=== PATIENT | male | born 1945 | race African-American/Black ===

== ENCOUNTER 2019-09-12 14:24 | Outpatient (CLI) | payer MEDICARE, SELFPAY ==
--- NOTE | ~2019-09-12 | XR_ITS ---
EXAMINATION: XR lumbar spine 2-3V EXAM DATE: 09/12/2019 14:56 INDICATION: Low back pain. TECHNIQUE: Lumber spine frontal, lateral, lateral L5-S1 projections for interpretation. Comparison is made to prior examination from 06/17/2017. FINDINGS: Mild to moderate disc disease L-1-2, L3-4, L4-5 and L5-S1, mild at L2-3. Some large bridgi ng lower thoracic endplate osteophytes. Mild upper lumbar, moderate lower lumbar facet arthropathy. T here is 3 mm retrolisthesis L3 on L4. Sacrum, sacroiliac joints, sacral arcuate lines are intact. Mil d aortic arterial sclerosis. IMPRESSION: Mild to moderate lumbar spondylosis. Reviewed, dictated and finalized at location A.
== END 2019-09-12 14:25 | disposition home or self-care (01) ==
LOC: ANHIMG 14:32
PROVIDERS: PCP Family Medicine; Visit Provider Physician Assistant Medical
DX: G89.29 Other chronic pain (principal); M54.5 Low back pain; M47.816 Spondylosis without myelopathy or radiculopathy, lumbar region
CPT/HCPCS: 72100

== ENCOUNTER 2019-09-13 06:58 | Outpatient (CLI) | payer MEDICARE, SELFPAY ==
[2019-09-13 07:55] LABS: Hematocrit 43.3 % (42.0-52.0); Hemoglobin 14.6 g/dL (14.0-18.0); Mean Corpuscular HGB Conc 33.7 g/dl (32-36); Mean Corpuscular Hemoglobin 30.2 pg (26-34); Mean Corpuscular Volume 89.6 fl (80-100); Mean Platelet Volume 9.6 fl (7.4-10.4); Platelet Count Result 222 k/mm3 (150-375); Red Blood Count 4.83 M/mm3 (4.6-6.20); Red Cell Distribution Width 13.2 % (11.5-14.5); White Blood Count 7.1 K/mm3 (4.5-10.0)
[2019-09-13 08:19] LABS: Alanine Aminotransferase 22 U/L (4-50); Albumin Level 4.2 g/dL (3.5-5.1); Alkaline Phosphatase 106 U/L (38-126); Aspartate Amino Transferase 21 U/L (17-59); Bilirubin,Total 0.5 mg/dL (0.2-1.3); Blood Urea Nitrogen 19 mg/dL (9-20); Calcium 9.5 mg/dL (8.4-10.2); Carbon Dioxide 29 mmol/L (22-30); Chloride 105 mmol/L (98-107); Cholesterol 119 mg/dL (0-200); Estimated Glomerular Filt Rate > 60; Glucose 101 mg/dL (75-110); HDL Direct 48 mg/dL; Potassium 3.8 mmol/L (3.4-5.0); Sodium 141 mmol/L (137-145); Triglycerides 132 mg/dL (<150)
[2019-09-13 08:30] LABS: LDL Cholesterol Direct 43 mg/dL
[2019-09-13 08:42] LABS: Vitamin D 25 Hydroxy 25.6 ng/mL
[2019-09-13 08:50] LABS: Prostate Specific Antigen 1.7 ng/mL (< OR = 4.0)
== END 2019-09-13 06:59 | disposition home or self-care (01) ==
PROVIDERS: PCP Family Medicine; Visit Provider Physician Assistant Medical
DX: R53.82 Chronic fatigue, unspecified (principal); E78.5 Hyperlipidemia, unspecified; Z12.5 Encounter for screening for malignant neoplasm of prostate; E55.9 Vitamin D deficiency, unspecified
CPT/HCPCS: 36415; 80053; 80061; 82306; 82607; 84153; 84443; 85027; G0103

== ENCOUNTER 2020-01-11 15:51 | Outpatient (CLI) | payer MEDICARE, SELFPAY ==
[2020-01-11 17:54] LABS: Vitamin D 25 Hydroxy 29.4 ng/mL
== END 2020-01-11 15:52 | disposition home or self-care (01) ==
LOC: ANHLAB 15:52
PROVIDERS: PCP Family Medicine; Visit Provider Nurse Practitioner Family
DX: E55.9 Vitamin D deficiency, unspecified (principal)
CPT/HCPCS: 36415; 82306

== ENCOUNTER 2020-09-05 14:12 | Outpatient (CLI) | payer MEDICARE, SELFPAY ==
--- NOTE | ~2020-09-05 | XR_ITS ---
XR lumbar spine 6V w bending DATE: 09/05/2020 15:13 INDICATION: Low back pain TECHNIQUE: AP, lateral, bilateral oblique views. Flexion and extension lateral views COMPARISON: 09/12/2019 lumbar spine FINDINGS: Diffuse idiopathic skeletal hyperostosis of the thoracolumbar spine. There is moderate multilevel degenerative disc disease of the lumbar spine. No spondylolysis or spondylolisthesis. No fracture or bone destruction. The pedicles are intact. The sacroiliac joints are normal. IMPRESSION: Diffuse idiopathic skeletal hyperostosis of the thoracic spine Multilevel degenerative disc disease of the lumbar spine Reviewed, dictated and finalized at location A.
[2020-09-05 15:02] LABS: Basophils Percent Auto 0.3 % (0.2-1.2); Eosinophils Absolute Auto 0.1 K/mm3 (0-0.3); Eosinophils Percent Auto 0.8 % (0-4.4); Hematocrit 44.4 % (42.0-52.0); Hemoglobin 14.4 g/dL (14.0-18.0); Immature Granulocyte Absolute 0.02 K/mm3 (0.00-0.031); Immature Granulocyte Percent A 0.3 % (0-0.5); Lymphocytes Absolute Auto 2.34 K/mm3 (0.9-3.2); Lymphocytes Percent Auto 29.7 % (18.3-44.2); Mean Corpuscular HGB Conc 32.4 g/dl (32-36); Mean Corpuscular Hemoglobin 29.5 pg (26-34); Mean Platelet Volume 9.8 fl (7.4-10.4); Monocytes Absolute Auto 0.4 K/mm3 (0.1-0.6); Monocytes Percent Auto 4.9 % (2.6-8.5); Neutrophils Absolute Auto 5.1 K/mm3 (1.3-6.7); Platelet Count Result 187 k/mm3 (150-375); Red Blood Count 4.88 M/mm3 (4.6-6.20); Red Cell Distribution Width 13.2 % (11.5-14.5); White Blood Count 7.9 K/mm3 (4.5-10.0)
[2020-09-05 16:51] LABS: Vitamin D 25 Hydroxy 64.4 ng/mL
[2020-09-05 17:37] LABS: Alanine Aminotransferase 6 U/L (4-50); Albumin Level 4.5 g/dL (3.5-5.1); Alkaline Phosphatase 103 U/L (38-126); Aspartate Amino Transferase 20 U/L (17-59); Cholesterol 136 mg/dL (0-200); HDL Direct 65 mg/dL; Triglycerides 82 mg/dL (<150)
[2020-09-05 17:48] LABS: LDL Cholesterol Direct 40 mg/dL
[2020-09-05 18:08] LABS: Prostate Specific Antigen 2.1 ng/mL (< OR = 4.0); Thyroid Stimulating Hormone 0.676 uIU/mL (0.465-4.680)
== END 2020-09-05 14:13 | disposition home or self-care (01) ==
LOC: ANHLAB 14:16
PROVIDERS: PCP Family Medicine; Visit Provider Family Medicine
DX: E55.9 Vitamin D deficiency, unspecified (principal); M54.5 Low back pain; G89.29 Other chronic pain; E78.5 Hyperlipidemia, unspecified; Z12.5 Encounter for screening for malignant neoplasm of prostate; Z13.220 Encounter for screening for lipoid disorders; R53.82 Chronic fatigue, unspecified; M48.14 Ankylosing hyperostosis [Forestier], thoracic region; M51.36 Other intervertebral disc degeneration, lumbar region
CPT/HCPCS: 36415; 72114; 80061; 80076; 82306; 84153; 84443; 85025; G0103

== ENCOUNTER → 2020-09-24 16:22 | Outpatient (CLI) | payer MEDICARE, SELFPAY ==
--- NOTE | ~2020-09-24 | MR_ITS ---
EXAMINATION: MR brain/brain stem wo con DATE: 09/24/2020 18:49 INDICATION: Dizziness and giddiness. TECHNIQUE: Magnetic resonance imaging (MRI) of the brain and brainstem was performed without intraven ous contrast. Sequences included sagittal and axial T1-weighted FSE, axial diffusion-weighted FS EPI, axial T2*-weighted GRE, axial T2-weighted FLAIR Propeller, and axial T2-weighted Propeller. Apparent diffusion coefficient (ADC) maps were created. COMPARISON: Brain MRI 05/09/2012 FINDINGS: There are scattered areas of nonspecific increased T2-weighted signal intensity in the cere bral white matter and helen. There is no intracranial hemorrhage, acute infarction, or abnormal intrac ranial mass lesion. The ventricles are normal in size. There is mild mucosal thickening in the ethmoi d sinuses. There are likely changes of left ocular lens replacement surgery. The mastoid air cells ar e normal. IMPRESSION: 1. Moderate nonspecific cerebral white matter disease and pontine disease, which likely represents ch ronic small vessel ischemic disease, worsened from 05/09/2012. Reviewed, dictated and finalized at location A. IMPRESSION: 1. Moderate nonspecific cerebral white matter disease and pontine disease, whic h likely represents chronic small vessel ischemic disease, worsened from 05/09/19 13.
--- NOTE | ~2020-09-24 | MR_ITS ---
EXAMINATION: MR lumbar spine wo con DATE: 09/24/2020 18:49 INDICATION: Low back pain. TECHNIQUE: Magnetic resonance imaging (MRI) of the lumbar spine was performed without intravenous con trast. Sequences included sagittal T2-weighted FSE, sagittal T2-weighted FS FSE, sagittal T1-weighted FSE, and axial T2-weighted FSE. COMPARISON: Lumbar spine radiograph 09/05/2020 FINDINGS: There is 6 degrees levocurvature of lumbar spine. There is 3 mm retrolisthesis of L5 on S1. There is mild chronic height loss of L5 vertebral body. There is mildly decreased disc height from L 1-L2 through L4-L5 and moderately decreased disc height at L5-S1. The distal spinal cord signal inten sity is normal. The conus medullaris is at L1. The following disc levels are specifically discussed: L1-L2: The disc is bulging and has an annular fissure. There is mild bilateral facet joint osteoarthr itis. There is mild bilateral neural foraminal stenosis. There is mild central canal stenosis. L2-L3: The disc is bulging and has an annular fissure. There is mild bilateral facet joint osteoarthr itis. There is mild right and moderate left neural foraminal stenosis. There is mild central canal st enosis. L3-L4: The disc is bulging and has an annular fissure. There is mild bilateral facet joint osteoarthr itis. There is moderate bilateral neural foraminal stenosis. There is mild central canal stenosis. L4-L5: The disc is bulging and has an annular fissure. There is severe bilateral facet joint osteoart hritis. There is moderate bilateral neural foraminal stenosis. There is mild central canal stenosis. L5-S1: The disc is bulging and has an annular fissure. There is mild bilateral facet joint osteoarthr itis. There is moderate bilateral neural foraminal stenosis. There is mild central canal stenosis. IMPRESSION: 1. Moderate lumbar spondylosis. Reviewed, dictated and finalized at location A.
== END ==
PROVIDERS: PCP Family Medicine; Visit Provider Family Medicine
DX: R42 Dizziness and giddiness (principal); R51.9 Headache, unspecified; M47.817 Spondylosis without myelopathy or radiculopathy, lumbosacral region; R90.82 White matter disease, unspecified
CPT/HCPCS: 70551; 72148

== ENCOUNTER 2021-07-15 11:44 | Outpatient (CLI) | payer MEDICARE, SELFPAY ==
[2021-07-15 12:22] LABS: Basophils Absolute Auto 0.1 K/mm3 (0.0-0.1); Basophils Percent Auto 0.7 % (0.2-1.2); Eosinophils Absolute Auto 0.1 K/mm3 (0-0.3); Eosinophils Percent Auto 1.9 % (0-4.4); Hematocrit 42.2 % (42.0-52.0); Immature Granulocyte Absolute 0.02 K/mm3 (0.00-0.031); Immature Granulocyte Percent A 0.3 % (0-0.5); Lymphocytes Absolute Auto 2.43 K/mm3 (0.9-3.2); Mean Corpuscular HGB Conc 33.2 g/dl (32-36); Mean Corpuscular Hemoglobin 29.9 pg (26-34); Mean Platelet Volume 9.2 fl (7.4-10.4); Monocytes Absolute Auto 0.3 K/mm3 (0.1-0.6); Monocytes Percent Auto 4.3 % (2.6-8.5); Neutrophils Absolute Auto 4.4 K/mm3 (1.3-6.7); Neutrophils Percent Auto 59.8 % (45.5-73.1); Platelet Count Result 184 k/mm3 (150-375); Red Blood Count 4.69 M/mm3 (4.6-6.20); Red Cell Distribution Width 13.7 % (11.5-14.5); White Blood Count 7.4 K/mm3 (4.5-10.0)
[2021-07-15 12:34] LABS: Alanine Aminotransferase 6 U/L (4-50); Albumin Level 4.4 g/dL (3.5-5.1); Alkaline Phosphatase 121 U/L (38-126); Anion Gap 8 mmol/L (8-16); Aspartate Amino Transferase 20 U/L (17-59); Bilirubin,Total 0.8 mg/dL (0.2-1.3); Blood Urea Nitrogen 27 mg/dL (9-20); Calcium 8.7 mg/dL (8.4-10.2); Carbon Dioxide 27 mmol/L (22-30); Chloride 105 mmol/L (98-107); Cholesterol 123 mg/dL (0-200); Estimated Glomerular Filt Rate > 60; Glucose 94 mg/dL (65-110); HDL Direct 56 mg/dL; Potassium 3.8 mmol/L (3.4-5.0); Sodium 140 mmol/L (137-145); Triglycerides 66 mg/dL (<150)
[2021-07-15 12:45] LABS: LDL Cholesterol Direct 38 mg/dL
[2021-07-15 13:04] LABS: Prostate Specific Antigen 2.4 ng/mL (< OR = 4.0)
[2021-07-15 13:38] LABS: Vitamin D 25 Hydroxy 39.6 ng/mL
== END 2021-07-15 11:45 | disposition home or self-care (01) ==
PROVIDERS: PCP Family Medicine; Visit Provider Family Medicine
DX: E55.9 Vitamin D deficiency, unspecified (principal); E78.5 Hyperlipidemia, unspecified; Z12.5 Encounter for screening for malignant neoplasm of prostate; K57.90 Diverticulosis of intestine, part unspecified, without perforation or abscess without bleeding; Z13.220 Encounter for screening for lipoid disorders
CPT/HCPCS: 36415; 80048; 80061; 80076; 82306; 84153; 85025; G0103

== ENCOUNTER 2022-07-13 15:32 | Outpatient (CLI) | payer MEDICARE, SELFPAY ==
[2022-07-13 16:21] LABS: Hemoglobin 14.5 g/dL (14.0-18.0); Mean Corpuscular HGB Conc 32.2 g/dl (32-36); Mean Corpuscular Hemoglobin 29.6 pg (26-34); Mean Corpuscular Volume 91.8 fl (80-100); Mean Platelet Volume 9.5 fl (7.4-10.4); Platelet Count Result 178 k/mm3 (150-375); Red Cell Distribution Width 14.1 % (11.5-14.5)
[2022-07-13 16:47] LABS: Alanine Aminotransferase 10 U/L (6-50); Albumin Level 4.7 g/dL (3.5-5.1); Alkaline Phosphatase 113 U/L (38-126); Anion Gap 9 mmol/L (8-16); Aspartate Amino Transferase 16 U/L (17-59); Bilirubin,Total 1.4 mg/dL (0.2-1.3); Blood Urea Nitrogen 27 mg/dL (9-20); Calcium 9.3 mg/dL (8.4-10.2); Carbon Dioxide 28 mmol/L (22-30); Chloride 103 mmol/L (98-107); Cholesterol 119 mg/dL (0-200); Estimated Glomerular Filt Rate > 60; Glucose 91 mg/dL (65-110); HDL Direct 57 mg/dL; Sodium 140 mmol/L (137-145); Triglycerides 69 mg/dL (<150)
[2022-07-13 16:58] LABS: LDL Cholesterol Direct 37 mg/dL
[2022-07-13 17:14] LABS: Prostate Specific Antigen 2.1 ng/mL (< OR = 4.0); Thyroid Stimulating Hormone 0.482 uIU/mL (0.465-4.680)
[2022-07-13 17:46] LABS: Vitamin D 25 Hydroxy 36.3 ng/mL
== END 2022-07-13 15:33 | disposition home or self-care (01) ==
PROVIDERS: PCP Family Medicine; Visit Provider Nurse Practitioner Family
DX: E78.5 Hyperlipidemia, unspecified (principal); Z12.5 Encounter for screening for malignant neoplasm of prostate; Z13.29 Encounter for screening for other suspected endocrine disorder; E55.9 Vitamin D deficiency, unspecified
CPT/HCPCS: 36415; 80053; 80061; 82306; 84153; 84443; 85027; G0103

== ENCOUNTER 2022-08-27 15:55 | Outpatient (CLI) | payer MEDICARE, SELFPAY ==
[2022-08-27 16:25] LABS: Alanine Aminotransferase 11 U/L (6-50); Albumin Level 4.3 g/dL (3.5-5.1); Alkaline Phosphatase 94 U/L (38-126); Anion Gap 7 mmol/L (8-16); Aspartate Amino Transferase 19 U/L (17-59); Blood Urea Nitrogen 26 mg/dL (9-20); Calcium 9.2 mg/dL (8.4-10.2); Carbon Dioxide 31 mmol/L (22-30); Chloride 102 mmol/L (98-107); Estimated Glomerular Filt Rate > 60; Glucose 116 mg/dL (65-110); Potassium 3.7 mmol/L (3.4-5.0); Sodium 140 mmol/L (137-145)
== END 2022-08-27 15:56 | disposition home or self-care (01) ==
LOC: ANHLAB 15:57
PROVIDERS: PCP Family Medicine; Visit Provider Nurse Practitioner Family
DX: R17 Unspecified jaundice (principal)
CPT/HCPCS: 36415; 80053

== ENCOUNTER 2022-09-03 16:51 | Outpatient (CLI) | payer MEDICARE, SELFPAY ==
[2022-09-03 19:50] LABS: Hemoglobin A1C 5.7 % (<5.7)
== END 2022-09-03 16:52 | disposition home or self-care (01) ==
PROVIDERS: PCP Family Medicine; Visit Provider Physician Assistant Medical
DX: R73.09 Other abnormal glucose (principal)
CPT/HCPCS: 36415; 83036

== ENCOUNTER 2022-10-05 16:26 | Observation (INO) | payer MEDICARE, SELFPAY ==
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
--- NOTE | ~2022-10-05 | CT_ITS ---
EXAMINATION: CT brain wo con DATE: 10/05/2022 21:17 INDICATION: Altered mental state TECHNIQUE: Computed tomography (CT) of the head was performed without intravenous contrast. The mA wa s adjusted according to patient size. Iterative reconstruction technique was employed. Exam dose: 60 5.33 mGy-cm total exam DLP. COMPARISON: 09/24/2020 MRI brain/brainstem FINDINGS: There is central and cortical cerebral and cerebellar atrophy. Prominent bilateral carotid siphon internal carotid artery calcifications. There is nonspecific dimin ished attenuation of the cerebral white matter, likely due to chronic small vessel ischemic changes. No intracranial mass lesion or hemorrhage, midline shift or mass effect is detected. No subdural or e pidural hematoma. No fracture or bone destruction of the cranial vault the mastoid air cells and included paranasal sin uses are normally developed and aerated. IMPRESSION: Cerebral and cerebellar atrophy Cerebral atherosclerosis and chronic small vessel ischemic changes of the cerebral white matter No acute intracranial finding Reviewed, dictated and finalized at Location A. Reviewed, dictated and finalized at location A. IMPRESSION: Cerebral and cerebellar atrophy Cerebral atherosclerosis and chronic small vessel ischemic changes of the cereb ral white matter No acute intracranial finding
--- NOTE | ~2022-10-05 | CT_ITS ---
EXAMINATION: CT abdomen pelvis w con DATE: 10/05/2022 21:19 INDICATION: Left lower quadrant abdominal pain TECHNIQUE: Computed tomography (CT) of the abdomen and pelvis was performed with 100 CC Omnipaque 350 intravenous contrast. Automated exposure control and iterative reconstruction technique were employe d. Exam dose: 1014.45 mGy-cm total exam DLP. COMPARISON: 09/18/2014 CT abdomen pelvis FINDINGS: There is minimal discoid atelectasis or scarring at the lung bases. Normal heart size. No pericardial or pleural effusion. No gallbladder wall thickening or pericholecystic fluid or fat stranding. No bile duct or pancreatic duct dilatation. Hepatic cysts, measuring up to 1.3 cm maximal dimension. Normal splenic size. No pancreatic mass lesi on or calcification. Normal morphology of the adrenal glands. Occasional renal cysts, the largest on the right, measuring up to 2.1 cm. No urinary tract calculus or hydroureteronephrosis is detected. There is atherosclerotic calcification of the abdominal aorta, without aneurysm. Prostate enlargement and calcifications. The urinary bladder appears unremarkable. Diverticulosis of the colon; no CT evidence of diverticulitis. Normal appendix. No bowel obstruction or intraperitoneal free air is detected. Small fat-containing umbilical hernia. Diffuse idiopathic skeletal hyperostosis of the thoracolumbar spine. Prominent multilevel degenerativ e disc disease of the lumbar spine. IMPRESSION: Prostate enlargement and calcifications Diverticulosis of the colon; no CT evidence of diverticulitis Normal appendix Hepatic and bilateral renal cysts Diffuse idiopathic skeletal hyperostosis of the thoracolumbar spine, prominent multilevel degenerativ e disc disease of the lumbar spine Reviewed, dictated and finalized at Location A. Reviewed, dictated and finalized at location A. IMPRESSION: Prostate enlargement and calcifications Diverticulosis of the colon; no CT evidence of diverticulitis Normal appendix Hepatic and bilateral renal cysts Diffuse idiopathic skeletal hyperostosis of the thoracolumbar spine, prominent multilevel degenerative disc disease of the lumbar spine
--- NOTE | ~2022-10-05 | MR_ITS ---
EXAMINATION: MR brain/brain stem wo/w con DATE: 10/07/2022 10:02 INDICATION: Altered mental status. TECHNIQUE: Magnetic resonance imaging (MRI) of the brain and brainstem was performed without and with 17 mL MultiHance intravenous contrast. COMPARISON: Head CT 10/05/2022, brain MRI 09/24/2020 FINDINGS: There is no intracranial hemorrhage, acute infarction, or abnormal intracranial mass lesion . There are scattered areas of nonspecific increased T2-weighted signal intensity in the cerebral whi te matter and helen. The ventricles are normal in size. The paranasal sinuses are clear. The mastoid a ir cells are normal. IMPRESSION: 1. Moderate nonspecific cerebral white matter disease and pontine disease, which likely represents ch ronic small vessel ischemic disease, mildly worsened from 09/24/2020. Reviewed, dictated and finalized at location A. IMPRESSION: 1. Moderate nonspecific cerebral white matter disease and pontine disease, whic h likely represents chronic small vessel ischemic disease, mildly worsened from 09/24/2020.
[2022-10-05 16:28] VITALS: BP 125/60; PULSE 106; RESP 18; TEMP 37.2; O2SAT 96
--- NOTE | 2022-10-05 18:44 | ECG_ITS ---
Measurements Intervals [place] Rate: 89 P: 41 VA: 112 QRS: 43 QRSD: 104 T: 50 QT: 362 QTc: 441 Interpretive Statements SINUS RHYTHM WITH SHORT VA INTERVAL POSSIBLE LEFT ATRIAL ENLARGEMENT BASELINE WANDER- V4 BORDERLINE ECG NO PREVIOUS ECG AVAILABLE FOR COMPARISON Electronically Signed On 10-05-2022 19:58:09 CDT by Shahriar Esparza D.O.
--- NOTE | 2022-10-05 19:36 | ED.NEUROSD ---
HPI - Neuro Symptoms/Deficit General Chief Complaint: Neuro Symptoms/Deficit Stated Complaint: slurred speech/last normal wednesday Time Seen by Provider: 10/05/22 18:35 History of Present Illness HPI Narrative: Patient is a 77-year-old male with a history of hyperlipidemia, Parkinson's disease presenting with altered mental status. Patient's daughter is at bedside and provides the history. States that for the last several days he has been slurring his speech and has seemed weaker and weaker. States that his legs have been more swollen than normal and he was supposed to go see the doctor but he never got around to making an appointment. Today she went to check on him and she was having trouble understanding him and he was too weak to walk so she brought him in for evaluation. Patient complains of lower abdominal pain. No vomiting or diarrhea. No cough or shortness of breath. No headaches, chest pain. Denies focal weakness or numbness. Related Data Home Medications Medication Instructions Recorded Confirmed aspirin 81 mg tablet,delayed 81 mg PO Q48H 11/22/20 10/06/22 release (Adult Aspirin Regimen) Linzess 145 mg PO DAILY 10/06/22 10/06/22 amitriptyline 25 mg tablet 50 mg PO HS 10/06/22 10/06/22 docusate sodium 50 mg capsule 50 mg PO Q48H 10/06/22 10/06/22 meloxicam 7.5 mg tablet 7.5 mg PO DAILY 10/06/22 10/06/22 omeprazole 40 mg capsule,delayed 40 mg PO DAILY 10/06/22 10/06/22 release tamsulosin 0.4 mg capsule 0.4 mg PO DAILY 10/06/22 10/06/22 timolol maleate 0.5 % eye drops 1 drp LEFT EYE DAILY 10/06/22 10/06/22 tizanidine 2 mg tablet 2 mg PO QHS muscle spasticity 10/06/22 10/06/22 Allergies Allergy/AdvReac Type Severity Reaction Status Date / Time Sulfa (Sulfonamide Allergy Unknown HIVES Verified 07/13/22 10:44 Antibiotics) Review of Systems Review of Systems: All systems reviewed & are unremarkable except as noted in HPI and below PMFSH Past Medical History Medical History Abdominal pain Abnormal MRI, lumbar spine Adenomatous polyp Ataxia BMI 27.0-27.9,adult BMI 28.0-28.9,adult BMI 29.0-29.9,adult Constipation Lumbar spondylosis Parkinsons disease Tinea unguium Family History Family History Sibling Cancer Hypertension Mother Family history of diabetes mellitus in first degree relative Cancer Father Cancer Unknown Family history of arthritis Family history of malignant neoplasm Social History Social History Smoking status: Former smoker Second hand tobacco smoke exposure: Yes Alcohol intake: never Substance use: never Substance use type: does not use Lack of Transportation: No Lack of Food: Never True Current Housing: I Have Housing Concerned About Future Housing: No Difficulty Paying Gas/Electric Bills: No Difficulty Paying for Meds: No Currently Unemployed: No Education: High School Diploma/GED Difficulty w/ Childcare or Family Care: No Living arrangements: with family 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 EYES: PERRLA and EOMI. ENT: Nares clear, no rhinorrhea or epistaxis. Mucous membranes dry NECK: Supple. CHEST: Clear to auscultation. No respiratory distress. HEART: Regular rate and rhythm. No murmur heard. Normal peripheral pulses. ABDOMEN: Soft, left lower quadrant tenderness, no guarding or rebound EXTREMITIES: Normal range of motion. + Bilateral pitting edema to mid calves SKIN: Warm, dry, no rash. NEURO: Patient is rather lethargic, he does open his eyes and respond appropriately but he is u
[2022-10-05 20:20] LABS: Basophils Percent Auto 0.5 % (0.2-1.2); Eosinophils Percent Auto 0.2 % (0-4.4); Hematocrit 46.6 % (42.0-52.0); Hemoglobin 15.4 g/dL (14.0-18.0); Immature Granulocyte Absolute 0.01 K/mm3 (0.00-0.031); Immature Granulocyte Percent A 0.1 % (0-0.5); Lymphocytes Absolute Auto 2.47 K/mm3 (0.9-3.2); Lymphocytes Percent Auto 30.2 % (18.3-44.2); Mean Corpuscular Hemoglobin 29.7 pg (26-34); Mean Platelet Volume 9.4 fl (7.4-10.4); Monocytes Absolute Auto 0.5 K/mm3 (0.1-0.6); Neutrophils Absolute Auto 5.2 K/mm3 (1.3-6.7); Platelet Count Result 165 k/mm3 (150-375); Red Blood Count 5.18 M/mm3 (4.6-6.20); Red Cell Distribution Width 13.3 % (11.5-14.5); White Blood Count 8.2 K/mm3 (4.5-10.0)
[2022-10-05 20:30] LABS: INR 1.1; Prothrombin Time 14.4 Seconds (11.1-14.7)
[2022-10-05 20:32] LABS: Partial Thromboplastin Time 32.5 SECONDS (22.3-36.8)
[2022-10-05 20:33] LABS: Alanine Aminotransferase 33 U/L (6-50); Albumin Level 4.8 g/dL (3.5-5.1); Alkaline Phosphatase 128 U/L (38-126); Anion Gap 6 mmol/L (8-16); Aspartate Amino Transferase 26 U/L (17-59); Bilirubin,Total 1.3 mg/dL (0.2-1.3); Blood Urea Nitrogen 33 mg/dL (9-20); Calcium 9.5 mg/dL (8.4-10.2); Carbon Dioxide 31 mmol/L (22-30); Chloride 103 mmol/L (98-107); Estimated Glomerular Filt Rate > 60; Glucose 92 mg/dL (65-110); Lipase 32 U/L (23-300); Magnesium 2.5 mg/dL (1.6-2.3); Potassium 3.5 mmol/L (3.4-5.0); Sodium 140 mmol/L (137-145)
[2022-10-05 20:36] LABS: Lactic Acid Reflex 1.5 mmol/L (0.7-2.0)
[2022-10-05] MEDS: SODIUM CHLORIDE 0.9% IV 1,000 ML 999 ML IV CONT ×2 (20:42→22:29)
[2022-10-05 20:45] LABS: NT Pro B Type Natriuretic Pept 60 pg/mL (19.9-100); Troponin I < 0.012 ng/mL (0.000-0.034)
[2022-10-05 20:56] LABS: Influenza A QL RT-PCR Negative (Negative); Influenza B QL RT-PCR Negative (Negative); SARS-CoV-2 RNA PCR Negative (Negative)
[2022-10-05 22:15] LABS: Appearance Urine Clear (Clear); Bacteria Urine None Seen /hpf; Bilirubin Urine Negative (Negative); Blood Urine Negative (Negative); Color Urine Yellow (Yellow); Glucose Urine UA Negative (Negative); Hyaline Casts Urine Present /lpf; Ketones Urine 1+ mg/dL (Negative); Leukocyte Esterase Ur Negative LEU/UL (Negative); Nitrate Urine Negative (Negative); Non Pathogenic Casts 0-2; Protein Urine 1+ mg/dL (Negative); Squamous Epithelial Cell Urine None seen /hpf (Few); WBC Urine 0-5 /hpf
[2022-10-05 22:17] LABS: Add Urine Microscopic? YES
--- NOTE | 2022-10-05 22:32 | PM.IMHP ---
H&P: HPI History of Present Illness Date/Time: 10/05/22 22:32 Chief Complaint: Slurred speech. Narrative: Patient is a 77-year-old male with a history of hyperlipidemia, Parkinson's disease presenting with altered mental status.? Patient's history is obtained from ED charts; his daughter was at bedside and provided the history.? States that for the last several days he has been slurring his speech and has seemed weaker and weaker.? States that his legs have been more swollen than normal and he was supposed to go see the doctor but he never got around to making an appointment.? Today she went to check on him and she was having trouble understanding him and he was too weak to walk so she brought him in for evaluation.? Patient complains of lower abdominal pain.? No vomiting or diarrhea.? No cough or shortness of breath.? No headaches, chest pain.? Denies focal weakness or numbness. Review of Systems Review of Systems: CONSTITUTIONAL: Negative for any fevers, chills, night sweats, tiredness, fatigue, malaise, anorexia or weight loss. CARDIOVASCULAR: Negative for chest pain, palpitations, dizziness, orthopnea or lower extremity edema. RESPIRATORY: Negative for shortness of breath, cough, wheezing, sputum. GASTROINTESTINAL: Negative for nausea vomiting diarrhea or abdominal pain. GENITOURINARY: Negative for frequency, nocturia, dysuria, hematuria. GYNECOLOGIC: Negative for abnormal bleeding. HEMATOLOGIC: Negative for any abnormal bleeding or bruising. MUSCULOSKELETAL: Negative for joint swelling, stiffness or pain. SKIN: Negative for rashes, eruptions, lesions or dryness. NEUROLOGIC: Positive for altered mental status, slurring of the speech; there is no headache, focal numbness or weakness. PSYCHIATRIC: Negative for anxiety, panic, depression. [facility] Past Medical History Medical History Abdominal pain Abnormal MRI, lumbar spine Adenomatous polyp Ataxia BMI 27.0-27.9,adult BMI 28.0-28.9,adult BMI 29.0-29.9,adult Constipation Lumbar spondylosis Parkinsons disease Tinea unguium Family History Family History Sibling Cancer Hypertension Mother Family history of diabetes mellitus in first degree relative Cancer Father Cancer Unknown Family history of arthritis Family history of malignant neoplasm Social History Social History Smoking status: Former smoker Second hand tobacco smoke exposure: Yes Alcohol intake: never Substance use: never Substance use type: does not use Lack of Transportation: No Lack of Food: Never True Current Housing: I Have Housing Concerned About Future Housing: No Difficulty Paying Gas/Electric Bills: No Difficulty Paying for Meds: No Currently Unemployed: No Education: High School Diploma/GED Difficulty w/ Childcare or Family Care: No Living arrangements: with family 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 Gender identity (if verbalized by the patient): Male Spiritual care concerns: No Agree to blood products: Yes Meds Home Medications and Allergies Home Medications Medication Instructions Recorded Confirmed Type amitriptyline 25 mg tablet See Rx Instructions .Route 10/24/20 10/06/22 Rx .COMPLEX #180 tabs aspirin 81 mg tablet,delayed 81 mg PO DAILY 11/22/20 10/06/22 History release (Adult Aspirin Regimen) carbidopa 10 mg-levodopa 100 mg 1 tablet PO TID #540 tabs 04/16/21 10/06/22 Rx tablet ropinirole 1 mg tablet 1 mg PO BID #180 tabs 01/08/22 10/06/22 Rx atorvastatin 40 mg tablet 40 mg PO DAILY #90 tabs 06/10/22 10/06/22 Rx meloxicam 7.5 mg tablet See Rx Instructions .Route 07/27/22 10/06/22 Rx .COMPLEX #90 tabs carbidopa 25 mg-levodopa 250 mg 1 tablet PO BID #180 tabs 09/02/22 10/06/22 Rx disintegrati
[2022-10-05 23:25] VITALS: BP 147/61; PULSE 93; RESP 16; TEMP 36.8; O2SAT 97; BMI 30.5
--- NOTE | 2022-10-05 23:26 | ADMGEN ---
This patient, Marline Burleson, was admitted to 3 Med Surg Room 316-02. Patient/family oriented to hospital policies and general routines including ID bracelet, bed and alarms, visiting hours, pain management, procedures, bathroom and other care routines, personal items, smoking policy, room service/diet, and visiting hours. Information on how to activate the Rapid Response Team has been discussed. Patient/Family are encouraged to report perceived risks to care and to ask questions if they do not understand what they are told or what they should do.
[2022-10-05 23:27] VITALS: BMI 26.9
[2022-10-06 00:15] LABS: Troponin I < 0.012 ng/mL (0.000-0.034)
[2022-10-06 03:07] LABS: Troponin I < 0.012 ng/mL (0.000-0.034)
[2022-10-06] MEDS: LINACLOTIDE 145 MCG CAPSULE PO (05:42)
[2022-10-06 05:51] VITALS: BP 124/60; PULSE 71; RESP 14; TEMP 36.3; O2SAT 99
[2022-10-06 06:20] LABS: Anion Gap 6 mmol/L (8-16); Blood Urea Nitrogen 31 mg/dL (9-20); Calcium 8.4 mg/dL (8.4-10.2); Carbon Dioxide 25 mmol/L (22-30); Chloride 108 mmol/L (98-107); Estimated CRCL calculation 62 ml/min; Estimated Glomerular Filt Rate > 60; Glucose 111 mg/dL (65-110); Potassium 3.3 mmol/L (3.4-5.0); Sodium 139 mmol/L (137-145)
--- NOTE | 2022-10-06 06:43 | PC.NURSE ---
med list completed with written med list carried by pt's daughter. pt's daughter stated to this RN that her father takes 2 types of carbidopa-levodopa at 2 different strengths, one of which is dissolvable and he takes TID, the other is not dissolvable and he takes that one BID
[2022-10-06] MEDS: ATORVASTATIN 40 MG TABLET PO (09:05)
[2022-10-06] MEDS: rOPINIRole HCL 1 MG TABLET PO ×2 (09:05→20:57)
[2022-10-06] MEDS: PANTOPRAZOLE 40 MG TABLET PO (09:05)
[2022-10-06] MEDS: ASPIRIN 81 MG ENTERIC TABLET PO (09:06)
[2022-10-06] MEDS: TIMOLOL MALEATE 0.5% OP SOLN 5 ML BOTTLE 1 DROP EACH EYE (09:06)
[2022-10-06] MEDS: ENOXAPARIN 40 MG/0.4 ML SYRINGE SUB-Q (09:10)
[2022-10-06] MEDS: DOCUSATE SODIUM LIQ 100 MG/10 ML UDC 50 MG PO (09:10)
--- NOTE | 2022-10-06 09:20 | PCOTNOTE ---
Attempted occupational therapy evaluation, patient refused due to eating breakfast and RN assisting with eye drops. Following.
[2022-10-06] MEDS: POTASSIUM CHLORIDE 20 MEQ ER TABLET 40 MEQ PO (10:43)
[2022-10-06] MEDS: CARBIDOPA/LEVODOPA 25/250 MG TABLET 1 TABLET PO ×2 (10:44→20:57)
--- NOTE | 2022-10-06 11:42 | WPDNEURCNPN ---
Assessment and Plan Assessment and plan (1) Parkinsons disease: Code(s): G20 - Parkinson's disease Status: Acute (2) Altered mental status: Code(s): R41.82 - Altered mental status, unspecified Status: Acute (3) Gait difficulty: Code(s): R26.9 - Unspecified abnormalities of gait and mobility Status: Acute Plan Marline Burleson is a 77 year old male with a history of Parkinson's disease resenting due to altered mental status and difficulty walking. Seems to be related to medication non-compliance as patient had recently stopped taking his Sinemet. - Resume home dose of Sinemet 10-100mg TID, and 25-250mg BID - MRI brain has been ordered and pending - He does not have a Neurologist -- will need outpatient follow-up Consult date: 10/06/22 Reason for consult: Altered mental status HPI: Marline Burleson is a 77 year old male with a history of Parkinson's disease resenting due to altered mental status. Patient was brought in by his daughter after she noted that for the past few days his speech has been more slurred and he overall has become weaker. She noted that his legs have become more swollen as well. On day of presentation she went to check on him and was having trouble understanding him and he was too weak to ambulate which is why she brought him in. In the ED he was in sinus rhythm. CT head showed chronic microvascular disease but no acute changes. UA was negative for UTI and rest of lab work was unrevealing. He currently takes Sinemet 10-100mg 1 tablet TID, 25-250mg tablet BID, and Ropinirole 1mg BID. MRI brain has been ordered and is pending. Per daughter, patient stopped taking his Sinemet a few days ago before his gait started worsening due to his concerns that it was causing burning back pain. He discontinued it completely. He continued to take the Ropinirole. Patient reports that the burning pain is better today. Family feels that he is at his baseline today. Review of Systems Constitutional: Constitutional: Denies chills, Reports fatigue, Denies fever(s), Reports lethargy and Denies weight loss Eyes: Eyes: Denies diplopia and Denies loss of vision ENT: Denies dizziness, Denies hearing loss and Denies tinnitus Cardiovascular: Cardiovascular: Denies chest pain, Denies syncope and Denies dyspnea Respiratory: Respiratory: Denies cough, Denies dyspnea and Denies wheezing Gastrointestinal: Gastrointestinal: Denies abdominal pain, Denies change in bowel habits and Denies vomiting Genitourinary: Genitourinary: Denies urinary incontinence Musculoskeletal: Musculoskeletal: Reports back pain, Denies arthralgias and Denies joint swelling Integumentary/Breasts: Skin/Breast: Reports pruritus, Denies new lesions and Denies rash Neurologic: Reports as per HPI, Reports confusion, Denies dizziness, Denies syncope and Denies loss of vision Psychiatric: Psychiatric: Denies anxiety, Reports confusion and Denies depression Endocrine: Endocrine: Denies cold intolerance and Denies heat intolerance Hematologic/Lymphatic: Hematologic/Lymphatic: Denies easy bleeding and Denies easy bruising Allergic/Immunologic: Allergic/Immunologic: Denies no additional allergic/immunologic complaints and Denies wheezing PMFSH Past Medical History Medical History Abdominal pain Abnormal MRI, lumbar spine Adenomatous polyp Ataxia BMI 27.0-27.9,adult BMI 28.0-28.9,adult BMI 29.0-29.9,adult Constipation Lumbar spondylosis Parkinsons disease Tinea unguium Family History Family History Sibling Cancer Hypertension Mother Family history of diabetes mellitus in first degree relative Cancer Father Cancer Unknown Family history of arthritis Family history of malignant neoplasm Social History Social History Smoking status: Former smoker
--- NOTE | 2022-10-06 12:54 | WPDURCON ---
Assessment and Plan Assessment and plan (1) BPH (benign prostatic hyperplasia): Code(s): N40.0 - Benign prostatic hyperplasia without lower urinary tract symptoms Status: Acute (2) Frequency of urination: Code(s): R35.0 - Frequency of micturition Status: Acute Assessment and Plan: bph and Parkinsonism can certainly result in irritable voiding. Need to eval voiding efficiency. Plan cont flomax check PVR if greater than 200cc then consider straight cath Amitriptyline is good for over active bladder if emptying well need f/u in 1-2 weeks as outpatient with Drs. Chauhan or [facility] Consult Note HPI Date Seen: 10/06/22 Requesting Physician: Eleonora Perez MD Primary Care Provider: Bubba Mari MD Consult Narrative Narrative: Marline Burleson is a 77 year old male with a history of Parkinson's disease admitted due to altered mental status. Patient was brought in by his daughter after she noted that for the past few days his speech has been more slurred and he overall has become weaker. She noted that his legs have become more swollen as well. On day of presentation she went to check on him and was having trouble understanding him and he was too weak to ambulate which is why she brought him in. In the ED he was in sinus rhythm. CT head showed chronic microvascular disease but no acute changes. UA was negative for UTI and rest of lab work was unrevealing. He currently takes Sinemet 10-100mg 1 tablet TID, 25-250mg tablet BID, and Ropinirole 1mg BID. MRI brain has been ordered and is pending. Pt also has history of bph on Tamsulosin with chronic complaints of urinary frequency and urgency. Review of Systems Constitutional: Constitutional: Reports no additional constitutional complaints Cardiovascular: Cardiovascular: Reports no additional cardiovascular complaints Respiratory: Respiratory: Reports no additional respiratory complaints Gastrointestinal: Gastrointestinal: Reports no additional gastrointestinal complaints Genitourinary: Genitourinary: Reports urinary frequency, Reports urinary incontinence and Reports urinary urgency [facility] Past Medical History Medical History Abdominal pain Abnormal MRI, lumbar spine Adenomatous polyp Ataxia BMI 27.0-27.9,adult BMI 28.0-28.9,adult BMI 29.0-29.9,adult Constipation Lumbar spondylosis Parkinsons disease Tinea unguium Family History Family History Sibling Cancer Hypertension Mother Family history of diabetes mellitus in first degree relative Cancer Father Cancer Unknown Family history of arthritis Family history of malignant neoplasm Social History Social History Smoking status: Former smoker Second hand tobacco smoke exposure: Yes Alcohol intake: never Substance use: never Substance use type: does not use Lack of Transportation: No Lack of Food: Never True Current Housing: I Have Housing Concerned About Future Housing: No Difficulty Paying Gas/Electric Bills: No Difficulty Paying for Meds: No Currently Unemployed: No Education: High School Diploma/GED Difficulty w/ Childcare or Family Care: No Living arrangements: with family 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 Gender identity (if verbalized by the patient): Male Spiritual care concerns: No Agree to blood products: Yes Meds Home Medications and Allergies Home Medications Medication Instructions Recorded Confirmed Type aspirin 81 mg tablet,delayed 81 mg PO Q48H 11/22/20 10/06/22 History release (Adult Aspirin Regimen) carbidopa 10 mg-levodopa 100 mg 1 tablet PO TID #540 tabs 04/16/21 10/06/22 Rx tablet ropinirole 1 mg tablet 1 mg PO BID #180 tabs 01/08/22 10/06/22 Rx atorvastatin 40 mg ta
[2022-10-06 13:02] LABS: Ammonia 21 umol/L (9-30)
[2022-10-06 13:18] VITALS: BMI 26.9
--- NOTE | 2022-10-06 13:18 | WPDPN ---
Progress Note: A&P Assessment and Plan (1) TIA (transient ischemic attack): Code(s): G45.9 - Transient cerebral ischemic attack, unspecified Status: Acute Assessment and Plan: Patient reported to have SIRS speech. He is currently nonfocal. We will admit the patient overnight for observation, serial neuro check. Initial head CT imaging did not reveal any acute changes. Patient was started on aspirin for prophylaxis, Lipitor. Neurology evaluation. 10/06/2022 interval history: patient is 77 y/o male with history of Parkinson disease presented with c/o difficulty with ambulation, speech and weakness apparently had not been taking his Parkinson medications for sometime, seen by neurologist and resumed his home medication, patient CT of head is negative for any acute injury, MRI is pending and he is currently working with PT/OT and patient will benefit going to rehab, (2) Chronic fatigue: Code(s): R53.82 - Chronic fatigue, unspecified Status: Acute Assessment and Plan: Patient has a history of chronic fatigue, currently is exhibiting evidence of generalized weakness and deconditioning. He has not been feeling well at home. There is an element of failure to thrive. PT and OT evaluation. (3) Chronic low back pain: Qualifiers: Back pain laterality: bilateral Sciatica presence: without sciatica Qualified Code(s): M54.5 - Low back pain; G89.29 - Other chronic pain Code(s): M54.5 - Low back pain; G89.29 - Other chronic pain Status: Acute Assessment and Plan: Pain management as needed. (4) BMI 27.0-27.9,adult: Code(s): Z68.27 - Body mass index [BMI] 27.0-27.9, adult Status: Acute Assessment and Plan: Encourage physical activity. (5) Parkinsons disease: Code(s): G20 - Parkinson's disease Status: Acute Assessment and Plan: Continue carbidopa levodopa. Plan DVT prophylaxis with Lovenox and deandre hoses. Subjective Date/time seen: 10/06/22 13:18 Interval history: Slurred speech. HPI-Narrative: Patient is a 77-year-old male with a history of hyperlipidemia, Parkinson's disease presenting with altered mental status.? Patient's history is obtained from ED charts; his daughter was at bedside and provided the history.? States that for the last several days he has been slurring his speech and has seemed weaker and weaker.? States that his legs have been more swollen than normal and he was supposed to go see the doctor but he never got around to making an appointment.? Today she went to check on him and she was having trouble understanding him and he was too weak to walk so she brought him in for evaluation.? Patient complains of lower abdominal pain.? No vomiting or diarrhea.? No cough or shortness of breath.? No headaches, chest pain.? Denies focal weakness or numbness. 10/06/2022 interval history: patient is 77 y/o male with history of Parkinson disease presented with c/o difficulty with ambulation, speech and weakness apparently had not been taking his Parkinson medications for sometime, seen by neurologist and resumed his home medication, patient CT of head is negative for any acute injury, MRI is pending and he is currently working with PT/OT and patient will benefit going to rehab, Review of Systems Constitutional: Constitutional: Reports no additional constitutional complaints Exam Narrative: Patient is comfortable, NAD HEENT: eyes are clear and none icteric LUNGS: Normal respiratory effort ABD: Not distended Lower extremities: no edema SKIN: nonjaundiced Neuro: grossly intact. Objective Data Vital Signs Vital Signs: Vital Signs - 24 hr 10/05/22 16:28 10/05/22 23:25 10/06/22 05:51 Temperature 98.9 F 98.2 F 97.4 F L Pulse Rate 106 H 93 71 Respiratory Rate 18 16 14 Blood Pressure 125/60 147/61 H 124/60 Pulse Oximetry 96 97 99 Oxygen Delivery Room Air Intake/Output Intake/Output: Intake & Output
[2022-10-06 14:00] VITALS: BP 97/53; PULSE 74; RESP 22; TEMP 36.2; O2SAT 97
[2022-10-06 14:00] LABS: Folic Acid 4.2 ng/mL (2.76->20)
[2022-10-06] MEDS: CARBIDOPA/LEVODOPA 10/100 MG TABLET 1 TABLET PO ×2 (15:00→19:30)
[2022-10-06] MEDS: TIZANIDINE HCL 2 MG TABLET PO (20:57)
[2022-10-06 21:41] VITALS: O2SAT 99
--- NOTE | 2022-10-06 21:48 | PC.NURSE ---
pt c/o frequency of urine. pt bladder scanned after voiding. post-void residual is 269mL
[2022-10-06 21:56] VITALS: BP 132/66; PULSE 72; RESP 14; TEMP 36.1; O2SAT 100
[2022-10-06] MEDS: CYCLOBENZAPRINE HCL 5 MG TABLET PO (23:56)
--- NOTE | 2022-10-07 00:14 | PC.NURSE ---
pt states he thought he voided, but is unable to void. Pt bladder scanned, and is retaining 357mL of urine at this time. Call placed to [facility], and one time order for straight catheterization has been received
[2022-10-07 06:00] VITALS: BP 134/62; PULSE 61; RESP 14; TEMP 36.9; O2SAT 100
[2022-10-07 06:08] LABS: Hematocrit 41.5 % (42.0-52.0); Hemoglobin 13.2 g/dL (14.0-18.0); Immature Platelet Fraction Pct 3.2 % (0.9-11.2); Mean Corpuscular HGB Conc 31.8 g/dl (32-36); Mean Corpuscular Hemoglobin 29.2 pg (26-34); Mean Corpuscular Volume 91.8 fl (80-100); Mean Platelet Volume 10.2 fl (7.4-10.4); Platelet Count Result 101 k/mm3 (150-375); Red Blood Count 4.52 M/mm3 (4.6-6.20); Red Cell Distribution Width 13.2 % (11.5-14.5); White Blood Count 7.6 K/mm3 (4.5-10.0)
[2022-10-07 06:16] LABS: Anion Gap 2 mmol/L (8-16); Blood Urea Nitrogen 26 mg/dL (9-20); Calcium 8.7 mg/dL (8.4-10.2); Carbon Dioxide 30 mmol/L (22-30); Chloride 108 mmol/L (98-107); Estimated CRCL calculation 69 ml/min; Estimated Glomerular Filt Rate > 60; Glucose 93 mg/dL (65-110); Potassium 3.7 mmol/L (3.4-5.0); Sodium 140 mmol/L (137-145)
[2022-10-07] MEDS: TIMOLOL MALEATE 0.5% OP SOLN 5 ML BOTTLE 1 DROP LEFT EYE (08:16)
[2022-10-07] MEDS: CARBIDOPA/LEVODOPA 10/100 MG TABLET 1 TABLET PO ×3 (08:16→17:01)
[2022-10-07] MEDS: rOPINIRole HCL 1 MG TABLET PO ×2 (08:16→20:26)
[2022-10-07] MEDS: ATORVASTATIN 40 MG TABLET PO (08:17)
[2022-10-07] MEDS: ASPIRIN 81 MG ENTERIC TABLET PO (08:17)
[2022-10-07] MEDS: PANTOPRAZOLE 40 MG TABLET PO (08:17)
[2022-10-07] MEDS: CARBIDOPA/LEVODOPA 25/250 MG TABLET 1 TABLET PO ×2 (08:17→20:26)
--- NOTE | 2022-10-07 12:21 | WPDPN ---
Progress Note: A&P Assessment and Plan (1) TIA (transient ischemic attack): Code(s): G45.9 - Transient cerebral ischemic attack, unspecified Status: Acute Assessment and Plan: Patient reported to have SIRS speech. He is currently nonfocal. We will admit the patient overnight for observation, serial neuro check. Initial head CT imaging did not reveal any acute changes. Patient was started on aspirin for prophylaxis, Lipitor. Neurology evaluation. 10/07/2022 interval history: patient is 77 y/o male with history of Parkinson disease presented with c/o difficulty with ambulation, speech and weakness apparently had not been taking his Parkinson medications for sometime, seen by neurologist and resumed his home medication, patient CT of head is negative for any acute injury, MRI of the terrence showed Moderate nonspecific cerebral white matter disease and pontine disease, which likely represents chronic small vessel ischemic disease, mildly worsened from 09/24/2020. patient also has urgency of urination but urine volume is small patient is unable to control, was seen by an urologist, patient had Ct scan of abdomen and pelvic and showed enlarged prostate will continue flomax and monitor and he is working with PT/OT and patient will benefit going to rehab. (2) Chronic fatigue: Code(s): R53.82 - Chronic fatigue, unspecified Status: Acute Assessment and Plan: Patient has a history of chronic fatigue, currently is exhibiting evidence of generalized weakness and deconditioning. He has not been feeling well at home. There is an element of failure to thrive. PT and OT evaluation. (3) Chronic low back pain: Qualifiers: Back pain laterality: bilateral Sciatica presence: without sciatica Qualified Code(s): M54.5 - Low back pain; G89.29 - Other chronic pain Code(s): M54.5 - Low back pain; G89.29 - Other chronic pain Status: Acute Assessment and Plan: Pain management as needed. (4) BMI 27.0-27.9,adult: Code(s): Z68.27 - Body mass index [BMI] 27.0-27.9, adult Status: Acute Assessment and Plan: Encourage physical activity. (5) Parkinsons disease: Code(s): G20 - Parkinson's disease Status: Acute Assessment and Plan: Continue carbidopa levodopa. Plan DVT prophylaxis with Lovenox and deandre hoses. Subjective Date/time seen: 10/07/22 12:21 Interval history: Slurred speech. HPI-Narrative: Patient is a 77-year-old male with a history of hyperlipidemia, Parkinson's disease presenting with altered mental status.? Patient's history is obtained from ED charts; his daughter was at bedside and provided the history.? States that for the last several days he has been slurring his speech and has seemed weaker and weaker.? States that his legs have been more swollen than normal and he was supposed to go see the doctor but he never got around to making an appointment.? Today she went to check on him and she was having trouble understanding him and he was too weak to walk so she brought him in for evaluation.? Patient complains of lower abdominal pain.? No vomiting or diarrhea.? No cough or shortness of breath.? No headaches, chest pain.? Denies focal weakness or numbness. 10/07/2022 interval history: patient is 77 y/o male with history of Parkinson disease presented with c/o difficulty with ambulation, speech and weakness apparently had not been taking his Parkinson medications for sometime, seen by neurologist and resumed his home medication, patient CT of head is negative for any acute injury, MRI of the terrence showed Moderate nonspecific cerebral white matter disease and pontine disease, which likely represents chronic small vessel ischemic disease, mildly worsened from 09/24/2020. patient also has urgency of urination but urine volume is small patient is unable to control, was seen by an urologist, patient had Ct scan of abdomen and pelvic and showed enlarged prostate w
[2022-10-07 14:00] VITALS: BP 105/57; PULSE 72; RESP 22; TEMP 36.1; O2SAT 100
[2022-10-07 20:00] VITALS: PULSE 76; RESP 16; O2SAT 96
[2022-10-07] MEDS: TIZANIDINE HCL 2 MG TABLET PO (20:26)
[2022-10-07 22:36] VITALS: BP 148/67; PULSE 76; RESP 16; TEMP 36.7; O2SAT 96
[2022-10-08] MEDS: CYCLOBENZAPRINE HCL 5 MG TABLET PO ×2 (01:14→09:30)
[2022-10-08 05:39] VITALS: BP 184/97; PULSE 69; RESP 18; TEMP 36.4; O2SAT 100
[2022-10-08 06:14] LABS: Hematocrit 42.3 % (42.0-52.0); Hemoglobin 14.1 g/dL (14.0-18.0); Immature Platelet Fraction Pct 4.1 % (0.9-11.2); Mean Corpuscular HGB Conc 33.3 g/dl (32-36); Mean Corpuscular Hemoglobin 30.3 pg (26-34); Mean Corpuscular Volume 90.8 fl (80-100); Mean Platelet Volume 10.3 fl (7.4-10.4); Platelet Count Result 107 k/mm3 (150-375); Red Blood Count 4.66 M/mm3 (4.6-6.20); White Blood Count 6.3 K/mm3 (4.5-10.0)
[2022-10-08] MEDS: LINACLOTIDE 145 MCG CAPSULE PO (06:21)
[2022-10-08 06:28] LABS: Anion Gap 7 mmol/L (8-16); Blood Urea Nitrogen 18 mg/dL (9-20); Carbon Dioxide 27 mmol/L (22-30); Chloride 105 mmol/L (98-107); Estimated CRCL calculation 69 ml/min; Estimated Glomerular Filt Rate > 60; Glucose 103 mg/dL (65-110); Magnesium 1.9 mg/dL (1.6-2.3); Potassium 3.6 mmol/L (3.4-5.0); Sodium 139 mmol/L (137-145)
[2022-10-08 08:00] VITALS: PULSE 69; RESP 18; O2SAT 100
[2022-10-08] MEDS: ENOXAPARIN 40 MG/0.4 ML SYRINGE SUB-Q (09:29)
[2022-10-08] MEDS: ATORVASTATIN 40 MG TABLET PO (09:30)
[2022-10-08] MEDS: PANTOPRAZOLE 40 MG TABLET PO (09:30)
[2022-10-08] MEDS: TIMOLOL MALEATE 0.5% OP SOLN 5 ML BOTTLE 1 DROP LEFT EYE (09:30)
[2022-10-08] MEDS: CARBIDOPA/LEVODOPA 10/100 MG TABLET 1 TABLET PO ×2 (09:30→12:30)
[2022-10-08] MEDS: CARBIDOPA/LEVODOPA 25/250 MG TABLET 1 TABLET PO (09:31)
[2022-10-08] MEDS: rOPINIRole HCL 1 MG TABLET PO (09:31)
[2022-10-08] MEDS: ASPIRIN 81 MG ENTERIC TABLET PO (09:31)
--- NOTE | 2022-10-08 12:12 | PM.DS ---
DS: Admitting Diagnosis Discharge Date 10/08/2022 Admitting Diagnosis Slurred speech DS: Discharge Diagnosis Discharge Diagnosis (1) TIA (transient ischemic attack): Code(s): G45.9 - Transient cerebral ischemic attack, unspecified Status: Acute Assessment and Plan: Patient reported to have SIRS speech. He is currently nonfocal. We will admit the patient overnight for observation, serial neuro check. Initial head CT imaging did not reveal any acute changes. Patient was started on aspirin for prophylaxis, Lipitor. Neurology evaluation. 10/07/2022 interval history: patient is 77 y/o male with history of Parkinson disease presented with c/o difficulty with ambulation, speech and weakness apparently had not been taking his Parkinson medications for sometime, seen by neurologist and resumed his home medication, patient CT of head is negative for any acute injury, MRI of the terrence showed Moderate nonspecific cerebral white matter disease and pontine disease, which likely represents chronic small vessel ischemic disease, mildly worsened from 09/24/2020. patient also has urgency of urination but urine volume is small patient is unable to control, was seen by an urologist, patient had Ct scan of abdomen and pelvic and showed enlarged prostate will continue flomax and monitor and he is working with PT/OT and patient will benefit going to rehab. (2) Chronic fatigue: Code(s): R53.82 - Chronic fatigue, unspecified Status: Acute Assessment and Plan: Patient has a history of chronic fatigue, currently is exhibiting evidence of generalized weakness and deconditioning. He has not been feeling well at home. There is an element of failure to thrive. PT and OT evaluation. (3) Chronic low back pain: Qualifiers: Back pain laterality: bilateral Sciatica presence: without sciatica Qualified Code(s): M54.5 - Low back pain; G89.29 - Other chronic pain Code(s): M54.5 - Low back pain; G89.29 - Other chronic pain Status: Acute Assessment and Plan: Pain management as needed. (4) BMI 27.0-27.9,adult: Code(s): Z68.27 - Body mass index [BMI] 27.0-27.9, adult Status: Acute Assessment and Plan: Encourage physical activity. (5) Parkinsons disease: Code(s): G20 - Parkinson's disease Status: Acute Assessment and Plan: Continue carbidopa levodopa. Plan DVT prophylaxis with Lovenox and denadre hoses. DS: Summary Hospital Course Reason for hospitalization: Slurred speech. Narrative: Patient is a 77-year-old male with a history of hyperlipidemia, Parkinson's disease presenting with altered mental status.? Patient's history is obtained from ED charts; his daughter was at bedside and provided the history.? States that for the last several days he has been slurring his speech and has seemed weaker and weaker.? States that his legs have been more swollen than normal and he was supposed to go see the doctor but he never got around to making an appointment.? Today she went to check on him and she was having trouble understanding him and he was too weak to walk so she brought him in for evaluation.? Patient complains of lower abdominal pain.? No vomiting or diarrhea.? No cough or shortness of breath.? No headaches, chest pain.? Denies focal weakness or numbness. Hospital Course: ?patient is 77 y/o male with history of Parkinson disease presented with c/o difficulty with ambulation, speech and weakness apparently had not been taking his Parkinson medications for sometime, seen by neurologist and resumed his home medication, patient CT of head is negative for any acute injury, MRI of the terrence showed?Moderate nonspecific cerebral white matter disease and pontine disease, which likely represents chronic small vessel ischemic disease, mildly worsened from 09/24/2020. patient also has urgency of urination but urine volume is small patient is unable to control, was seen by an urologi
[2022-10-08 14:00] VITALS: BP 128/51; PULSE 80; RESP 18; TEMP 36.1; O2SAT 100
== END 2022-10-08 15:44 ==
LOC: ANHED 18:56 → ANH3MEDSUR 10-08 09:12
PROVIDERS: Student in an Organized Health Care Education/Training Program; Admitting Provider Internal Medicine; Emergency Provider Emergency Medicine; PCP Family Medicine; Visit Provider Family Medicine
DX: G45.9 Transient cerebral ischemic attack, unspecified (principal); G20 Parkinson's disease; R26.9 Unspecified abnormalities of gait and mobility; Z20.822 Contact with and (suspected) exposure to COVID-19; E78.5 Hyperlipidemia, unspecified; R60.0 Localized edema; R10.30 Lower abdominal pain, unspecified; I67.2 Cerebral atherosclerosis; R90.82 White matter disease, unspecified; R53.82 Chronic fatigue, unspecified; N40.0 Benign prostatic hyperplasia without lower urinary tract symptoms; R35.0 Frequency of micturition; N28.1 Cyst of kidney, acquired; M85.88 Other specified disorders of bone density and structure, other site; K57.90 Diverticulosis of intestine, part unspecified, without perforation or abscess without bleeding; K76.89 Other specified diseases of liver; G89.29 Other chronic pain; M54.59 Other low back pain; Z79.891 Long term (current) use of opiate analgesic; Z79.82 Long term (current) use of aspirin; Z79.899 Other long term (current) drug therapy
CPT/HCPCS: 36415; 70450; 70553; 71045; 74177; 80048; 80053; 81001; 82140; 82607; 82746; 83605; 83690; 83735; 83880; 84484; 85025; 85027; 85055; 85610; 85730; 87040; 87636; 93005; 96360; 96372; 97110; 97116; 97161; 97165; 97530; 97535; 99285; A9270; A9577; G0378; J1650; J7030; Q9967

== ENCOUNTER 2023-10-02 13:39 | Outpatient (CLI) | payer MEDICARE, SELFPAY ==
[2023-10-02 14:04] LABS: Hematocrit 40.8 % (42.0-52.0); Hemoglobin 13.5 g/dL (14.0-18.0); Immature Platelet Fraction Pct 2.3 % (0.9-11.2); Mean Corpuscular HGB Conc 33.1 g/dl (32-36); Mean Corpuscular Hemoglobin 29.9 pg (26-34); Mean Corpuscular Volume 90.5 fl (80-100); Mean Platelet Volume 9.1 fl (7.4-10.4); Platelet Count Result 127 k/mm3 (150-375); Red Blood Count 4.51 M/mm3 (4.6-6.20); Red Cell Distribution Width 13.5 % (11.5-14.5); White Blood Count 8.5 K/mm3 (4.5-10.0)
[2023-10-02 14:13] LABS: Albumin Level 4.4 g/dL (3.5-5.1); Alkaline Phosphatase 118 U/L (38-126); Anion Gap 5 mmol/L (4-12); Aspartate Amino Transferase 15 U/L (17-59); Blood Urea Nitrogen 27 mg/dL (9-20); Calcium 9.1 mg/dL (8.4-10.2); Carbon Dioxide 29 mmol/L (22-30); Chloride 107 mmol/L (98-107); Cholesterol 103 mg/dL (0-200); Estimated Glomerular Filt Rate > 60; Glucose 91 mg/dL (65-110); HDL Direct 55 mg/dL; Potassium 3.8 mmol/L (3.4-5.0); Sodium 141 mmol/L (137-145); Triglycerides 85 mg/dL (<150)
[2023-10-02 14:15] LABS: Alanine Aminotransferase < 6 U/L (6-50)
[2023-10-02 14:24] LABS: LDL Cholesterol Direct 39 mg/dL
[2023-10-02 14:44] LABS: Prostate Specific Antigen 3.9 ng/mL (< OR = 4.0); Thyroid Stimulating Hormone 0.664 uIU/mL (0.465-4.680)
== END 2023-10-02 13:40 | disposition home or self-care (01) ==
LOC: ANHLAB 13:43
PROVIDERS: PCP Family Medicine; Visit Provider Family Medicine
DX: E78.5 Hyperlipidemia, unspecified (principal); G45.9 Transient cerebral ischemic attack, unspecified; G20.B1 Parkinson's disease with dyskinesia, without mention of fluctuations; K59.04 Chronic idiopathic constipation; E55.9 Vitamin D deficiency, unspecified; K59.00 Constipation, unspecified; N40.0 Benign prostatic hyperplasia without lower urinary tract symptoms; R73.09 Other abnormal glucose; Z13.220 Encounter for screening for lipoid disorders; Z12.5 Encounter for screening for malignant neoplasm of prostate
CPT/HCPCS: 36415; 80053; 80061; 82248; 82306; 84153; 84443; 85027; 85055

== ENCOUNTER 2024-01-06 13:36 | Emergency (ER) | payer MEDICARE, SELFPAY ==
--- NOTE | ~2024-01-06 | CT_ITS ---
Non-contrast CT scan of the Abdomen and Pelvis Clinical indication: Abdominal pain, dysuria Technique: 2.5 mm axial scans were obtained through the abdomen and pelvis without intravenous or or al contrast. Dose reduction technique was used on this scan by utilizing automated exposure control a nd iterative reconstruction technique. The dose-length product (DLP) was 672.38 mGy-cm. COMPARISON: 10/05/2022 Findings: Images through the lung bases reveal no abnormalities. 2 mm nonobstructing left renal stone present. No right renal stone. No ureteral stone or hydronephros is on either side. Right renal cyst noted. The liver, spleen, pancreas, and adrenals appear normal. Small layering gallstones are present. There are atherosclerotic calcifications of the aorta. . There is no evidence of bowel obstruction. Images through the pelvis were performed. There is no evidence of ascites or lymphadenopathy. Urinary bladder unremarkable. Prostate gland enlarged. No pelvic mass evident. 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 Impression: 2 mm nonobstructing left renal stone. Enlarged prostate gland. Reviewed, dictated and finalized at location . Impression: 2 mm nonobstructing left renal stone. Enlarged prostate gland.
--- NOTE | 2024-01-06 14:00 | ED.MALEGU ---
HPI - Male Genitourinary General Chief complaint: Urogenital-Male <NEEMA Bowens Last Filed: 01/06/24 14:08> Stated complaint: trouble urinating <NEEMA Bowens Last Filed: 01/06/24 14:08> Time Seen by Provider: 01/06/24 14:01 <NEEMA Bowens Last Filed: 01/06/24 14:08> Focused HPI: Patient is an 78 y/o male who presents to the ED with c/o difficulty urinating. Patient reports he is able to urinate a small amount this morning, but still feels as though his bladder is full. He was having some pain throughout his left-sided abdomen prior to arrival which he states has slightly improved since then. States he has previously seen Dr Chauhan with Urology, who recommended catheter, though patient did not want this. Denies hx of stones. Denies N/V, fevers. GENERAL: Well-appearing, well-nourished, and in no acute distress. HEAD: Normocephalic, atraumatic. CHEST: Clear to auscultation. ?No respiratory distress. HEART: Regular rate and rhythm.? ABD: Mild TTP throughout lower abdomen, no rebound. Mild fullness of bladder. NEURO: ?Alert and oriented x3. Patient screened in triage and initial orders placed.? ?Additional care and disposition to be based upon?diagnostic testing and treatment. <Eleanor Cervantes PA-C - Last Filed: 01/06/24 14:08> Source: patient <NEEMA Bowens Last Filed: 01/06/24 14:08> Mode of arrival: ambulatory <NEEMA Bowens Last Filed: 01/06/24 14:08> Limitations: no limitations <NEEMA Bowens Last Filed: 01/06/24 14:08> History of Present Illness HPI Narrative: Patient 78-year-old gentleman who presents emergency department with chief complaint of difficulty urinating. The patient reports he has been urinating small amounts reports that he feels as though his bladder is full patient started taking azo reports he has seen Urology who recommended a catheterization. The patient states that he has had no fever reports that symptoms are not improved by anything <Calos Mars MD - Last Filed: 01/06/24 23:45> Related Data Home medications: Home Medications Medication Instructions Recorded Confirmed aspirin 81 mg tablet,delayed 81 mg PO Q48H 11/22/20 12/15/23 release (Adult Aspirin Regimen) docusate sodium 50 mg capsule 50 mg PO Q48H 10/06/22 12/15/23 timolol maleate 0.5 % eye drops 1 drp LEFT EYE DAILY 10/06/22 12/15/23 meloxicam 7.5 mg tablet See Rx Instructions .Route .COMPLEX 09/13/23 12/15/23 <Eleanor Cervantes PA-C - Last Filed: 01/06/24 14:08> Allergies/Adverse reactions: Allergies Allergy/AdvReac Type Severity Reaction Status Date / Time Sulfa (Sulfonamide Allergy Unknown HIVES Verified 12/15/23 13:24 Antibiotics) <Eleanor Cervantes PA-C - Last Filed: 01/06/24 14:08> Review of Systems Review of Systems: A 10 system review of systems was completed on the patient and is negative except for what is stated in the HPI. Nursing and ancillary documentation was reviewed. <Calos Mars MD - Last Filed: 01/06/24 23:45> PMFSH Past Medical History Medical History: Medical History Abdominal pain Abnormal MRI, lumbar spine Adenomatous polyp Ataxia BMI 28.0-28.9,adult Constipation Depressed Dizziness Elevated bilirubin Elevated glucose Falls frequently Leg pain Lumbar spondylosis Parkinsons disease Screening for prostate cancer Screening for thyroid disorder Shoulder pain Tinea unguium <Eleanor Cervantes PA-C - Last Filed: 01/06/24 14:08> Surgical History Surgical History: Surgical History H/O knee surgery History of knee replacement procedure of left knee <Eleanor Cervantes PA-C - Last Filed: 10/03/24 14:08> Family History Family History: Family History (Re
[2024-01-06 14:02] VITALS: BP 122/60; PULSE 77; RESP 16; TEMP 36.1; O2SAT 100
[2024-01-06 20:00] VITALS: BP 151/71; PULSE 77; RESP 16; O2SAT 100
[2024-01-06 20:11] LABS: Add Urine Microscopic? YES; Appearance Urine Cloudy (Clear); Bacteria Urine 4+ /hpf; Bilirubin Urine Negative (Negative); Blood Urine Negative (Negative); Color Urine Yellow (Yellow); Glucose Urine UA Negative (Negative); Ketones Urine Trace mg/dL (Negative); Leukocyte Esterase Ur 2+ LEU/UL (Negative); Nitrate Urine Negative (Negative); Non Pathogenic Casts 0-2; Protein Urine Negative (Negative); RBC Urine 0-2 /hpf (0-2); Squamous Epithelial Cell Urine None Seen /hpf (Few); WBC Urine 21-50 /hpf (0-3)
[2024-01-06 22:00] VITALS: BP 163/97; PULSE 71; RESP 17; TEMP 37.1; O2SAT 100
[2024-01-06 23:12] LABS: Basophils Percent Auto 0.4 % (0.2-1.2); Eosinophils Absolute Auto 0.2 K/mm3 (0-0.3); Eosinophils Percent Auto 2.4 % (0-4.4); Hematocrit 40.8 % (42.0-52.0); Hemoglobin 13.5 g/dL (14.0-18.0); Immature Granulocyte Absolute 0.02 K/mm3 (0.00-0.031); Immature Granulocyte Percent A 0.3 % (0-0.5); Lymphocytes Absolute Auto 2.44 K/mm3 (0.9-3.2); Lymphocytes Percent Auto 33.2 % (18.3-44.2); Mean Corpuscular HGB Conc 33.1 g/dl (32-36); Mean Corpuscular Hemoglobin 30.5 pg (26-34); Mean Corpuscular Volume 92.3 fl (80-100); Mean Platelet Volume 9.1 fl (7.4-10.4); Monocytes Absolute Auto 0.4 K/mm3 (0.1-0.6); Monocytes Percent Auto 5.4 % (2.6-8.5); Neutrophils Absolute Auto 4.3 K/mm3 (1.3-6.7); Neutrophils Percent Auto 58.3 % (45.5-73.1); Platelet Count Result 159 k/mm3 (150-375); Red Blood Count 4.42 M/mm3 (4.6-6.20); White Blood Count 7.4 K/mm3 (4.5-10.0)
[2024-01-06 23:22] LABS: Alanine Aminotransferase 7 U/L (6-50); Albumin Level 4.5 g/dL (3.5-5.1); Alkaline Phosphatase 129 U/L (38-126); Anion Gap 6 mmol/L (4-12); Aspartate Amino Transferase 17 U/L (17-59); Bilirubin,Total 1.4 mg/dL (0.2-1.3); Blood Urea Nitrogen 22 mg/dL (9-20); Calcium 9.4 mg/dL (8.4-10.2); Carbon Dioxide 27 mmol/L (22-30); Chloride 105 mmol/L (98-107); Estimated Glomerular Filt Rate > 60; Glucose 87 mg/dL (65-110); Potassium 3.9 mmol/L (3.4-5.0); Sodium 138 mmol/L (137-145)
[2024-01-07 00:03] VITALS: BP 166/76; PULSE 80; RESP 19; O2SAT 100
== END 2024-01-07 00:20 | disposition home or self-care (01) ==
PROVIDERS: Physician Assistant; Emergency Provider Emergency Medicine; PCP Family Medicine
DX: N39.0 Urinary tract infection, site not specified (principal); G20.A1 Parkinson's disease without dyskinesia, without mention of fluctuations; Z96.652 Presence of left artificial knee joint; Z87.891 Personal history of nicotine dependence; Z86.0101 Personal history of adenomatous and serrated colon polyps; Z79.82 Long term (current) use of aspirin; Z79.899 Other long term (current) drug therapy
CPT/HCPCS: 36415; 74176; 80053; 81001; 85025; 87086; 96365; 99284; J0696

== ENCOUNTER 2024-07-21 20:24 | Emergency (ER) | payer MEDICARE, SELFPAY ==
[2024-07-21] VITALS (8 sets, daily range): BP systolic 143–156; BP diastolic 77–86; PULSE 94–101; RESP 14–29; TEMP 36.2–36.7; O2SAT 95–100
--- NOTE | ~2024-07-21 | CT_ITS ---
Procedure: CT hip RT wo con Ordering provider: Mayito Beck MD History: . injury/pain . Comparison: January 05 05/25/2023 Technique: Thin slice axial CT of the No IV contrast was given. Sagittal and coronal reformatted imag es were also obtained and reviewed. Radiation reduction technique utilized.The dose-length product wa s 327.04 mGy-cm. Findings: BONES: No fracture or dislocation. JOINT SPACES: Normal . Right sacroiliitis. SOFT TISSUES: Normal. IMPRESSION: No acute fracture or dislocation. Reviewed, dictated and finalized at location A.
--- NOTE | ~2024-07-21 | XR_ITS ---
XR hip RT 2V w AP pelvis Ordering provider: Mayito Beck History: . injury, GLF 4 DAYS AGO . Comparison: None. FINDINGS: BONES: No acute fracture or dislocation. HIP JOINT SPACES: Normal. SACROILIAC JOINT SPACES/LUMBAR SPINE: The sacroiliac joint spaces are normal. Mild degenerative garcia es of the visualized lower lumbar spine. PUBIC SYMPHYSIS: Normal. SOFT TISSUES: Normal. IMPRESSION: No acute osseous abnormality pelvis and right hip. Reviewed, dictated and finalized at location A.
--- OUTSIDE RECORDS SUMMARY | 2024-07-21 20:27 | XMS_ITS ---
Author Organization [facility] Care Team Providers Care Rail Setter Name Role Phone Bubba Mari Unavailable Unavailable Papo Eisenberg Unavailable Unavai lable Allergies and adverse reactions Code CodeSystem Substance Reaction Severity StartDate Concern Status 676320692 SNOMED CT Sulfa Antibiotics Skin react ion - finding (code- 788897119, SNOMED CT) Severe 10/08/2022 active Care Team Name Role Address Phone Organization Dates Bubba Mari PCP [address] [place], [address], [place] (Office): : [facility] 10/08/2022 - 10/23/2022 Papo Eisenberg Attending Physician [address], [place], [address], [place] (Office): [facility] 10/08/2022 - 10/23/2022 Mental Status Section Date Assessment Total Score Description 10/23/2022 BIMS 13 cognitively int act CAM 0 No delirium ind icated PHQ-9 15 moderately zeneat re depression 10/14/2022 BIMS 13 cognitively int act CAM 0 No delirium ind icated PHQ-9 15 moderately zeenat re depression Problems Problem # Description Date of onset Resolved Date Code CodeSystem Concern Status 1 ALTERED MENTAL STATUS, UNSPECIFIED [address] active 2 ATAXIA, UNSPECIFIED [address] active 3 BALANITIS 3 10/09/[address] completed 4 BENIGN PROSTATIC HYPERPLASIA WITH LOWER URINARY TRACT SYMPTOMS [address] active 5 CEREBRAL ATHEROSCLEROSIS [address] active 6 CONSTIPATION, UNSPECIFIED [address] active 7 CYST OF KIDNEY, ACQUIRED [address] active 8 DIVERTICULOSIS OF INTESTINE, PART UNSPECIFIED, WITHOUT PERFORATION OR ABSCESS WITHOUT BLEEDING [address] active 9 HYPERLIPIDEMIA, UNSPECIFIED [address] active 10 MUSCLE WEAKNESS (GENERALIZED) [address] active 11 OTHER ABNORMALITIES OF GAIT AND MOBILITY [address] active 12 OTHER FATIGUE [address] active 13 PARKINSON'S DISEASE [address] active 14 PERSONAL HISTORY OF OTHER (HEALED) PHYSICAL INJURY AND TRAUMA [address] active 15 POLYP OF COLON [address] active 16 SPONDYLOSIS WITHOUT MYELOPATHY OR RADICULOPATHY, LUMBAR REGION [address] active 17 TRANSIENT CEREBRAL ISCHEMIC ATTACK, UNSPECIFIED [address] active 18 UNSPECIFIED PROTEIN-CALORIE MALNUTRITION [address] active 19 VERTEBROGENIC LOW BACK PAIN [address] active Reason for Referral No Reasons for Referral Entered Social History Social History Observation Description Start Date End Date Code Code System Current Smoking Status Tobacco smoking consumption unknown 558360726 SNOMED CT Sex Assigned At Male 1945 81849-7 [facility] Vital Signs Code Code System Vitals Name Values and Units Timing Information 31923-2 [facility] Pain Level Value=0.0 10/23/2022 9279-1 [facility] Respiratory Rate Value=20.0 Units=/m in 10/21/2022 8462-4 [facility] Blood Pressure-Diastolic Value=78 Un its=mmHg 10/21/2022 8480-6 [facility] Blood Pressure-Systolic Wuezm=714 Un its=mmHg 10/21/2022 8310-5 [facility] Body Temperature Value=97.8 Units= F 10/21/2022 8867-4 [facility] Heart rate Value=86.0 Units=/min 31536-8 [facility] O2 % BldC Oximetry Value=99.0 Units= % 10/21/2022 99325-6 [facility] Weight Gnqst=372.0 Units=Lbs 8302-2 [facility] Height Value=68.0 Units=Inches 10/08/2022
--- OUTSIDE RECORDS SUMMARY | 2024-07-21 20:28 | XMS_ITS ---
Author Organization [facility] Address [address] [facility] [address] [place], [place] [id number] Care Team Providers Care Tool Shaper Set Up Operator Name Role Phone ADAM CUMMINGS Unavailable [phone] Bubba Mari Unavailable Unavailable REASON FOR VISIT *General care Medications Medication SIG (Take, Route, Frequency, Duration) Notes Start Date End Date Status Linzess 72 MCG 1 capsule at least 3 0 minutes before the first meal of the day on an empty stomach Orally Once a day Active Carbidopa 25 MG 1 tablet Orally Thre e times a day Active Meloxicam 7.5 MG 1 tablet Orally Once a day Active tiZANidine HCl 2 MG 1 capsule at bedtime as needed Orally Once a day Active rOPINIRole HCl 5 MG 1 tablet Orally Thre e times a day Active Atorvastatin Calcium 40 MG 1 tablet Oral ly Once a day Active Timolol Maleate 0.5 % 1 drop into affect ed eye Ophthalmic Once a day Active Tamsulosin HCl 0.4 MG 1 capsule Orally O nce a day Active Cyclobenzaprine Comfort Pac Active Encounters Encounter Location Date Provider Diagnosis [facility] [address] [place], [place] [id number] 03/16/2024 ADAM CUMMINGS 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 ; Pain in right toe(s) M79.674 ; Pain in left toe(s) M79.675 and Unspecified atherosclerosis of [place] arteries of extremities, bilateral legs I70.203 Assessments Encounter Date Diagnosis (ICD Code) Assessment Notes Treatment Notes Treatment Clinical Notes Section Notes 03/16/2024 Fungal infection of nail (ICD-10 - B35.1) Nails 1-5 Bilateral were debrided extensively with nail nippers and emery board, reducing length and girth to pink healthy tissue with any subungual debris and necrotic tissue removed 03/16/2024 Pain in right toe(s) (ICD-10 - M79.674) 03/16/2024 Pain in left toe(s) (ICD-10 - M79.675) 03/16/2024 Unspecified atherosclerosis of [place] arteries of extremities, bilateral legs (ICD-10 - I70.203) Plan Of Treatment Treatment Notes Assessment Notes Fungal infection of nail Nails 1-5 Bilat eral were debrided extensively with nail nippers and emery board, reducing length and girth to pink healthy tissue with any subungual debris and necrotic tissue removed Next Appt Details Follow Up: 9 weeks, Reason: Provider Name:ADAM MATHUR, 08/24/2024 01:20:00 PM, [address], [address], [phone], Progress Notes * LOIS FAUSTOB:1945 ([age] yo M)Acc No.[id number]:03/16/2024 Patient: CATHERINE ARROYO Provider: Kanika Cummings DPM :1945 A ge:78 Y S ex:Male Date:03/16/2024 Address:[address] [place], [place] [address] Subjective: * Chief Complaints: * * General care * HPI: H PI: General care P atient presents to the office for at risk foot care. Patient states that their nails are thickened, elongated and painful. Patient states that it is aggravated by shoe gear. Onset is gradual. Patient denies being diabetic. Patient is taking prescription blood thinners. Date last seen by Dr. Mari was 12/2023. Initials sea. * ROS: G eneral / Constitutional: Patient denies c hange in appetite, fatigue, chills, fever.? C ardiovascular: Chest pain d enies. N eurologic: Loss of use of extremity d enies. * Medical History: * Surgical History: * Hospitalization/Major Diagno stic Procedure: * Social History: M igrated Social History: M igrated Social History: History of tobacco use : , Smoking Status : Never used tobacco. * Medications: T akingAtorvastatin Calcium 40 MG Tablet 1 tablet Orally Once a day Tamsulosin HCl 0.4 MG Capsule 1 capsule Orally Once a day Cyclobenzaprine Comfort Pac Timolol Maleate 0.5 % Solution 1 drop into affected eye Ophthalmic Once a day Carbidopa 25 MG Tablet 1 tablet Orally Three times a day Meloxicam 7.5 MG Tablet 1 tablet Orally Once a day tiZANidine HCl 2 MG Capsule 1 capsule at bedtime as needed Orally Once a day rOPINIRole HCl 5 MG Tablet 1 tablet Orally Three times a day Linzess 72 MCG Capsule 1 capsule at least 30 minutes before the first meal of the day on an empty stomach Orally Once a day Medication List reviewed and reconciled with the patientTaking Atorvastatin Calcium 40 MG Tablet 1 tablet Orally Once a day Taking Tamsulosin HCl 0.4 MG Capsule 1 capsule Orally Once a day Taking Cyclobenzaprine Comfort Pac Taking Timolol Maleate 0.5 % Solution 1 drop into affected eye Ophthalmic Once a day Taking Carbidopa 25 MG Tablet 1 tablet Orally Three times a day Taking Meloxicam 7.5 MG Tablet 1 tablet Orally Once a day Taking tiZANidine HCl 2 MG Capsule 1 capsule at bedtime as needed Orally Once a day Taking rOPINIRole HCl 5 MG Tablet 1 tablet Orally Three times a day Taking Linzess 72 MCG Capsule 1 capsule at least 30 minutes before the first meal of the day on an empty stomach Orally Once a day Medication List reviewed and reconciled with the patient Objective: * Vitals: * Examination: P hysical Examination: Gen: T he patient is awake, alert, well developed, well groomed and well nourished. They are in no apparent distress. . Musc: F oot structure is normal bilateral. Muscle strength is 5/5 to all joints bilaterally. There is no pain on palpation. . Derm: T here is absent hair growth on bilateral feet. There are pigmentary changes of bilateral foot. The skin color is red. The skin texture is thin and shiny. Distal cooling noted in bilateral feet. Nails are thick, discolored, and dystrophic with subungual debris. They are painful to palpation. . Neuro: G rossly intact to light touch bilateral . Vasc: P osterior tibialis pulse 0/4 bilaterally. Dorsalis pedis pulse 0/4 bilaterally. No edema noted. Capillary fill time > 3 seconds to all digits. . Assessment: * Assessment: 1. F ungal infection of nail - B35.1 (Primary) 2 . P ain in right toe(s) - M79.674 3 . P ain in left toe(s) - M79.675 4 . U nspecified atherosclerosis of [place] arteries of extremities, bilateral legs - I70.203 Plan: * Treatment: * Procedure Codes: * Follow Up: 9 weeks * Billing Information: * Visit Code: 29180 Office Visit, Est Pt., Level 3. * Procedure Codes: * Sign off status: Completed true * Provider: Kanika Cummings DPM Date: 05/17/2023 Generated for Tree acevedo/Norah/Jenna on: 0 07/21/2024 08:27 PM CDT History and Physical Notes * HPI (History of Present Illness) Category Sub-Category Detail Notes Category Not es HPI General care Patient presents to the office for at risk foot care. Patient states that their nails are thickened, elongated and painful. Patient states that it is aggravated by shoe gear. Onset is gradual. Patient denies being diabetic. Patient is taking prescription blood thinners. Date last seen by Dr. Mari was 12/2023. Initials sea Examination Category Sub-Category Detail Notes Category Not es Physical Examination Gen: The patient is awake, alert, well developed, well groomed and well nourished. They are in no apparent distress. Vasc: Posterior tibialis p ulse 0/4 bilaterally. Dorsalis pedis pulse 0/4 bilaterally. No edema noted. Capillary fill time > 3 seconds to all digits. Neuro: Grossly intact to li ght touch bilateral Musc: Foot structure is no rmal bilateral. Muscle strength is 5/5 to all joints bilaterally. There is no pain on palpation. Derm: There is absent hair growth on bilateral feet. There are pigmentary changes of bilateral foot. The skin color is red. The skin texture is thin and shiny. Distal cooling noted in bilateral feet. Nails are thick, discolored, and dystrophic with subungual debris. They are painful to palpation.
--- OUTSIDE RECORDS SUMMARY | 2024-07-21 20:28 | XMS_ITS ---
Author Organization [facility] Address [address] [facility] [address] [place], [place] [id number] Care Team Providers Care Director Of Market Intelligence Name Role Phone ADAM CUMMINGS Unavailable [phone] Bubba Mari Unavailable Unavailable REASON FOR VISIT *General care Medications Medication SIG (Take, Route, Frequency, Duration) Notes Start Date End Date Status rOPINIRole HCl 5 MG 1 tablet Orally Thre e times a day Unknown Linzess 72 MCG 1 capsule at least 3 0 minutes before the first meal of the day on an empty stomach Orally Once a day Unknown Carbidopa 25 MG 1 tablet Orally Thre e times a day Unknown Meloxicam 7.5 MG 1 tablet Orally Once a day Unknown tiZANidine HCl 2 MG 1 capsule at bedtime as needed Orally Once a day Unknown Timolol Maleate 0.5 % 1 drop into affect ed eye Ophthalmic Once a day Unknown Atorvastatin Calcium 40 MG 1 tablet Oral ly Once a day Unknown Tamsulosin HCl 0.4 MG 1 capsule Orally O nce a day Unknown Cyclobenzaprine Comfort Pac Unknown Encounters Encounter Location Date Provider Diagnosis [facility] [place] [address] [place], [place] [id number] 01/13/2024 ADAM CUMMINGS 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 ; Pain in right toe(s) M79.674 ; Pain in left toe(s) M79.675 and Unspecified atherosclerosis of [place] arteries of extremities, bilateral legs I70.203 Assessments Encounter Date Diagnosis (ICD Code) Assessment Notes Treatment Notes Treatment Clinical Notes Section Notes 01/13/2024 Fungal infection of nail (ICD-10 - B35.1) Nails 1-5 Bilateral were debrided extensively with nail nippers and emery board, reducing length and girth to pink healthy tissue with any subungual debris and necrotic tissue removed 01/13/2024 Pain in right toe(s) (ICD-10 - M79.674) 01/13/2024 Pain in left toe(s) (ICD-10 - M79.675) 01/13/2024 Unspecified atherosclerosis of [place] arteries of extremities, bilateral legs (ICD-10 - [...] MATHUR, 08/24/2024 01:20:00 PM, [address], [address], [id number], Progress Notes * LOIS FAUSTOB:1945 ([age] yo M)Acc No.[id number]:01/13/2024 Patient: CATHERINE ARROYO Provider: Kanika Cummings DPM :1945 A ge:78 Y S ex:Male Date:01/13/2024 Address:[address] [place], [place] [id number] Subjective: * Chief Complaints: * * General care * HPI: H PI: General care P atient presents to the office for at risk foot care. Patient states that their nails are thickened, elongated and painful. Patient states that it is aggravated by shoe gear. Onset is gradual. Patient denies being diabetic. Patient denies taking prescription blood thinners but does take a daily aspirin. Date last seen by Dr. Mari was 01/2024. Initials sea. * ROS: G eneral / [...] Status : Never used tobacco. * Medications: U nknownAtorvastatin Calcium 40 MG Tablet 1 tablet Orally [...] Medication List reviewed and reconciled with the patientUnknown Atorvastatin Calcium 40 MG Tablet 1 tablet Orally Once a day Unknown Tamsulosin HCl 0.4 MG Capsule 1 capsule Orally Once a day Unknown Cyclobenzaprine Comfort Pac Unknown Timolol Maleate 0.5 % Solution 1 drop into affected eye Ophthalmic Once a day Unknown Carbidopa 25 MG Tablet 1 tablet Orally Three times a day Unknown Meloxicam 7.5 MG Tablet 1 tablet Orally Once a day Unknown tiZANidine HCl 2 MG Capsule 1 capsule at bedtime as needed Orally Once a day Unknown rOPINIRole HCl 5 MG Tablet 1 tablet Orally Three times a day Unknown Linzess 72 MCG Capsule 1 capsule at [...] M79.675 4 . U nspecified atherosclerosis of [place] arteries of extremities, bilateral legs - I70.203 Plan: * Treatment: * Procedure Codes: * Follow Up: 9 weeks * Billing Information: * Visit Code: 59069 Office Visit, Est Pt., Level 3. * Procedure Codes: * Sign off status: Completed true * Provider: Kanika Cummings DPM Date: Generated for Tree acevedo/Norah/Bereitting on: 0 07/21/2024 08:28 PM CDT History and Physical Notes * HPI (History of Present Illness) Category Sub-Category Detail Notes Category Not es HPI General care Patient presents to the office for at risk foot care. Patient states that their nails are thickened, elongated and painful. Patient states that it is aggravated by shoe gear. Onset is gradual. Patient denies being diabetic. Patient denies taking prescription blood thinners but does take a daily aspirin. Date last seen by Dr. Mari was 01/2024. Initials sea Examination Category Sub-Category Detail Notes [...]
--- OUTSIDE RECORDS SUMMARY | 2024-07-21 20:28 | XMS_ITS ---
Author Organization [facility] Address [address] [facility] [address] [place], [place] [id number] Care Team Providers Care Operating Systems Specialist Name Role Phone ADAM CUMMINGS Unavailable [phone] Bubba Mari Unavailable Unavailable Allergies No Known Allergies REASON FOR VISIT *General care Medications Medication SIG (Take, Route, Frequency, Duration) Notes Start Date End Date Status Meloxicam 7.5 MG 1 tablet Orally Once a day Active tiZANidine HCl 2 MG 1 capsule at bedtime as needed Orally Once a day Active rOPINIRole HCl 5 MG 1 tablet Orally Thre e times a day Active Timolol Maleate 0.5 % 1 drop into affect ed eye Ophthalmic Once a day Active Carbidopa 25 MG 1 tablet Orally Thre e times a day Active Atorvastatin Calcium 40 MG 1 tablet Oral ly Once a day Active Linzess 72 MCG 1 capsule at least 3 0 minutes before the first meal of the day on an empty stomach Orally Once a day Active Tamsulosin HCl 0.4 MG 1 capsule Orally O nce a day Active Cyclobenzaprine Comfort Pac Active Vital Signs Height 68.00 in 06/22/2024 Weight 200 lbs 06/22/2024 BMI 30.41 kg/m2 06/22/2024 Height-cm 172.72 cm 06/22/2024 Weight-kg 90.72 kg 06/22/2024 Encounters Encounter Location Date Provider Diagnosis [facility] [address] [place], [place] [id number] 06/22/2024 ADAM CUMMINGS 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 ; Pain in right toe(s) M79.674 ; Pain in left toe(s) M79.675 and Unspecified atherosclerosis of [place] arteries of extremities, bilateral legs I70.203 Assessments Encounter Date Diagnosis (ICD Code) Assessment Notes Treatment Notes Treatment Clinical Notes Section Notes 06/22/2024 Fungal infection of nail (ICD-10 - B35.1) Nails 1-5 Bilateral were debrided extensively with nail nippers and emery board, reducing length and girth to pink healthy tissue with any subungual debris and necrotic tissue removed 06/22/2024 Pain in right toe(s) (ICD-10 - M79.674) 06/22/2024 Pain in left toe(s) (ICD-10 - M79.675) 06/22/2024 Unspecified atherosclerosis of [place] arteries of extremities, bilateral legs (ICD-10 - [...] MATHUR, 08/24/2024 01:20:00 PM, [address], [address], [id number], Progress Notes * LOIS FAUSTOB:1945 ([age] yo M)Acc No.[id number]:06/22/2024 Patient: CATHERINE ARROYO Provider: Kanika Cummings DPM :1945 A ge:78 Y S ex:Male Date:06/22/2024 Address:[address] [place], [place] [id number] Subjective: * Chief Complaints: * 1 . *General care. * HPI: H PI: General care P atient presents to the office for at risk foot care. Patient states that their nails are thickened, elongated and painful. Patient states that it is aggravated by shoe gear. Onset is gradual. Patient denies being diabetic. Patient denies taking prescription blood thinners but does take a daily aspirin. Date last seen by Dr. Mari was 03/2024. Initials sea. * ROS: G eneral / Constitutional: Patient denies c hange in appetite, fatigue, chills, fever.? C ardiovascular: Chest pain d enies. N eurologic: Loss of use of extremity d enies. * Medical History: * Social History: M igrated Social History: M igrated Social History: History of tobacco use : , Smoking Status : Never used tobacco. * Medications: T aking Atorvastatin Calcium 40 MG Tablet 1 tablet Orally Once a day , Taking Tamsulosin HCl 0.4 MG Capsule 1 capsule Orally Once a day , Taking Cyclobenzaprine Comfort Pac , Taking Timolol Maleate 0.5 % Solution 1 drop into affected eye Ophthalmic Once a day , Taking Carbidopa 25 MG Tablet 1 tablet Orally Three times a day , Taking Meloxicam 7.5 MG Tablet 1 tablet Orally Once a day , Taking tiZANidine HCl 2 MG Capsule 1 capsule at bedtime as needed Orally Once a day , Taking rOPINIRole HCl 5 MG Tablet 1 tablet Orally Three times a day , Taking Linzess 72 MCG Capsule 1 capsule at least 30 minutes before the first meal of the day on an empty stomach Orally Once a day * Allergies: N .K.D.A. Objective: * Vitals: W t: 200 lbs, Wt-k.72 kg, Ht: 68.00 in, Ht-cm: 172.72 cm, BMI: 30.41 Index, Body Surface Area: 2.08. * Examination: P hysical Examination: Gen: T [...] M79.675 4 . U nspecified atherosclerosis of [place] arteries of extremities, bilateral legs - I70.203 Plan: * Treatment: * Immunizations: Immunization record has been reviewed and updated. * Follow Up: 9 weeks * Billing Information: * Visit Code: 60874 Office Visit, Est Pt., Level 3. * Procedure Codes: * Electronic signature of ADAM CUMMINGS DPM on 07/21/2024 at 08:27 PM CDT Sign off status: Pending * Provider: Kanika Cummings DPM Date: 0 06/22/2024 Generated for Tree Lowery/Jenna on: 0 07/21/2024 08:27 PM CDT History [...] Date last seen by Dr. Mari was 03/2024. Initials sea Examination Category Sub-Category Detail Notes [...]
--- OUTSIDE RECORDS SUMMARY | 2024-07-21 20:28 | XMS_ITS ---
Author Name [facility] Organization [facility] Address [address] [place] [address] Care Team Providers Care Vaccine Manager Name Role Phone MANOLO STOLL Primary Care Provider Unavailab le Insurance Providers: All historical and current Section Date Range: From patient's date of to the date document was created. This section includes the names of all active insurance providers for the patient. Insurance Provider Type of Coverage Plan Name Start of Policy Coverage End of Policy Coverage Group Number Member ID Insurance Provider's Telephone Number Policy Stover's Name Patient's Relationship to Policy Stover [employer] [facility] (WNR) MEDICARE ADVANTAGE [facility] (WNR) Apr 05, 2018 [id number] JIA FAUST PATIENT Selected Encounter This section includes the information on record at [place] for the Encounter. Date/Time Encounter Type Encounter Description Reason Provider Source May 08, 2024 11:40 AM OFFICE O/P EST LOW 20 MIN UROLOGY CLINIC ICD-10-CM G20.C Parkinsonism, unspecified ALEX KEARNS Encounter Template Text not used by [facility] Assessments - Encounter Diagnoses This section includes the primary and secondary diagnoses documented for the Encounter. Date/Time Primary/Secondary Diagnosis Diagnosis Name Provider Source May 08, 2024 12:32 PM PRIMARY Parkinsonism, unspecified POLLO BOLAÑOS [facility] May 08, 2024 12:32 PM SECONDARY Urgency of urination POLLO BOLAÑOS [facility] Plan of Treatment: Future Appointments (+ 6 months) and Future Tests (+/- 45 days) The Plan of Treatment section includes future care activities for the patient [facility] [place] [facility] This section includes future appointments and future orders which are active, pending or scheduled. Future Appointments This section includes appointments that were scheduled to occur 6 months from the date of the Encounter, up to a maximum of 20 appointments. The data comes from all [facility]. Appointment Date/Time Appointment Type Appointme nt Facility Name May 15, 2024 12:30 PM AMBULATORY - MEDICINE [facility] Jun 12, 2024 01:00 PM AMBULATORY - SURGERY [facility] Active, Pending, and Scheduled Orders This section includes a listing of several types of active, pending, and scheduled orders, including clinic medications orders, diagnostic test orders, procedure orders and consult orders; where the start date of the order is 45 days before the date of the Encounter or 45 days after the date of the Encounter. The data comes from all [facility]. Test Date/Time Test Type Test Details Facility Name Apr 09, 2024 12:00 AM Laboratory - Chemi stry Order BASIC METABOLIC PANEL GREEN LI/HEP BLD/PLAS PLASMA SP [facility] Vital Signs: All taken on the encounter date This section contains inpatient and outpatient Vital Signs collected on the date of the Encounter. Date/Time Temperature Pulse Blood Pressure Respiratory Rate SP02 Pain Height Weight Body Mass Index Source May 08, 2024 11:44 AM 98.4 89 139/74 18 93 [facility] Advance Directives: All historical and current Section Date Range: From patient's date of to the date document was created. This section includes ALL of a patient's completed or amended [place] Advance and Rescinded Directives. The entries below indicate that a directive exists for the patient, but an actual copy is not included with this document. The data comes from all [facility]. Date Advance Directives Provider Source Feb 08, 2023 ADVANCE DIRECTIVE WEBBDMITRIY SHIN [facility] Jun 30, 2007 ADVANCE DIRECTIVE SANTIAGO WALLER Tamar [facility] Radiology Reports: +/- 30 days of the encounter Radiology Reports For cases when an order for radiology services may have been completed prior to the date of the Encounter, the report list includes the Radiology Reports that were completed up to 30 days before dateof the Encounter. For cases when an order for radiology services may have been completed after the date of the Encounter, the report list also includes the Radiology Reports that were completed up to30 days after date of the Encounter. The data comes from all [place] treatment facilities. Date/Time Radiology Report Provider Source May 01, 2024 11:38 AM US RENAL COMPLETE: GOVINDCATHERINE Katy SHIPMAN [id number] -[id number] M Exm Date: MAY 01, 2024@11:38 Req Phys: MANOLO STOLL Loc: [facility] PACT 7 PCP (Req' Img Loc: [facility] Service: [address] [address] (Case [id number] COMPLETE) US RENAL COMPLETE (US Detailed) CPT:60973 Reason for Study: 78yo male with BPH with LUTS, needing US kidney/bladder Clinical History: Report Status: Verified Date Reported: MAY 01, 2024 Date Verified: MAY 01, 2024 Wedding Photographer E-Sig:/ES/ORLANDO VILA Report: Report number: [id number] EXAMINATION: Renal sonogram HISTORY: 78yo male with BPH with LUTS, needing US kidney/bladder Comparison: CT abdomen 08/22/2009 FINDINGS: The right kidney measures 9.5 x 4.7 x 5.9 cm. The left kidney measures 10.5 x 3.3 x 5.3 cm. The cortical echogenicity of both kidneys is normal . There is no hydronephrosis in either kidney. There is a simple cyst in the inferior pole of the right kidney measuring up to 2.2 cm. No mass or calculus is identified. The bladder is decompressed without gross abnormality. Incidental note of a simple appearing cyst in the right lobe of the liver measuring up to 1.4 cm. Impression: 1. No hydronephrosis or evidence of a solid renal mass. Dictated by Minerva Mitchell M.D. I, Orlando Vila, have reviewed the images and report and concur with these findings. Primary Interpreting Staff: ORLANDO VILA MD (Wedding Photographer) Primary Interpreting Resident: MINERVA MITCHELL, Resident /ORLANDO GALLARDO [facility] Encounter Notes: All associated encounter notes This section contains the clinical notes associated to the Encounter. Date/Time Encounter Note(s) Provider Source May 08, 2024 11:46 AM UROLOGY CONSULT: LOCAL TITLE: UROLOGY CONSULT ST STANDARD TITLE: UROLOGY CONSULT DATE OF NOTE: MAY 08, 2024@11:46 ENTRY DATE: MAY 08, 2024@11:46:34 AUTHOR: CECILIO BOLAÑOS COSIGNER: ALEX KEARNS URGENCY: STATUS: COMPLETED CHIEF COMPLAINT, HPI, EXAM & DATA CC: LUTS, initial visit HPI: 78 yo M with Parkinsons being referred for LUTS - endorses: incomplete empyting, hesitancy, stranguria, weak stream, post void dribble, intermittent, frequency Q2H, urgency, UUI occasional, nocturia 4-5/night, - denies: dysuria, hematuria, ANGELITA - had UTI 5 months ago, only one - on flomax per records, but patient is unsure if he is taking this - 05/01/24 RBUS without hydro. bladder wall mildly uniformally thickened, not very distended - no imaging of prosate - does not have help at home Bladder scan 216 mL. patient last voided >90 minutes ago. Did not feel like he needed to void. ROS/PMH Denies F/C/N/V/CP/SOB Remainder of PMH listed below and reviewed? Yes TARGETED PHYSICAL EXAM: Gen: NAD HEENT: NC/AT Resp: NLB Abd: s/nt/nd, no rebound or guarding Back: No CVAT bilaterally Ext: WWP MSK: MAEW Neuro: non-focal Skin: warm and dry : deferred PVR (by scan): last voided 10:30 (>90 minutes ago) bladder scan 216 mL CREATININE:No CREATININE EO data found PSA: No PSA EO data found IMAGING: as per above ASSESSM ENT AND PLAN --- 78 yo M with hx with urge predominant LUTS with either storage vesus obstructive pathology iso Parkinsons. Low PVR. - tamsulosin will increase to 0.8mg - will set up in cysto clinic to evaluate prostate and repeat PVR. If not visually obstructive and has low PVR (today's is fine given did not void recently), then can start myrbetriq. If not visually obstructive and has high PVR, will need UDS. If visutally obstructive can discuss finasteride versus outlet procedure. FOLLOW-UP: - next avail cysto clinic (MORE INFORMATION) -- * LABS------ PSA Trend: No PSA (LAST 10 5Y) EO data found BMP: No BASIC METABOLIC PANEL (BMP) EO data found CBC: No CBC EO data found UA: URINE COLOR Yellow 04/06/2024 12:25 APPEARANCE Clear 04/06/2024 12:25 U.PH 6.0 04/06/2024 12:25 U.BILIRUBIN Negative mg/dL 04/06/2024 12:25 U.NITRITE Negative mg/dL 04/06/2024 12:25 PAST MEDICAL, SOCIAL, FAMILY HX AND ROS 1) Low back pain 2) Impotence of Psychogenic Origin 3) HLD - Hyperlipidaemia 4) Gastroesophageal reflux disease 5) Chest Pain 6) Abdominal Pain of the Left Upper Quadrant (ICD-9-CM 789.02) 7) Colonic Polyps (ICD-9-CM 211.3) 8) Impaired FASTING Glucose 9) Parkinsonism 10) DD - Diverticular disease 11) Debility 12) Transient ischemic attack 13) Benign prostatic hyperplasia MEDICATIONS: Active Outpatient Medications (including Supplies): Active Non-VA Medications Status = 1) Non-VA AMITRIPTYLINE HCL 10MG TAB 10MG BY MOUTH AT BEDTIME ACTIVE 2) Non-VA AMITRIPTYLINE HCL 50MG TAB 50MG BY MOUTH AT BEDTIME ACTIVE Indication: FOR insomnia 3) Non-VA ASPIRIN 81MG EC TAB 81MG BY MOUTH ONCE A DAY ACTIVE 4) Non-VA ATORVASTATIN CALCIUM 80MG TAB 40MG BY MOUTH EVERY ACTIVE EVENING Indication: FOR HIGH CHOLESTEROL 5) Non-VA CARBIDOPA 10/LEVODOPA 100MG TAB 2 TABLETS BY MOUTH ACTIVE THREE TIMES A DAY 6) Non-VA CARBIDOPA 25/LEVODOPA 250MG TAB 1 TABLET BY MOUTH ACTIVE TWICE A DAY Indication: FOR PARKINSON DISEASE 7) Non-VA MELOXICAM 7.5MG TAB 7.5MG BY MOUTH ONCE A DAY ACTIVE Indication: FOR OSTEOARTHRITIS 8) Non-VA OMEPRAZOLE 40MG EC CAP 40MG BY MOUTH EVERY MORNING ACTIVE BEFORE A MEAL Indication: FOR GASTROESOPHAGEAL REFLUX DISEASE 9) Non-VA ROPINIROLE HCL 1MG TAB 1MG BY MOUTH ONCE A DAY ACTIVE Indication: FOR PARKINSON DISEASE 10) Non-VA TAMSULOSIN HCL 0.4MG CAP 0.4MG BY MOUTH EVERY EVENING ACTIVE Indication: FOR BENIGN PROSTATIC HYPERPLASIA 11) Non-VA TIZANIDINE HCL 4MG TAB 2MG BY MOUTH AT BEDTIME ACTIVE Indication: FOR SPASTICITY Allergies: SIMVASTATIN, SULFA DRUGS /es/ CECILIO BOLAÑOS MD UROLOGY RESIDENT Signed: 05/08/2024 12:32 /es/ ALEX KEARNS MD Staff Physician, Urology Cosigned: 05/08/2024 21:52 CECILIO BOLAÑOS [facility]
--- OUTSIDE RECORDS SUMMARY | 2024-07-21 20:28 | XMS_ITS | Continuity of Care Document ---
Author Name [facility] Organization [facility] Care Team Providers Care Project Development Leader Name Role Phone [facility] Unavailable Unavailable Problems Combined list of problems from Department of Defense and [facility] facilities. It does not include entries that were removed or entered in error. Problem Status Onset Date Problem Type Date of Resolution Comments Source Abdominal Pain of the Left Upper Quadrant (ICD-9-CM 789.02) Active Condition [facility] Benign prostatic hyperplasia Active Condition [facility] Chest Pain Active Condition [facility] Colonic Polyps (ICD-9-CM 211.3) Active Condition [facility] DD - Diverticular disease Active Condition [facility] Debility Active Condition [facility] Gastroesophageal reflux disease Active Condition [facility] HLD - Hyperlipidaemia Active Condition [facility] Impaired FASTING Glucose Active Condition [facility] Impotence of Psychogenic Origin Active Condition [facility] Low back pain Active Condition [facility] Parkinsonism Active Condition [facility] Transient ischemic attack Active Condition Feb 17, 2023 Entered By: MACKENZIE LEON Comment: 10/2022 [facility] Diagnosis: ICD-10-CM G20.C Parkinsonism, unspecified Active Diagnosis [facility] Diagnosis: ICD-10-CM N40.1 Benign prostatic hyperplasia with lower urinary tract symp Active Diagnosis [facility] Diagnosis: ICD-10-CM G45.9 Transient cerebral ischemic attack, unspecified Active Diagnosis [facility] Diagnosis: ICD-10-CM Z74.2 Need for assist at home & no house memb able to render care Active Diagnosis [facility] Diagnosis: ICD-10-CM Z74.09 Other reduced mobility Active Diagnosis [facility] Diagnosis: ICD-10-CM Z13.5 Encounter for screening for eye and ear disorders Active Diagnosis [facility] Diagnosis: ICD-10-CM R54 Age-related physical debility Active Diagnosis [facility] Diagnosis: ICD-10-CM M54.50 Low back pain, unspecified Active Diagnosis [facility] Medications Combined list of outpatient medications from Department of Defense and Veterans Affairs facilities.Medications provided include 1) outpatient medications from the last 15 months, and 2) patient-reported medications. Medication Details Route Status Patient Instructions Prescription Expires Prescription Number Last Dispense Date Ordering Provider Order Date Order Qty Source AMITRIPTYLI NE HCL 10MG TAB TAKE ONE TABLET BY MOUTH AT BEDTIME ORAL ACTIVE ALBERT BOOTH I 2013 [facility] AMITRIPTYLI NE HCL 50MG TAB TAKE ONE TABLET BY MOUTH AT BEDTIME ORAL ACTIVE DEPJACQUESLO,S UZABRUCEE 2023 [facility] ASPIRIN 81MG TAB,EC TAKE ONE TABLET BY MOUTH ONCE A DAY ORAL ACTIVE GAUTAM LEON 2004 [facility] ATORVASTATI N CA 80MG TAB TAKE ONE-HALF TABLET BY MOUTH EVERY EVENING ORAL ACTIVE DEPAULO,S UZANNE 2023 [facility] CARBIDOPA 10MG/LEVODO PA 100MG TAB TAKE 3 TABLETS BY MOUTH THREE TIMES A DAY FOR PARKINSO N DISEASE TAKE WITH FOOD ORAL ACTIVE 06/08/2025 [id number] DEPAULO,S UZANNE 2024 810 [facility] CARBIDOPA 10MG/LEVODO PA 100MG TAB TAKE TWO TABLETS BY MOUTH THREE TIMES A DAY ORAL ACTIVE ALBERT BOOTH I 2013 [facility] CARBIDOPA 25MG/LEVODO PA 100MG TAB,SA TAKE 1 TABLET BY MOUTH FOUR TIMES A DAY FOR PARKINSO N DISEASE DO NOT CRUSH OR CHEW ORAL ACTIVE 06/08/2025 [id number] 5 DEPAULO,S UZANNE 2024 360 [facility] CARBIDOPA 25MG/LEVODO PA 250MG TAB TAKE ONE TABLET BY MOUTH TWICE A DAY ORAL ACTIVE DEPAULO,S UZANNE 2023 [facility] HYDROPHILIC (EQV EUCERIN) CREAM,TOP APPLY LIGHTLY TO AFFECTED AREA(S) ONCE A DAY FOR DRY SKIN (EXTERNA L USE ONLY) TOPICA L ACTIVE 05/16/2025 [id number] 5 DEPAULO,S UZANNE 2024 454 [facility] MELOXICAM 7.5MG TAB TAKE ONE TABLET BY MOUTH ONCE A DAY ORAL ACTIVE DEPAULO,S UZANNE 2023 [facility] OMEPRAZOLE 40MG CAP,EC TAKE 1 CAPSULE BY MOUTH EVERY MORNING BEFORE A MEAL ORAL ACTIVE DEPAULO,S UZANNE 2023 [facility] OXYBUTYNIN CL 5MG TAB TAKE ONE TABLET BY MOUTH THREE TIMES A DAY FOR OVERACTI VE BLADDER ORAL ACTIVE 09/13/2024 [id number] Kanika TREJO A 2024 270 [facility] ROPINIROLE HCL 1MG TAB TAKE ONE TABLET BY MOUTH ONCE A DAY ORAL ACTIVE DEPAULO,S UZANNE 2023 [facility] TAMSULOSIN HCL 0.4MG CAP TAKE TWO CAPSULES BY MOUTH EVERY EVENING APPROXIM ATELY 30 MINUTES AFTER THE SAME MEAL EACH DAY ORAL ACTIVE 05/09/2025 [id number] 5 CECILIO BOLAÑOS 2024 180 [facility] TIZANIDINE HCL 4MG TAB TAKE ONE-HALF TABLET BY MOUTH AT BEDTIME ORAL ACTIVE DEPAULO,S UZANNE 2023 [facility] Allergies, Adverse Reactions, Alerts Combined list of allergies from Department of Defense and Veterans Affairs facilities. It does not include entries that were removed or entered in error. Substance Category Reaction Severity Reaction type Status Date Reported Comments Source SIMVASTATIN Propensity to adverse reactions to drug (finding) MYALGIA, PAIN,JOINT active 5 [facility] SULFA DRUGS Propensity to adverse reactions to drug (finding) Urticaria active 3 [facility] Immunizations Combined list of available immunizations from the Department of Defense and Veterans Affairs facilities. Immunization Series Date Given Administered By Site Reaction Lot Number CVX Code Drug Sales Force Administrator Status Comments Source TDAP 2013 115 complet ed Left Deltoid [facility] INFLUENZA, UNSPECIFIED FORMULATION 2002 88 complet ed [facility] TD(ADULT) UNSPECIFIED FORMULATION 2001 139 complet ed [facility] Results Combined list of recent chemistry, hematology and other laboratory results from Department of Defense and Veterans Affairs, ranging from 15 months to all on record, depending upon the facility. Order Name Results Value Reference Range Date Interpretation Specimen Comments Source POC UA (STL-PB-M A) PROTEIN [MASS/VOLU ME] IN URINE BY TEST STRIP Negative mg/dL 06/12 Specimen Type: URINE Comment: Test Performed by: [employer] Meter #: [id number] Ordering Provider: PENELOPE MORALES Report Released Date/Time: Jun 12, 2024 12:56 PM Reporting Lab: [address] [address] Performing Lab: [address] [address] [facility] POC UA (STL-PB-M A) HEMOGLOBIN [MASS/VOLU ME] IN URINE BY TEST STRIP Negative 06/12 Specimen Type: URINE Comment: Test Performed by: [employer] Meter #: [id number] Ordering Provider: PENELOPE MORALES Report Released Date/Time: Jun 12, 2024 12:56 PM Reporting Lab: [address] [address] Performing Lab: [address] [address] [facility] POC UA (STL-PB-M A) LEUKOCYTES [PRESENCE] IN URINE Negative 06/12 Specimen Type: URINE Comment: Test Performed by: [facility] Meter #: [id number] Ordering Provider: PENELOPE MORALES Report Released Date/Time: Jun 12, 2024 12:56 PM Reporting Lab: [address] [address] Performing Lab: [address] [address] [facility] POC UA (STL-PB-M A) COLOR OF URINE Yellow 06/12 Specimen Type: URINE Comment: Test Performed by: [id number] Meter #: [id number] Ordering Provider: PENELOPE MORALES Report Released Date/Time: Jun 12, 2024 12:56 PM Reporting Lab: [address] [address] Performing Lab: [place] [address] [facility] [address] [facility] POC UA (STL-PB-M A) SPECIFIC GRAVITY OF URINE 1.020 1.005 - 1.030 06/12 Specimen Type: URINE Comment: Test Performed by: [id number] Meter #: [id number] Ordering Provider: PENELOPE MORALES Report Released Date/Time: Jun 12, 2024 12:56 PM Reporting Lab: [address] [address] Performing Lab: [place] [address] [facility] [address] [facility] POC UA (STL-PB-M A) UROBILINOG EN [UNITS/VOL UME] IN URINE 0.2 {John 'U}/dL 0.1 - 1.0 06/12 Specimen Type: URINE Comment: Test Performed by: [id number] Meter #: [id number] Ordering Provider: PENELOPE MORALES Report Released Date/Time: Jun 12, 2024 12:56 PM Reporting Lab: [place] [address] [facility] [address] Performing Lab: [place] [address] [facility] [address] [facility] POC UA (STL-PB-M A) BILIRUBIN. TOTAL [PRESENCE] IN URINE Negative 06/12 Specimen Type: URINE Comment: Test Performed by: [id number] Meter #: [id number] Ordering Provider: PENELOPE MORALES Report Released Date/Time: Jun 12, 2024 12:56 PM Reporting Lab: [place] [address] [address] [address] Performing Lab: [place] [address] [facility] [address] [facility] POC UA (STL-PB-M A) KETONES [MASS/VOLU ME] IN URINE BY TEST STRIP Negative mg/dL 06/12 Specimen Type: URINE Comment: Test Performed by: [id number] Meter #: [id number] Ordering Provider: PENELOPE MORALES Report Released Date/Time: Jun 12, 2024 12:56 PM Reporting Lab: [place] [address] [address] [address] Performing Lab: [place] [address] [facility] [address] [facility] POC UA (STL-PB-M A) GLUCOSE [MASS/VOLU ME] IN URINE BY TEST STRIP Negative mg/dL 06/12 Specimen Type: URINE Comment: Test Performed by: [id number] Meter #: [id number] Ordering Provider: PENELOPE MORALES Report Released Date/Time: Jun 12, 2024 12:56 PM Reporting Lab: [place] [address] [facility] [address] Performing Lab: [place] [address] [address] [address] [facility] POC UA (STL-PB-M A) PH OF URINE 6.0 5.0 - 8.0 06/12 Specimen Type: URINE Comment: Test Performed by: [id number] Meter #: [id number] Ordering Provider: PENELOPE MORALES Report Released Date/Time: Jun 12, 2024 12:56 PM Reporting Lab: [place] [address] [address] [address] Performing Lab: [place] [address] [facility] [address] [facility] POC UA (STL-PB-M A) NITRITE [PRESENCE] IN URINE BY TEST STRIP Negative 06/12 Specimen Type: URINE Comment: Test Performed by: [id number] Meter #: [id number] Ordering Provider: PENELOPE MORALES Report Released Date/Time: Jun 12, 2024 12:56 PM Reporting Lab: [place] [address] [facility] [address] Performing Lab: [place] [address] [facility] [address] [facility] POC UA (STL-PB-M A) CLARITY OF URINE Clear 06/12 Specimen Type: URINE Comment: Test Performed by: [id number] Meter #: [id number] Ordering Provider: PENELOPE MORALES Report Released Date/Time: Jun 12, 2024 12:56 PM Reporting Lab: [place] [address] [facility] [address] Performing Lab: [place] [address] [facility] [address] [facility] URINALYSI S (STL-PB) COLOR OF URINE Yellow 04/06 Specimen Type: URINE No comment entered. Ordering Provider: JUANA STOLL Report Released Date/Time: Apr 04, 2024 01:59 PM Reporting Lab: [place] [address] [facility] [address] Performing Lab: [place] [address] [facility] [address] [facility] URINALYSI S (STL-PB) BILIRUBIN. TOTAL [PRESENCE] IN URINE BY TEST STRIP Negative mg/dL 04/06 Specimen Type: URINE No comment entered. Ordering Provider: JUANA STOLL Report Released Date/Time: Apr 04, 2024 01:59 PM Reporting Lab: [facility] [address] [facility] [address] Performing Lab: [facility] [address] [facility] [address] [facility] URINALYSI S (STL-PB) PH OF URINE BY TEST STRIP 6.0 5.0 - 8.0 04/06 Specimen Type: URINE No comment entered. Ordering Provider: JUANA STOLL Report Released Date/Time: Apr 04, 2024 01:59 PM Reporting Lab: [facility] [address] [facility] [address] Performing Lab: [facility] [address] [facility] [phone] URINALYSI S (STL-PB) APPEARANCE OF URINE Clear 04/06 Specimen Type: URINE No comment entered. Ordering Provider: JUANA STOLL Report Released Date/Time: Apr 04, 2024 01:59 PM Reporting Lab: [facility] [address] [facility] [address] Performing Lab: [facility] [address] [facility] [address] [facility] URINALYSI S (STL-PB) NITRITE [PRESENCE] IN URINE BY TEST STRIP Negative mg/dL 04/06 Specimen Type: URINE No comment entered. Ordering Provider: JUANA STOLL Report Released Date/Time: Apr 04, 2024 01:59 PM Reporting Lab: [facility] [address] [facility] [address] Performing Lab: [facility] [address] [facility] [address] [facility] URINALYSI S (STL-PB) GLUCOSE [MASS/VOLU ME] IN URINE BY TEST STRIP Normalmg /dL 04/06 Specimen Type: URINE No comment entered. Ordering Provider: JUANA STOLL Report Released Date/Time: Apr 04, 2024 01:59 PM Reporting Lab: [facility] [address] [place] [phone] Performing Lab: [facility] [address] [place] [address] [facility] URINALYSI S (STL-PB) PROTEIN [MASS/VOLU ME] IN URINE BY TEST STRIP 10 mg/dL 04/06 H Specimen Type: URINE No comment entered. Ordering Provider: JUANA STOLL Report Released Date/Time: Apr 04, 2024 01:59 PM Reporting Lab: [facility] [address] [place] [address] Performing Lab: [facility] [address] [place] [phone] [place] [address] URINALYSI S (STL-PB) URN.UROBIL INOGEN Normalmg /dL 04/06 Specimen Type: URINE No comment entered. Ordering Provider: JUANA STOLL Report Released Date/Time: Apr 04, 2024 01:59 PM Reporting Lab: [facility] [address] [place] [address] Performing Lab: [facility] [address] [place] [address] [facility] URINALYSI S (STL-PB) HEMOGLOBIN [MASS/VOLU ME] IN URINE BY TEST STRIP Negative mg/dL 04/06 Specimen Type: URINE No comment entered. Ordering Provider: JUANA STOLL Report Released Date/Time: Apr 04, 2024 01:59 PM Reporting Lab: [facility] [address] [place] [address] Performing Lab: [facility] [address] [place] [address] [facility] URINALYSI S (STL-PB) KETONES [MASS/VOLU ME] IN URINE BY TEST STRIP 10 mg/dL 04/06 H Specimen Type: URINE No comment entered. Ordering Provider: JUANA STOLL Report Released Date/Time: Apr 04, 2024 01:59 PM Reporting Lab: [facility] [address] [facility] [address] Performing Lab: [facility] [address] [facility] [address] [facility] URINALYSI S (STL-PB) URN.LEUK.E ST. Negative mg/dL 04/06 Specimen Type: URINE No comment entered. Ordering Provider: JUANA STOLL Report Released Date/Time: Apr 04, 2024 01:59 PM Reporting Lab: [facility] [address] [place] [phone] Performing Lab: [facility] [address] [place] [address] [facility] URINALYSI S (STL-PB) SPECIFIC GRAVITY OF URINE 1.028 04/06 Specimen Type: URINE No comment entered. Ordering Provider: JUANA STOLL Report Released Date/Time: Apr 04, 2024 01:59 PM Reporting Lab: [facility] [address] [place] [phone] Performing Lab: [facility] [address] [place] [address] [facility] Vital Signs Combined list of inpatient and outpatient Vital Signs from Department of Defense and Veterans Affairs, ranging from 12 months to all on record, depending upon the facility. Vital Sign Value Date Comments Source SYSTOLIC BLOOD PRESSURE 149 05/15/2024 12:52:29 [facility] DIASTOLIC BLOOD PRESSURE 83 05/15/2024 12:52:29 [facility] PULSE OXIMETRY 98 05/15/2024 12:52:29 [facility]IGHT 197.2 05/15/2024 12:52:29 [facility] BMI 30 kg/m2 05/15/2024 12:52:29 [facility] PAIN 5 05/15/2024 12:52:29 [facility] HEIGHT 68 05/15/2024 12:52:29 [facility] TEMPERATURE 98.3 05/15/2024 12:52:29 [facility] PULSE 74 05/15/2024 12:52:29 [facility] RESPIRATION 18 05/15/2024 12:52:29 [facility] SYSTOLIC BLOOD PRESSURE 139 05/08/2024 11:44:14 [facility] DIASTOLIC BLOOD PRESSURE 74 05/08/2024 11:44:14 [facility] PULSE OXIMETRY 93 05/08/2024 11:44:14 [facility] TEMPERATURE 98.4 05/08/2024 11:44:14 [facility] PULSE 89 05/08/2024 11:44:14 Tamar Garcia [facility] RESPIRATION 18 05/08/2024 11:44:14 [facility] Encounters Combined list of: 1) Encounters from Department of [facility] facilities going backup to the last 18 months, not all VA inpatient encounters are included; 2) Encounters from the Department of [facility] facilities going backup to 280 months. Location Location Details Encounter Type Encounter Number Reason For Visit Attending Provider ADM Date DC Date Status Disposition Source [facility] Outpatient Encounter [id number] 01/28 [facility] Outpatient Encounter [id number] 02/02 [facility] N [facility] Outpatient Encounter [id number] 02/08 [facility] N [facility] Outpatient Encounter [id number] 02/09 [facility] Outpatient Encounter [id number] TERESA BARCLAYALBERT 02/16 [facility] OFFICE O/P EST HI 40-54 MIN [id number] Diagnos is: ICD-10- CM M54.50 Low back pain, unspeci fied MACKENZIE LEON 02/17 [facility] Outpatient Encounter [id number] 02/22 [facility] Outpatient Encounter [id number] 02/22 [facility] Outpatient Encounter [id number] JUSTEN MILLER 02/24 [facility] SELF CARE MNGMENT TRAINING [id number] Diagnos is: ICD-10- CM R54 Age-rel ated physica l eveit y AYDEN MAGALLANES 03/04 [facility] Outpatient Encounter [id number] 03/15 [facility] Outpatient Encounter [id number] 05/12 [facility] IMG RTA DETCJ/MNTR DS STAFF [id number] Diagnos is: ICD-10- CM Z13.5 Encount er for screeni ng for eye and ear disorde PRAMOD Garcia 05/19 [facility] OFFICE O/P EST MOD 30 MIN [id number] Diagnos is: ICD-10- CM G20.C Makeda onism, unspeci fied JUANA STOLL 05/19 [facility] HC PRO PHONE CALL 5-10 MIN [id number] Diagnos is: ICD-10- CM Z74.09 Other reduced mobilit y Juan JAMES 05/20 [facility] Outpatient Encounter [id number] Diagnos is: ICD-10- CM Z13.5 Encount er for screeni ng for eye and ear disorde MATT Dowell 05/20 [facility] Outpatient Encounter [id number] PRAMOD NARAYAN 05/20 [facility] Outpatient Encounter [id number] 06/07 [facility] WHEELCHAIR MNGMENT TRAINING [id number] Diagnos is: ICD-10- CM G20.C Makeda onism, unspeci fied IVETTE PITTMAN 07/14 [facility] Outpatient Encounter [id number] 08/01 [facility] Outpatient Encounter [id number] Juan ESCOBAR 08/08 [facility] Outpatient Encounter [id number] 08/16 [facility] HC PRO PHONE CALL 5-10 MIN [id number] Diagnos is: ICD-10- CM Z74.09 Other reduced mobilit y Juan JAMES KEI 08/16 [facility] Outpatient Encounter [id number] 08/17 [facility] Outpatient Encounter [id number] 08/23 [facility] Outpatient Encounter [id number] 11/03 [facility] HC PRO PHONE CALL 5-10 MIN [id number] Diagnos is: ICD-10- CM Z74.2 Need for assist at home and no house memb able to render care Juan JAMES 11/04 [facility] CASE MANAGEMENT [id number] Diagnos is: ICD-10- CM G20.C Makeda onism, unspeci fied GHISLAINE POSEY 11/09 [facility] Outpatient Encounter [id number] GHISLAINE POSEY 11/09 [facility] HC PRO PHONE CALL 5-10 MIN [id number] Diagnos is: ICD-10- CM G45.9 Transie nt cerebra l ischemi c attack, unspeci fied SMOOTH SULLIVAN 11/17 [facility] CASE MANAGEMENT [id number] Diagnos is: ICD-10- CM G20.C Makeda onism, unspeci fied GHISLAINE POSEY 12/14 [facility] Outpatient Encounter [id number] PEREZ HDEZMAXIMGHISLAINE Garcia 12/14 [facility] Outpatient Encounter [id number] 12/19 [facility] Outpatient Encounter [id number] 12/20 [facility] OFF[facility] O/P EST LOW 20 MIN [id number] Diagnos is: ICD-10- CM G20.C Makeda onism, unspeci fied JUANA STOLL 12/29 [facility] CASE MANAGEMENT [id number] Diagnos is: ICD-10- CM G20.C Makeda onism, unspeci fied PEREZ KETTYMAXIMGHISLAINE Jose 12/30 [facility] Outpatient Encounter [id number] 01/11 [facility] Outpatient Encounter [id number] 01/18 [facility] Outpatient Encounter [id number] 01/18 [facility] Outpatient Encounter [id number] 01/30 [facility] Out[facility] Encounter [id number] 02/07 [facility] Outpatient Encounter [id number] 03/22 [facility] Outpatient Encounter [id number] 03/24 [facility] Outpatient Encounter [id number] 03/27 [facility] Outpatient Encounter [id number] GHISLAINE POSEY 04/11 [facility] Outpatient Encounter [id number] 05/01 [facility] OFFICE O/P EST LOW 20 MIN [id number] Diagnos is: ICD-10- CM G20.C Makeda onism, unspeci CASSIUS Lara IS J 05/08 [facility] Outpatient Encounter [id number] 05/09 [facility] OFFICE O/P EST MOD 30 MIN [id number] Diagnos is: ICD-10- CM N40.1 Benign prostat ic hyperpl jaciel with lower urinary tract symp JUANA STOLL 05/15 [facility] Outpatient Encounter [id number] 05/31 [facility] Outpatient Encounter [id number] 06/06 [facility] Outpatient Encounter [id number] 06/07 [facility] Outpatient Encounter [id number] 06/12 [facility] OFFICE O/P EST MOD 30 MIN [id number] Diagnos is: ICD-10- CM N40.1 Benign prostat ic hyperpl jaciel with lower urinary tract symp PENELOPE MORALES 06/12 [facility] Outpatient Encounter [id number] 07/14 [facility] CASE MANAGEMENT [id number] Diagnos is: ICD-10- CM G20.C Makeda onleah, kimoi GHISLAINE Ngo 07/18 [facility] N Social History Combined list of available smoking, tobacco, and other social history from [facility] of Defense and [facility] facilities. Social History Type Response Date Comment [facility] e Tobacco smoking status NHIS VA-TOBACCO USE FORMER CIGARETTES 05/15/2024 [facility] History of tobacco use VA-TOBACCO NEVER USED OTHER TYPE 05/15/2024 [facility] History of tobacco use VA-TOBACCO FORMER USER 02/17/2023 [facility] History of tobacco use QUIT TOBACCO >7 YEARS AGO 12/19/2013 [facility] History of tobacco use QUIT TOBACCO >7 YEARS AGO 09/02/2012 [facility] History of tobacco use QUIT TOBACCO >7 YEARS AGO 02/03/2010 [facility] History [facility] tobacco use CURRENT TOBACCO USER 12/24/2008 Tamar Poon [facility] History of tobacco use QUIT TOBACCO IN THE LAST 12 MONTHS 12/12/2007 Tamar LEES [facility] History of tobacco use TOBACCO OFFERED STOP SMOKING CLINIC 06/30/2007 Tamar LEES [facility] History of tobacco use CURRENT TOBACCO USER 12/17/2006 Tamar Poon [facility] History of tobacco use CURRENT TOBACCO USER 06/04/2006 Tamar LEES [facility] History of tobacco use CURRENT TOBACCO USER 11/18/2005 [facility] N[facility] History of tobacco use CURRENT NON-TOBACCO USER-HX OF USE 05/19/2005 Tamar LEES [facility] History of tobacco use CURRENT TOBACCO USER 09/10/2004 Tamar Poon [facility] History of tobacco use CURRENT TOBACCO USER 06/10/2004 Tamar Poon [facility] History of tobacco use CURRENT TOBACCO USER 06/27/2003 Tamar LEES [facility] History of tobacco use CURRENT TOBACCO USER 01/24/2003 Tamar LEES [facility] History of tobacco use CURRENT TOBACCO USER 09/20/2002 Tamar Poon [facility] History of tobacco use CURRENT TOBACCO USER 03/22/2002 Tamar LEES [facility] History of tobacco use CURRENT TOBACCO USER 09/21/2001 Tamar LEES [facility] History of tobacco use CURRENT TOBACCO USER 05/17/2001 Tamar LEES [facility] History of tobacco use CURRENT TOBACCO USER 01/17/2001 [facility] NABEEL [facility] Plan of Care List of future care activities from [facility] facilities. Additional future care activities may be listed in the Assessment and Plan section. Date/Time Care Activity Care Activity Detail Facili ty 12/13/2024 AMBULATORY - SURGERY AMBULATORY - SURGERY [facility] Advance Directives List of completed, amended, or rescinded Advance Directives on record at [facility] facilities. An actual copy of the Directive is not included. Date Advance Directive Provider Source 02/08/2023 ADVANCE DIRECTIVE DMITRIY WEBB [facility] 06/30/2007 ADVANCE DIRECTIVE SANTIAGO WALLER [facility]
--- OUTSIDE RECORDS SUMMARY | 2024-07-21 20:28 | XMS_ITS | Clinical Summary ---
Author Organization [facility] Address [address] [place] [address] Care Team Providers Care Verifying Machine Operator Name Role Phone Bubba Mari MD Primary Care Provider [phone] Allergies Active Allergy Reactions Criticality Noted Date Comments Sulfa Antibiotics Hives High 10/08/2022 Medications carbidopa-levodopa (PARCOPA) 25-250 MG disintegrating tablet Take 1 tablet by mouth 2 (two) times a day. 3 Active rOPINIRole (REQUIP) 1 MG tablet Take 1 tablet (1 mg total) by mouth 2 (two) times a day. 3 Active amitriptyline (ELAVIL) 25 MG tablet Take 2 tablets (50 mg total) by mouth nightly at bedtime. 3 Active tamsulosin (FLOMAX) 0.4 MG Cap Take 1 capsule (0.4 mg total) by mouth daily. 3 Active tiZANidine (ZANAFLEX) 2 MG tablet Take 1 tablet (2 mg total) by mouth. 3 Active meloxicam (MOBIC) 7.5 MG tablet Take 1 tablet (7.5 mg total) by mouth daily. 3 Active atorvastatin (LIPITOR) 40 MG tablet Take 1 tablet (40 mg total) by mouth nightly at bedtime. 3 Active omeprazole (PRILOSEC) 40 MG capsule Take 1 capsule (40 mg total) by mouth daily. 3 Active timolol (TIMOPTIC) 0.5 % ophthalmic solution Place 1 drop into the left eye daily. 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 180 tablet 11 4 Active carbidopa-levodopa (SINEMET) 10-100 MG tabletIndications:P arkinson's disease without dyskinesia or fluctuating manifestations (CMS/HCC HHS/HCC) Tae 3 tabs three times day 810 tablet 9 4 Active Active Problems Problem Noted Date Diagnosed Date Benign neoplasm of colon 04/10/2024 Chest pain 04/10/2024 Diverticular disease 04/10/2024 Gastroesophageal reflux disease 04/10/2024 Hyperlipidemia 04/10/2024 Impaired fasting glucose 04/10/2024 Benign prostatic hyperplasia with lower urinary tract symptoms 10/08/2022 Ataxia, unspecified 10/08/2022 Cerebral atherosclerosis 10/08/2022 Cyst of kidney, acquired 10/08/2022 Diverticulosis of intestine, part unspecified, without perforation or abscess without bleeding 10/08/2022 Hyperlipidemia, unspecified 10/08/2022 Resolved Problems Problem Noted Date Diagnosed Date Resolved Date Encounter for screening for eye and ear disorders 04/10/2024 04/17/2024 Immunizations Immunization Administration Dates Next Due Influenza (Generic) 01/24/2003 Td, Adsorbed, Preservative F ree, Adult Use, Lf Unspecified 05/17/2001 Tdap (Generic) 12/19/2013 Social History Tobacco Use Types Packs/Day Years Used Date Smoking Tobacco: Former Cigarettes Smokeless Tobacco: Never Tobacco Cessation:Counseling Given: Yes Alcohol Use Standard Drinks/Week Comments Not Currently 0 (1 standard drink = 0.6 oz pur e alcohol) rare occ PHQ-2 Answer Date Recorded Patient Health Questionnaire-2 Score 1 12/02/2023 Sex and Gender Information Value Date Recorded Sex Assigned at Not on file Legal Sex Male 4:19 PM CDT Gender Identity Not on file Sexual Orientation Not on file Last Filed Vital Signs Vital Sign Reading Time Taken Comments Blood Pressure 146/80 04/13/2024 11:28 AM [employer]OTIONS SPECIALIST Pulse 72 04/13/2024 11:28 AM [employer]OMOTIONS SPECIALIST Temperature 36.7 C (98.1 F) 04/13/2024 11:28 AM [employer]OMOTIONS SPECIALIST Respiratory Rate 16 04/27/2023 2:54 PM [employer]OMOTIONS SPECIALIST Oxygen Saturation 99% 04/13/2024 11:28 AM [employer]OMOTIONS SPECIALIST Inhaled Oxygen Concentration - - Weight 89.5 kg (197 lb 4.8 oz) 04/13/2024 11:28 AM [employer]OMOTIONS SPECIALIST Height 172.7 cm (5' 8 ) 04/13/2024 11:28 AM [employer]OMOTIONS SPECIALIST Body Mass Index 30 04/13/2024 11:28 AM PROMOTIONS SPECIALIST Plan of Treatment Upcoming Encounters Date Type Department Care Team (Late st Contact Info) Description 09/05/2024 1:40 PM CDT Office Visit [facility] - [facility] [address], [address] [place] [address] Perfecto Marx MD [address] [place] [address] Health Maintenance Due Date Last Done Comments ASCVD LDL 1945 Pneumococcal Vaccine: 50+ Years (1 of 1 - PCV) 07/21/1993 Zoster Vaccines (1 of 2) 07/21/1993 Annual Medicare Wellness Visit 07/21/2008 RSV Immunization or 60+ Years (1 - 1-dose 75+ series) 07/21/2018 COVID-19 Vaccine (4 - 2023-2 5 season) 2023 03/31/2021, 08/13/2020, 07/19/2020 DTaP, Tdap and Td Vaccines ( 2 - Td or Tdap) 12/20/2023 12/19/2013, 05/17/2001 PHQ-2 (Physician [place]) 04/05/2024 12/02/2023 Meningococcal B Vaccine Aged Out No l onger eligible based on patient's age to complete this topic Meningococcal Vaccine Aged Out No anderson charly eligible based on patient's age to complete this topic RSV Immunizations Under 20 Months Aged Out No longer eligible b ased on patient's age to complete this topic Insurance [facility] Care Teams Verifying Machine Operator Relationship Specialty Start Date End Date Bubba Mari MD [address] [address] PCP - General FAMILY PRACTICE 12/02/23
--- OUTSIDE RECORDS SUMMARY | 2024-07-21 20:28 | XMS_ITS | Encounter Summary ---
Author Name [facility] [place] [facility] [place] Address [address] [place] [address] Care Team Providers Care Mercerizing Range Feeder Name Role Phone MANOLO STOLL Primary Care [...] Name Patient's Relationship to Policy Stover [employer] [facility] ([place]NR) MEDICARE ADVANTAGE [facility] ([place]NR) Apr 05, 2018 [id number] JIA FAUST PATIENT Selected Encounter This section includes the information on record at [place] for the Encounter. Date/Time Encounter Type Encounter Description Reason Provider Source Dec 30, 2023 11:30 AM OFFICE O/P EST LOW 20 MIN PRIMARY CARE/MEDICINE ICD-10-CM G20.C Parkinsonism, unspecified AURA STOLL Encounter Template Text not used by [facility] Assessments - Encounter Diagnoses This section includes the primary and secondary diagnoses documented for the Encounter. Date/Time Primary/Secondary Diagnosis Diagnosis Name Provider Source Dec 30, 2023 12:03 PM PRIMARY Parkinsonism, unspecified MANOLO STOLL [facility] Dec 30, 2023 12:03 PM SECONDARY Age-related physical debility MANOLO STOLL [facility] Plan of Treatment: Future Appointments (+ 6 months) and Future Tests (+/- 45 days) The Plan of Treatment section includes future care activities for the patient [facility] This section includes future appointments and future orders which are active, pending or scheduled. Future Appointments This section includes appointments that were scheduled to occur 6 months from the date of the Encounter, up to a maximum of 20 appointments. The data comes from all [facility]. Appointment Date/Time Appointment Type Appointme nt Facility Name Jan 19, 2024 08:00 AM AMBULATORY - NONE [facility] May 01, 2024 12:30 PM AMBULATORY - MEDICINE [facility] May 08, 2024 11:40 AM AMBULATORY - SURGERY [facility] May 15, 2024 12:30 PM AMBULATORY - MEDICINE [facility] Jun 12, 2024 01:00 PM AMBULATORY - SURGERY [facility] Social History: Smoking Status (Most current) and Tobacco Use (All prior to encounter date) This section includes the most current, and the historical, smoking and tobacco- related health factors from the [place] facility where the Encounter took place. Current Smoking Status This section includes the most current smoking, or tobacco-related health factor, from the [place] facility where the Encounter took place. Date/Time Current Smoking Status Comment Edilia itjhony Dec 19, 2013 01:30 PM QUIT TOBACCO >7 YEARS AGO [facility] Tobacco Use History This section includes a history of the smoking, or tobacco-related health factors, that were collected on or before the date of the Encounter. The data comes from the [place] facility where the Encounter took place. Date/Time Smoking Status/Tobacco Use Comment F acbora September 02, 2012 01:00 PM QUIT TOBACCO >7 YEARS AGO [facility] Feb 03, 2010 02:30 PM QUIT TOBACCO >7 YEARS AGO [facility] Dec 24, 2008 01:30 PM CURRENT TOBACCO USER [facility] Dec 12, 2007 01:30 PM QUIT TOBACCO IN TH E LAST 12 MONTHS [facility] Jun 30, 2007 03:30 PM CURRENT TOBACCO USER [facility] Jun 30, 2007 03:[address] OP SMOKING CLINIC [facility] Dec 17, 2006 02:00 PM CURRENT TOBACCO USER [facility] Dec 17, 2006 02:00 PM TOB-DECLINES SMOKI NG CESSATION REFERRAL [facility] Dec 17, 2006 02:00 PM TOBACCO MEDS OFFER ED BUT DECLINED [facility] Jun 04, 2006 02:00 PM CURRENT TOBACCO USER [facility] Jun 04, 2006 02:00 PM TOB-DECLINES SMOKI NG CESSATION REFERRAL [facility] Nov 18, 2005 03:30 PM CURRENT TOBACCO USER [facility] Nov 18, 2005 03:30 PM SMOKER 10-20 [facility] May 19, 2005 02:00 PM CURRENT NON-TOBACC O USER-HX OF USE [facility] May 19, 2005 02:00 PM TOBACCO TERMINATION STAGE [facility] Sep 10, 2004 03:00 PM CURRENT TOBACCO USER [facility] Sep 10, 2004 03:00 PM SMOKER 10-20 [facility] Jun 10, 2004 01:15 PM CURRENT TOBACCO USER [facility] Jun 10, 2004 01:15 PM SMOKER 1-2 [facility] Jun 10, 2004 01:15 PM SMOKER 10-20 [facility] Jun 10, 2004 01:15 PM TOBACCO PRECONTEMPLATION STAGE [facility] Jun 27, 2003 02:00 PM CURRENT TOBACCO USER [facility] Jun 27, 2003 02:00 PM SMOKER 1-2 [facility] Jan 24, 2003 01:15 PM CURRENT TOBACCO USER [facility] Jan 24, 2003 01:15 PM TOBACCO USE [facility] Sep 20, 2002 01:15 PM CURRENT TOBACCO USER [facility] Sep 20, 2002 01:15 PM TOBACCO USE [facility] Mar 22, 2002 02:00 PM [address]BACCO USER [facility] Mar 22, 2002 02:[address] MADDI [facility] Sep 21, 2001 02:00 PM CURRENT TOBACCO USER [facility] Sep 21, 2001 02:[address] M[facility]DI [facility] May 17, 2001 02:30 PM CURRENT TOBACCO USER [facility] May 17, 2001 02:[address] [facility]DI [facility] Jan 17, 2001 02:10 PM CURRENT TOBACCO USER [facility] Jan 17, 2001 02:10 PM TOBACCO USE . MADDI KURTZ [facility] Advance Directives: All historical and current Section Date Range: From patient's date of to the date document was created. This section includes ALL of a patient's completed or amended [place] Advance and Rescinded Directives. The entries below indicate that a directive exists for the patient, but an actual copy is not included with this document. The data comes from all [place] facilities. Date Advance Directives Provider Source Feb 08, 2023 ADVANCE DIRECTIVE DMITRIY WEBB [facility] Jun 30, 2007 ADVANCE DIRECTIVE SANTIAGO WALLER [facility] Encounter Notes: All associated encounter notes This section contains the clinical notes associated to the Encounter. Date/Time Encounter Note(s) Provider Source May 04, 2024 04:18 PM PHYSICIAN LETTERS: LOCAL TITLE: TEST RESULT GENERAL LETTER STL STANDARD TITLE: PHYSICIAN LETTERS DATE OF NOTE: MAY 04, 2024@16:18 ENTRY DATE: MAY 04, 2024@16:18:26 AUTHOR: MANOLO STOLL COSIGNER: URGENCY: STATUS: COMPLETED [facility] [address] [place] [address] MAY 04, 2024 DARIEN FAUST [address] [place], [place] [address] Dear Darien Faust, I would like to update you on your recent test results. OTHER TEST RESULTS RADIOLOGY (NON-INVASIVE TEST RESULTS): US RENAL COMPLETE (US Detailed) CPT:55674 Reason for Study: 78yo male with BPH with LUTS, needing US kidney/bladder Clinical History: Report Status: Verified Date Reported: MAY 01, 2024 Date Verified: MAY 01, 2024 Inpatient Services Rn E-Sig:/ES/[place]O VILA Report: Report number: [id number] EXAMINATION: Renal sonogram HISTORY: 78yo male with [...] or evidence of a solid renal mass. PLAN Please continue your treatment as we discussed during your visit. If you have any questions please call your pillowcase cleaner. I look forward to seeing you at your next clinic appointment. Thank you for choosing the [facility] for your healthcare. Please attend visit with Urology as scheduled. FUTURE APPOINTMENTS: 05/08/2024 11:40 AARON-UROLOGY MD RES 05/15/2024 12:30 AARON-ST CLR PACT 7 NEW ANGLE Sincerely, MANOLO STOLL Staff Physician DARIEN FAUST JR, [facility] [facility] Apr 07, 2024 08:26 AM PHYSICIAN LETTERS: LOCAL TITLE: TEST RESULT GENERAL LETTER STL STANDARD TITLE: PHYSICIAN LETTERS DATE OF NOTE: APR 07, 2024@08:26 ENTRY DATE: APR 07, 2024@08:26:31 AUTHOR: FRANCINE MEDRANO EXP COSIGNER: URGENCY: STATUS: COMPLETED [facility] [address] [place] [address] APR 07, 2024 [address] FAUST [address] [place], [place] [address] Dear Darien Faust, I would like to update you on your recent test results. URINALYSIS - A urinalysis (or UA ) is an array of tests performed on urine and one of the most common methods of medical diagnosis. URINALYSIS URINE COLOR Yellow 04/06/2024 12:25 APPEARANCE Clear 04/06/2024 12:25 U.PH 6.0 04/06/2024 12:25 U.BILIRUBIN Negative mg/dL 04/06/2024 12:25 U.NITRITE Negative mg/dL 04/06/2024 12:25 These readings are within normal limits. [place] consult placed given your request. If accepted, you should be contacted to schedule an appointment. If you have any questions please call your pillowcase cleaner. I look forward to seeing you at your next clinic appointment. Thank you for choosing the [facility] for your healthcare. FUTURE APPOINTMENTS: 05/15/2024 12:30 -[facility] PACT 7 NEW ANGLE Sincerely, Francine Medrano DNP, SHELL GRADER, CASING SPLITTER-C Primary Care Nurse Practitioner DARIEN FAUST JR, SHELBY R [facility] Dec 30, 2023 11:39 AM TELEHEALTH NOTE: LOCAL TITLE: PRIMARY CARE VIDEO CONNECT ST STANDARD TITLE: TELEHEALTH NOTE DATE OF NOTE: DEC 30, 2023@11:39 ENTRY DATE: DEC 30, 2023@11:39:22 AUTHOR: MANOLO STOLL COSIGNER: URGENCY: STATUS: COMPLETED ESTABLISHED PATIENT VIDEO: REASON FOR VISIT/CHIEF COMPLAINT:78yo male with VVC to discuss mobility issues. HPI: Son is main source of info on this visit. Main concern today is getting a wheelchair. He is currently using a mobility scooter and it works well, but there are several placed where the scooter does not fit. He has a hx of parkinson's with some worsening in his mobility status of late. --they would like him to get his own wheelchair to use in areas where the scooter will not fit. He has had a few instances where he has to use the wheelchair of a clinic or other facility that was not secure and he has been toppled out of the wheelchair. --he has hx of parkinson's and has had somewhat worsening status in the last few months. He and his live in a home by themselves, with patient's son and daughter helping as they can. He also has in home respite up to 15 hours per week. His family is looking into further in-home care options so that he does not have to be moved to a [facility]. --he will be starting physical therapy next week as well to see if his mobility can be improved. WHAT IS YOUR GOAL FOR TODAY? SOURCE(S) OF HISTORY: Son of patient PAST MEDICAL HISTORY: 1) Low back pain 2) Impotence of Psychogenic Origin 3) HLD - Hyperlipidaemia 4) Gastroesophageal reflux disease 5) Chest Pain 6) Abdominal Pain of the Left Upper Quadrant (ICD-9-CM 789.02) 7) Colonic Polyps (ICD-9-CM 211.3) 8) Impaired FASTING Glucose 9) Parkinsonism 10) DD - Diverticular disease 11) Debility 12) Transient ischemic attack 13) Benign prostatic hyperplasia ALLERGIES: SIMVASTATIN, SULFA DRUGS ALLERGY REVIEW: Allergy list reviewed and remains current. MEDICATIONS: Active and Recently Outpatient Medications (excluding Supplies): Active Outpatient Medications Status 1) HYDROPHILIC (EQV EUCERIN) TOP CREAM APPLY LIGHTLY TO ACTIVE AFFECTED AREA(S) ONCE A DAY FOR DRY SKIN (EXTERNAL USE ONLY) Active Non-VA Medications Status 1) Non-VA AMITRIPTYLINE HCL 10MG TAB 10MG BY MOUTH AT ACTIVE BEDTIME 2) Non-VA AMITRIPTYLINE HCL 50MG TAB 50MG BY MOUTH AT ACTIVE BEDTIME 3) Non-VA ASPIRIN 81MG EC TAB 81MG BY MOUTH ONCE A DAY ACTIVE 4) Non-VA ATORVASTATIN CALCIUM 80MG TAB 40MG BY MOUTH ACTIVE EVERY EVENING 5) Non-VA CARBIDOPA 10/LEVODOPA 100MG TAB 2 TABLETS BY ACTIVE MOUTH THREE TIMES A DAY 6) Non-VA CARBIDOPA 25/LEVODOPA 250MG TAB 1 TABLET BY ACTIVE MOUTH TWICE A DAY 7) Non-VA MELOXICAM 7.5MG TAB 7.5MG BY MOUTH ONCE A DAY ACTIVE 8) Non-VA OMEPRAZOLE 40MG EC CAP 40MG BY MOUTH EVERY ACTIVE MORNING BEFORE A MEAL 9) Non-VA ROPINIROLE HCL 1MG TAB 1MG BY MOUTH ONCE A DAY ACTIVE 10) Non-VA TAMSULOSIN HCL 0.4MG CAP 0.4MG BY MOUTH EVERY ACTIVE EVENING 11) Non-VA TIZANIDINE HCL 4MG TAB 2MG BY MOUTH AT BEDTIME ACTIVE 12 Total Medications MEDICATION RECONCILIATION: I have reviewed the patient's medication list with the patient and/or his/her care-iv rn. Handwritten corrections, additions and/or deletions were made to the list. Corrected Outpatient Medication List was provided to the patient/caregiver. VITALS (most recent, as listed in the electronic record): Temperature: 97.2 F [36.2 C] (05/19/2023 13:19) BP: 112/78 (05/19/2023 13:28) Pulse: 83 (05/19/2023 13:19) Resp: 18 (05/19/2023 13:19) PulsOx: 96% (05/19/2023 13:19) Pain: 0 (05/19/2023 13:19) Weight: Measurement DT WEIGHT LB(KG)[BMI] 05/19/2023 13:19 188.2(85.37)[29*] 02/17/2023 12:42 186(84.37)[28*] DATA REVIEW: No HEMOGLOBIN A1C EO data found Lipid Panel: No LIPID PANEL EO data found CMP: No COMPREHENSIVE METABOLIC PANEL EO data found CBC: No CBC EO data found No PSA (LAST 10 5Y) EO data found TSH: No TSH (1YR) EO data found No VITAMIN D EO data found INR: No INR EO data found UA: No URINALYSIS EO data found IM - IMMUNIZATIONS ADMINISTERED Immunization Series Date Facility Reaction Info INFLUENZA (HISTORICAL) 01/24/2003 [facility] INFLUENZA, UNSPECIFIED FORMULATI* 01/24/2003 [facility] TD(ADULT) UNSPECIFIED FORMULATION 05/17/2001 [facility] TDAP 12/19/2013 [facility] <C> CONTRAINDICATED No data available REFUSED ======= Immunization Date Facility Info INFLUENZA, UNSPECIFIED FORMULATI* 05/19/2023 [facility] <I> ASSESSMENT/PLAN: Patient with hx of parkinson's disease, currently managed by nonVA Neurology. Has had worsening mobility issues of late and having a harder time getting around. --currently has a [place] issued scooter that works well for a lot of areas, but is large and hard to navigate in some facilities. Son would like for patient to have a wheelchair to use in these situations, as the borrowed chairs are not secure and he has actually fallen out of these a couple times during transitions and trasport. Given number to wheelchair clinic for him to call to set up a visit. --Son denies additional needs from this provider currently. Will continue current plan of care, continue with currently scheduled visit in May 2023, sooner as needed. SUMMARY STATEMENT: Plan of care has been discussed with including expected therapeutic benefits and potential side effects of prescribed medication and treatments. [facility] verbalizes understanding and is in agreement with the plan of care. Patient was instructed to keep all scheduled appointments and contact editorial clerk for any additional problems. PREVENTION & SCREENING: ALCOHOL: Clinical Reminder not due now or within a month COLORECTAL CANCER: Clinical Reminder not due now or within a month BLOOD PRESSURE: Clinical Reminder not due now or within a month HEMOGLOBIN A1C: Clinical Reminder not due now or within a month [facility]15-[facility] Video Connect/Video to Home: [facility] Video Connect (VVC)/Video to home template v1.5 Visit conducted by synchronous telehealth. Location/emergency number confirmed. Environment surveyed and all participants identified. Virtual conference room locked. VVC/Video to home appointment information: The following items were reviewed: - The nature of telehealth, its benefits, and risks. - Confidentiality and its limits. - The importance of having a confidential location for the service. - The emergency plan. - The appointment should be treated like an in person appointment (no smoking or driving during session, showing up fully dressed, etc.) *The Virtual Medical Room was locked for this encounter. *A survey of the environment was conducted and it is appropriate to conduct a VVC appointment. *Confirmed 's Non-VA location for this appointment: [facility] [address] [place] [address] [address] [place], [place] [address] Address and phone number verified with . Address: Phone: Emergency Contact: Name: Heather Alvarado Phone: as listed above Others were present at this appointment(caregiver, family member, etc.) Details: * was notified of right to decline Telehealth services and eligibility for other options. [facility] consented to be seen via VVC. EMERGENCY PLAN In the event of an emergency, the [facility] or family will call emergency services, if capable. The Teleprovider will remain in the virtual medical room until emergency response arrives and handoff to emergency services is complete. If [facility] is unable to make emergency call, the Teleprovider is to call the national E911 service at [phone] and ask to be connected to emergency services for the 's location. 's Crisis Line: Dial 988 then press 1, or text [phone] Office of Connected Care Helpdesk (OCC): [phone] or [phone] Verified Provider's location and contact information for this appointment: Other Location home Phone: /alena/ MANOLO STOLL Staff Physician Signed: 12/30/2023 12:03 MANOLO STOLL [facility]
--- OUTSIDE RECORDS SUMMARY | 2024-07-21 20:28 | XMS_ITS | Encounter Summary ---
Author Name [facility] Address [address] [place] [address] Care Team Providers Care Credit Rating Checker Name Role Phone MANOLO FRANCISCO Primary Care Provider Unavailab le Insurance Providers: [...] Name Patient's Relationship to Policy Stover [employer] [facility] (WNR) MEDICARE ADVANTAGE [facility] (WNR) Apr 05, 2018 [id number] JIA FAUST PATIENT Selected Encounter This section includes the information on record at [place] for the Encounter. Date/Time Encounter Type Encounter Description Reason Provider Source May 15, 2024 12:30 PM OFFICE O/P EST MOD 30 MIN PRIMARY CARE/MEDICINE ICD-10-CM N40.1 Benign prostatic hyperplasia with lower urinary tract symp [facility] Encounter Template Text not used by [facility] Assessments - Encounter Diagnoses This section includes the primary and secondary diagnoses documented for the Encounter. Date/Time Primary/Secondary Diagnosis Diagnosis Name Provider Source May 15, 2024 02:01 PM PRIMARY Benign prostatic hyperplasia with lower urinary tract symp [facility] May 15, 2024 02:01 PM SECONDARY Gastro-esophageal reflux disease without esophagitis MANOLO FRANCISCO [facility] May 15, 2024 02:01 PM SECONDARY Hyperlipidemia, unspecified [facility] May 15, 2024 02:01 PM SECONDARY Low back pain, unspecified [facility] May 15, 2024 02:01 PM SECONDARY Parkinsonism, unspecified [facility] Plan of Treatment: Future Appointments (+ 6 months) and Future Tests (+/- 45 days) The Plan of Treatment section includes future care activities for the patient from all [place] [facility]. This section includes future appointments and future orders which are active, pending or scheduled. Future Appointments This section includes appointments that were scheduled to occur 6 months from the date of the Encounter, up to a maximum of 20 appointments. The data comes from all [facility]. Appointment Date/Time Appointment Type Appointme nt Facility Name Jun 12, 2024 01:00 PM AMBULATORY - SURGERY [facility] Active, Pending, and Scheduled Orders This section includes a listing of several types of active, pending, and scheduled orders, including clinic medications orders, diagnostic test orders, procedure orders and consult orders; where the start date of the order is 45 days before the date of the Encounter or 45 days after the date of theEncounter. The data comes from all [facility]. Test Date/Time Test Type Test Details Facility Name Apr 09, 2024 12:00 AM Laboratory - Chemi stry Order BASIC METABOLIC PANEL GREEN LI/HEP BLD/PLAS PLASMA SP [facility] Lab Results: +/- 30 days of the encounter This section includes the Chemistry and Hematology Lab Results on record with [place] for the patient. Radiology Reports and Pathology Reports are provided separately, in subsequent sections. Lab Results This section contains the Chemistry/Hematology Results that were resulted 30 days before or 30 daysafter the date of the Encounter. Date/Time Source Result Type Result - Unit Interpretation Reference Range Specimen Type Comment Jun 12, 2024 12:55 PM [facility] POC UA (STL-PB-MA) URINE Specimen Type: URINE Comment: Test Performed by: [id number] Meter #: [id number] Ordering Provider: SUSIE MORALES Report Released Date/Time: Jun 12, 2024 12:56 PM Reporting Lab: [facility] [address] [facility] [id number] Performing Lab: [facility] [address] [facility] [id number] PROTEIN POC UA Negative mg/dL Negative BLOOD POC UA Negative Negative LEUKOCYTES POC UA Negative Negative COLOR POC UA Yellow YELLOW SPEC GRAV POC UA 1.020 1.005-1.030 UROBILINOGEN POC UA 0.2 {John'U}/dL 0 .1-1.0 BILIRUBIN POC UA Negative Negative KETONES POC UA Negative mg/dL Negative GLUCOSE POC UA Negative mg/dL Negative pH POC UA 6.0 5.0-8.0 NITRITE POC UA Negative Negative CLARITY POC UA Clear CLEAR Vital Signs: All taken on the encounter date This section contains inpatient and outpatient Vital Signs collected on the date of the Encounter. Date/Time Temperature Pulse Blood Pressure Respiratory Rate SP02 Pain Height Weight Body Mass Index Source May 15, 2024 01:01 PM 130/78 [facility] May 15, 2024 12:52 PM 98.3 74 149/83 18 98 5 68 197.2 30 [facility] Social History: Smoking Status (Most current) and Tobacco Use (All prior to encounter date) This section includes the most current, and the historical, smoking and tobacco- related health factors from the [place] facility where the Encounter took place. Current Smoking Status This section includes the most current smoking, or tobacco-related health factor, from the [place] facility where the Encounter took place. Date/Time Current Smoking Status Comment Facil ity May 15, 2024 12:30 PM VA-TOBACCO USE FOR FELIBERTO CIGARETTES [facility] Tobacco Use History This section includes a history of the smoking, or tobacco-related health factors, that were collected on or before the date of the Encounter. The data comes from the [place] facility where the Encounter took place. Date/Time Smoking Status/Tobacco Use Comment F acility May 15, 2024 12:30 PM VA-TOBACCO USE FORMER CIGARETTES [facility] Dec 19, 2013 01:30 PM QUIT TOBACCO >7 YEARS AGO [facility] September 02, 2012 01:00 PM QUIT TOBACCO >7 YEARS AGO [facility] Feb 03, 2010 02:30 PM QUIT TOBACCO >7 YEARS AGO [facility] Dec 24, 2008 01:30 PM CURRENT TOBACCO USER [facility] Dec 12, 2007 01:30 PM QUIT TOBACCO IN TH E LAST 12 MONTHS [facility] Jun 30, 2007 03:30 PM CURRENT TOBACCO USER [facility] Jun 30, 2007 03:[address] [facility] Dec 17, 2006 02:00 PM CURRENT TOBACCO USER [facility] Dec 17, 2006 02:00 PM TOB-DECLINES SMOKI NG CESSATION REFERRAL [facility] Dec 17, 2006 02:00 PM TOBACCO MEDS OFFER ED BUT DECLINED [facility] Jun 04, 2006 02:00 PM CURRENT TOBACCO USER [facility] Jun 04, 2006 02:00 PM TOB-DECLINES SMOKI NG CESSATION REFERRAL [facility] Nov 18, 2005 03:30 PM CURRENT TOBACCO USER [facility] Nov 18, 2005 03:30 PM SMOKER 10-20 [facility] May 19, 2005 02:00 PM CURRENT NON-TOBACC O USER-HX OF USE [facility] May 19, 2005 02:00 PM TOBACCO TERMINATION STAGE [facility] Sep 10, 2004 03:00 PM CURRENT TOBACCO USER [facility] Sep 10, 2004 03:00 PM SMOKER 10-20 [facility] Jun 10, 2004 01:15 PM CURRENT TOBACCO USER [facility] Jun 10, 2004 01:15 PM SMOKER 1-2 [facility] Jun 10, 2004 01:15 PM SMOKER 10-20 [facility] Jun 10, 2004 01:15 PM TOBACCO PRECONTEMPLATION STAGE [facility] Jun 27, 2003 02:00 PM CURRENT TOBACCO USER [facility] Jun 27, 2003 02:00 PM SMOKER 1-2 PACKS . [facility] Jan 24, 2003 01:15 PM CURRENT TOBACCO USER . [facility] Jan 24, 2003 01:15 PM TOBACCO USE . [facility] Sep 20, 2002 01:15 PM CURRENT TOBACCO USER . [facility] Sep 20, 2002 01:[address] [facility] [facility] Mar 22, 2002 02:00 PM CURRENT TOBACCO USER . [facility] Mar 22, 2002 02:[address] [facility] Sep 21, 2001 02:00 PM CURRENT TOBACCO USER . [facility] Sep 21, 2001 02:00 PM TOBACCO USE . [facility] May 17, 2001 02:30 PM CURRENT TOBACCO USER . [facility] May 17, 2001 02:30 PM TOBACCO USE . [facility] Jan 17, 2001 02:10 PM CURRENT TOBACCO USER . [facility] Jan 17, 2001 02:10 PM TOBACCO USE [facility] Advance Directives: All historical and current Section Date Range: From patient's date of to the date document was created. This section includes ALL of a patient's completed or amended [place] Advance and Rescinded Directives. The entries below indicate that a directive exists for the patient, but an actual copy is not included with this document. The data comes from all [facility]. Date Advance Directives Provider Source Feb 08, 2023 ADVANCE DIRECTIVE DMITRIY WEBB [facility] Jun 30, 2007 ADVANCE DIRECTIVE SANTIAGO WALLER [facility] Radiology Reports: +/- 30 days of [...] the Encounter. The data comes from all [place] treatment facilities. Date/Time Radiology Report Provider Source May 01, 2024 11:38 AM US RENAL COMPLETE: CATHERINE FAUST JR [id number] -[id number] M Exm Date: MAY 01, 2024@11:38 Req Phys: IBETHJOSEMANOLO Haleigh Loc: [facility] C[facility] PACT 7 PCP (Req' Img Loc: [facility]UL[facility]OUND [facility] Service: Unknown [facility] [address] [place] [address] (Case [id number] COMPLETE) US RENAL COMPLETE (US Detailed) CPT:08906 Reason for Study: 78yo male with BPH with LUTS, needing US kidney/bladder Clinical History: Report Status: Verified Date Reported: MAY 01, 2024 Date Verified: MAY 01, 2024 Inside Phone Sales E-Sig:/ES/ORLANDO PEDERSON Report: Report number: [id number] EXAMINATION: Renal sonogram HISTORY: 78yo male with [...] of a solid renal mass. Dictated by Ronaldo Hoskins M.D. I, Orlando Pederson, have reviewed the images and report and concur with these findings. Primary Interpreting Staff: ORLANDO PEDERSON MD (Inside Phone Sales) Primary Interpreting Resident: Resident [place] [facility] Encounter Notes: All associated encounter notes This section contains the clinical notes associated to the Encounter. Date/Time Encounter Note(s) Provider Source May 15, 2024 01:35 PM PRIMARY CARE NOTE: LOCAL TITLE: PRIMARY CARE PROVIDER ESTABLISHED VISIT ST STANDARD TITLE: PRIMARY CARE NOTE DATE OF NOTE: MAY 15, 2024@13:35 ENTRY DATE: MAY 15, 2024@13:35:20 AUTHOR: MANOLO FRANCISCO COSIGNER: URGENCY: STATUS: COMPLETED Patient is 78 and BLACK OR Self Identified Gender - Man Reason for visit:Unscheduled follow-up Chief Complaint: 78yo male here for f/u visit, last visit Dec 2023 by [facility]. NonVA Providers: Dr Bubba Mari- PCP- [facility]) Dr. Escobedo (UROLOGIST- [facility]) [facility] History of Present Illness: Hx of BPH with LUTS, recent visit with [place] [facility]. --has cysto scheduled for next month and had tamsulosin increased to 0.8mcg. --he reports issues with emptying bladder. Hx of parkinson's dz, seeing nonVA Neurology. Reports medications listed below are the same. --per last note, they advised PT, but he has so far declined referral. Problem List: 1) Low back pain 2) Impotence of Psychogenic Origin 3) HLD - Hyperlipidaemia 4) Gastroesophageal reflux disease 5) Chest Pain 6) Abdominal Pain of the Left Upper Quadrant (ICD-9-CM 789.02) 7) Colonic Polyps (ICD-9-CM 211.3) 8) Impaired FASTING Glucose 9) Parkinsonism 10) DD - Diverticular disease 11) Debility 12) Transient ischemic attack 13) Benign prostatic hyperplasia Social History: NICOTINE: quit 30 years ago ILLICIT DRUGS: none ALCOHOL: none EXERCISE/DIET: house and yard work MARITAL STATUS: , in wheelchair Medication Review: The essential med list for review which includes the patient's active VA prescriptions and if applicable, remote VA prescriptions, non-VA prescriptions, and discontinued VA prescriptions within the last 90 days and known allergies including local and remote allergies have been reviewed. Allergies:SIMVASTATIN, SULFA DRUGS Active and Recently Outpatient Medications (excluding Supplies): Active Outpatient Medications Status 1) TAMSULOSIN HCL 0.4MG CAP TAKE TWO CAPSULES BY MOUTH EVERY ACTIVE EVENING APPROXIMATELY 30 MINUTES AFTER THE SAME MEAL EACH DAY Indication: FOR BENIGN PROSTATIC HYPERPLASIA Active Non-VA Medications Status 1) Non-VA AMITRIPTYLINE [...] ACTIVE Indication: FOR PARKINSON DISEASE 10) Non-VA TIZANIDINE HCL 4MG TAB 2MG BY MOUTH AT BEDTIME ACTIVE Indication: FOR SPASTICITY 11 Total Medications Physical Exam VITALS (most recent, as listed in the electronic record): B/P: 130/78 (05/15/2024 13:01) Pulse: 74 (05/15/2024 12:52) Temperature: 98.3 F [36.8 C] (05/15/2024 12:52) Weight: 197.2 lb [89.45 kg] (05/15/2024 12:52) Height: 68 in [172.7 cm] (05/15/2024 12:52) BMI: 30.0 Pain: 5 (05/15/2024 12:52) (0-10 scale) General: WD, WN in NAD, pleasant affect Skin: no lesions or rashes noted. Neck: Supple. Lungs: CTA bilat, no W/R/R Heart: RRR, nl S1/S2, no murmurs. Abdomen: Soft, No HSM or masses palpated, mild diffuse tenderness . Assessment/Plan: 1) BPH with luts: now seeing [place] Urology. --tamsulosin increased to 0.8mcg at recent visit, reports no change in sx at this time. --discussed planned cysto for further evaluation and to help guide treatment. --continue current care. 2) Parkinson's: seeing nonVA neurology. --reports continues to use meds as above. --discussed referral for PT at the [place], home or in clinic, he declines at this time. 3) HLD: continues to use atorvastatin 40mg --labs monitored by nonVA PCP. --cont current treatment. 4) low back pain: --chronic/stable --using elavil and meloxicam --cont current treatment 5) GERD: cont omeprazole daily RTC: 1 year Time spent on date of visit including face to face time, data review, and chartin min CLINICAL REMINDERS COMPLETED Sexual Orientation - CP,L,N,P,PH,PS,S,U: The patient thinks of their sexual orientation as: Straight or Heterosexual Follow-Up Pos PTSD/Depression - M,P,PH,PS,R,S,T: I have reviewed the results of the Mental Health screens and have evaluated the patient. Based on the evaluation, the following disposition plan will be implemented: Patient declines further intervention or evaluation at this time. Contact information and instructions for accessing emergency services provided. [facility] DIGITAL DIVIDE CAPABILITY REMINDER: Patient is not interested in [facility] at this time. 'S RIGHT TO DECLINE STATEMENT understands they have the right to decline the use of Telehealth Technology at any time without adverse affects on their continued access to healthcare. /alena/ MANOLO FRANCISCO Staff Physician Signed: 05/15/2024 14:01 MANOLO FRANCISCO [facility] May 15, 2024 12:54 PM NURSING NOTE: LOCAL TITLE: V15 PACT FACE TO FACE NOTE ST STANDARD TITLE: NURSING NOTE DATE OF NOTE: MAY 15, 2024@12:54 ENTRY DATE: MAY 15, 2024@12:54:25 AUTHOR: KIMBERLY FREEMAN COSIGNER: URGENCY: STATUS: COMPLETED Provider Visit: Patient Identifiers : Full Name Date of Reason for visit: Established Follow-Up Mode of Arrival: Wheelchair Allergy Review: SIMVASTATIN, SULFA DRUGS Allergy list reviewed and remains current. Recent Vital Signs: Temperature: 98.3 F [36.8 C] (05/15/2024 12:52) Pulse: 74 (05/15/2024 12:52) Respiration: 18 (05/15/2024 12:52) B/P: 149/83 (05/15/2024 12:52) Pain: 5 (05/15/2024 12:52) Wt: 197.2 lb [89.45 kg] (05/15/2024 12:52) Ht: 68 in [172.7 cm] (05/15/2024 12:52) BMI: 30.0 POX: 98% (05/15/2024 12:52) PERSONAL HEALTH INVENTORY Notes: No data available for PHI note titles PERSONAL HEALTH INVENTORY - MAP: No data available for PHI MAP What matters most to you in your life right now? - [place]'s Response: my health Would you like to discuss any personal problem, family problem, alcohol use, drug use, or a mental or emotional illness? No Contact provided Primary Care phone number and encouraged to call if any questions or concerns. Review that after hours nurse line [phone] and emergency room are available 26/10 for patient use. Contact verbalized good understanding. Suicide Screen - V: C-SSRS Screening [place] Suicide Severity Rating Scale (C-SSRS) screener 1. Over the past month, have you wished you were or wished you could go to sleep and not wake up? No 2. Over the past month, have you had any actual thoughts of killing yourself? No 3. Over the past month, have you been thinking about how you might do this? Response not required due to responses to other questions. 4. Over the past month, have you had these thoughts and had some intention of acting on them? Response not required due to responses to other questions. 5. Over the past month, have you started to work out or worked out the details of how to kill yourself? Response not required due to responses to other questions. 6. If yes, at any time in the past month did you intend to carry out this plan? Response not required due to responses to other questions. 7. In your lifetime, have you ever done anything, started to do anything, or prepared to do anything to end your life (for example, collected pills, obtained a gun, gave away valuables, went to the roof but didn't jump)? No 8. If YES, was this within the past 3 months? Response not required due to responses to other questions. Toxic Exposure Screening - CP,DI,L,NS,P,PH,S,U: The [place]/caregiver was asked if they believe the experienced any toxic exposure(s), such as Airborne Hazards and Open Burn [place], [place] War related exposures, Agent [place], Radiation, contaminated water at [place] or other such exposures, while serving in the Armed Forces. has no concerns about toxic exposure(s) while serving in the Armed Forces. The Hoopa/caregiver was informed that we will continue to ask this screening question every 5 years. They can contact their provider/healthcare team if they have concerns about exposures and would like to be screened sooner. Printed information was offered and provided if desired. Alcohol Use Screen (AUDIT-C) - V: Alcohol Screen: SCREEN FOR ALCOHOL (AUDIT-C) An alcohol screening test (AUDIT-C) was negative (score=0). 1. How often did you have a drink containing alcohol in the past year? Consider a drink to be a 12 ounce can or bottle of regular beer, 8 ounces of malt liquor, a 5 ounce glass of table wine, or a 1.5 ounce shot of liquor (like scotch, gin, or vodka). Never 2. How many drinks containing alcohol did you have on a typical day when you were drinking in the past year? Response not required due to responses to other questions. 3. How often did you have six or more drinks on one occasion in the past year? Response not required due to responses to other questions. Depression Screening - V: Perform PHQ-2 A PHQ-2 screen was performed. The score was 3 which is a positive screen for depression. Over the past two weeks, how often have you been bothered by the following problems? 1. Little interest or pleasure in doing things Not at all 2. Feeling down, depressed, or hopeless Nearly every day Licensed Independent Provider notified of positive screen and need for follow-up. Name of provider notified: Dr Francisco Homelessness/Food Insecurity Screen - DI,L,N,P,PH,PS,S,U: In the past 2 months, have you been living in stable housing that you own, rent, or stay in as part of a household? Yes - Living in stable housing. Are you worried or concerned that in the next 2 months you may NOT have stable housing that you own, rent, or stay in as part of a household? No - Not worried about housing near future The [place] reports the following: Within the past 12 months, you worried whether your food would run out before you got money to buy more. Never true Within the past 12 months, the food you bought just didn't last and you didn't have money to get more. Never true Tobacco Use Screening - AT,DE,L,M,N,P,PH,PS,RT,S,U: The patient is a former cigarette smoker. Quit smoking GREATER THAN OR EQUAL to 15 years. The patient has never used other types of tobacco. COVID-19 Immunization - L,N,P,PH,U: Refused Pfizer Monovalent COVID-19 vaccine Immunization: COVID-19 (PFIZER), MRNA, LNP-S, PF, ROSA-SUCROSE, 30 MCG/0.3 ML (AGES 12+ YEARS) Refusal Reason: PATIENT DECISION Patient refuses all immunization(s) in the COVID-19 group Date Documented: 05/15/24 12:58 Influenza Immunization - L,N,P,PH,U: Deferral / Refusal The patient declines to receive the recommended dose of seasonal influenza vaccine. Immunization: INFLUENZA, UNSPECIFIED FORMULATION Refusal Reason: PATIENT DECISION Patient refuses all immunization(s) in the FLU group Date Documented: 05/15/24 12:58 Herpes Zoster (Shingles) Vaccine - L,N,P,PH,U: The patient declines to receive the recommended dose of zoster (shingles) vaccine. Immunization: ZOSTER RECOMBINANT Refusal Reason: PATIENT DECISION Patient refuses all immunization(s) in the ZOSTER group Date Documented: 05/15/24 12:58 Pneumococcal Conjugate Vaccine (PCV15/PCV20) - L,N,P,PH,U: Refuses PCV vaccine Immunization: PNEUMOCOCCAL CONJUGATE, UNSPECIFIED FORMULATION Refusal Reason: PATIENT DECISION Patient refuses all immunization(s) in the PneumoPCV group Date Documented: 05/15/24 12:59 /alena/ KIMBERLY FREEMAN LPN LICENSED PRACTIAL NURSE Signed: 05/15/2024 13:01 KIMBERLY FREEMAN [facility]
--- OUTSIDE RECORDS SUMMARY | 2024-07-21 20:28 | XMS_ITS | Patient Health Record ---
Author Organization [facility] Address [address] [place], [place] [id number] Care Team Providers Care Mold Washer Name Role Phone ADAM FABIAN Unavailable [phone] Bubba Mari Unavailable Unavailable Allergies No Known Allergies Reason For Referral No Information Medications Medication SIG (Take, Route, Frequency, Duration) Notes Start Date End Date Status Atorvastatin Calcium 40 MG 1 tablet Oral ly Once a day Active Meloxicam 7.5 MG 1 tablet Orally Once a day Active tiZANidine HCl 2 MG 1 capsule at bedtime as needed Orally Once a day Active rOPINIRole HCl 5 MG 1 tablet Orally Thre e times a day Active Linzess 72 MCG 1 capsule at least 3 0 minutes before the first meal of the day on an empty stomach Orally Once a day Active Tamsulosin HCl 0.4 MG 1 capsule Orally O nce a day Active Cyclobenzaprine Comfort Pac Active Timolol Maleate 0.5 % 1 drop into affect ed eye Ophthalmic Once a day Active Carbidopa 25 MG 1 tablet Orally Thre e times a day Active Immunizations Vaccine Route Administration Date Status Comme nts Influenza, high dose seasonal Unknown 05/28/2023 Refuse d Pneumococcal conjugate PCV 13 Unknown 05/28/2023 Refuse d Vital Signs Height-cm 172.72 cm 06/22/2024 Weight-kg 90.72 kg 06/22/2024 Height 68.00 in 06/22/2024 Weight 200 lbs 06/22/2024 BMI 30.41 kg/m2 06/22/2024 Encounters Encounter Location Date Provider Diagnosis [facility] [place] [address] [place], [place] [id number] 06/22/2024 ADAM FABIAN 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 ; Pain in right toe(s) M79.674 ; Pain in left toe(s) M79.675 and Unspecified atherosclerosis of [place] arteries of extremities, bilateral legs I70.203 [facility] [place] [address] [place] [id number] 07/30/2023 ADAM [place] 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 ; Pain in right toe(s) M79.674 ; Pain in left toe(s) M79.675 and Unspecified atherosclerosis of [place] arteries of extremities, bilateral legs I70.203 [facility] [place] [address] [place] [address] [id number] 10/14/2023 ADAM [place] 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 ; Pain in right toe(s) M79.674 ; Pain in left toe(s) M79.675 and Unspecified atherosclerosis of [place] arteries of extremities, bilateral legs I70.203 [facility] [place] [address] [place] [id number] 01/13/2024 ADAM [place] 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 ; Pain in right toe(s) M79.674 ; Pain in left toe(s) M79.675 and Unspecified atherosclerosis of [place] arteries of extremities, bilateral legs I70.203 [facility] [place] [address] [place] [address] [id number] 03/16/2024 ADAM [place] 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 ; Pain in right toe(s) M79.674 ; Pain in left toe(s) M79.675 and Unspecified atherosclerosis of [place] arteries of extremities, bilateral legs I70.203 Assessments Encounter Date Diagnosis (ICD Code) Assessment Notes Treatment Notes Treatment Clinical Notes Section Notes 07/30/2023 Fungal infection of nail (ICD-10 - B35.1) Nails 1-5 Bilateral were debrided extensively with nail nippers and emery board, reducing length and girth to pink healthy tissue with any subungual debris and necrotic tissue removed 10/14/2023 Fungal infection of nail (ICD-10 - B35.1) Nails 1-5 Bilateral were debrided extensively with nail nippers and emery board, reducing length and girth to pink healthy tissue with any subungual debris and necrotic tissue removed 01/13/2024 Fungal infection of nail (ICD-10 - B35.1) Nails 1-5 Bilateral were debrided extensively with nail nippers and emery board, reducing length and girth to pink healthy tissue with any subungual debris and necrotic tissue removed 03/16/2024 Fungal infection of nail (ICD-10 - B35.1) Nails 1-5 Bilateral were debrided extensively with nail nippers and emery board, reducing length and girth to pink healthy tissue with any subungual debris and necrotic tissue removed 06/22/2024 Fungal infection of nail (ICD-10 - B35.1) Nails 1-5 Bilateral were debrided extensively with nail nippers and emery board, reducing length and girth to pink healthy tissue with any subungual debris and necrotic tissue removed 06/22/2024 Pain in right toe(s) (ICD-10 - M79.674) 03/16/2024 Pain in right toe(s) (ICD-10 - M79.674) 01/13/2024 Pain in right toe(s) (ICD-10 - M79.674) 10/14/2023 Pain in right toe(s) (ICD-10 - M79.674) 07/30/2023 Pain in right toe(s) (ICD-10 - M79.674) 07/30/2023 Pain in left toe(s) (ICD-10 - M79.675) 10/14/2023 Pain in left toe(s) (ICD-10 - M79.675) 01/13/2024 Pain in left toe(s) (ICD-10 - M79.675) 03/16/2024 Pain in left toe(s) (ICD-10 - M79.675) 06/22/2024 Pain in left toe(s) (ICD-10 - M79.675) 06/22/2024 Unspecified atherosclerosis of [place] arteries of extremities, bilateral legs (ICD-10 - I70.203) 03/16/2024 Unspecified atherosclerosis of [place] arteries of extremities, bilateral legs (ICD-10 - I70.203) 01/13/2024 Unspecified atherosclerosis of [place] arteries of extremities, bilateral legs (ICD-10 - I70.203) 10/14/2023 Unspecified atherosclerosis of [place] arteries of extremities, bilateral legs (ICD-10 - I70.203) 07/30/2023 Unspecified atherosclerosis of [place] arteries of extremities, bilateral legs (ICD-10 - I70.203) Plan Of Treatment Next Appt Details Provider Name:ADAM MATHUR, 08/24/2024 01:20:00 PM, [address], [facility], [place], [place], [id number], Insurance Providers Payer Name Payer Address Payer Phone Subscriber Number Group Number Insured Name Patient Relationship to Insured Coverage Start Date Coverage End Date [facility] [address] [place], [place] [id number] [phone] [id number] CATHERINE FAUST Self - patient is the insured
--- NOTE | 2024-07-21 22:18 | PC.NURSE ---
fall alarm placed prior to pt placed in the bed.
--- OUTSIDE RECORDS SUMMARY | 2024-07-21 22:29 | XMS_ITS | Clinical Summary ---
Author Organization [facility] Address [address] [place] [address] Care Team Providers Care Leather Fitter Name Role Phone Bubba Mari MD Primary Care Provider [phone] Allergies Active Allergy Reactions Criticality Noted Date [...] Comments Blood Pressure 146/80 04/13/2024 11:28 AM [employer] PROFESS[employer] Pulse 72 04/13/2024 11:28 AM [employer] PROFESSOR Temperature 36.7 C (98.1 F) 04/13/2024 11:28 AM [employer] PROFESSOR Respiratory Rate 16 04/27/2023 2:54 PM [employer] PROFESSOR Oxygen Saturation 99% 04/13/2024 11:28 AM [employer] PROFESSOR Inhaled Oxygen Concentration - - Weight 89.5 kg (197 lb 4.8 oz) 04/13/2024 11:28 AM [employer] PROFESSOR Height 172.7 cm (5' 8 ) 04/13/2024 11:28 AM [employer] PROFESSOR Body Mass Index 30 04/13/2024 11:28 AM [employer] LIBRARY PROFESSOR Plan of Treatment Upcoming Encounters Date Type Department Care Team (Late st Contact Info) Description 09/05/2024 1:40 PM CDT Office Visit [facility] - [facility] [address], [address] [place] [address] Perfecto Marx MD [address] [place] [address] Health Maintenance Due Date Last Done Comments [...] or Tdap) 12/20/2023 12/19/2013, 05/17/2001 PHQ-2 (Physician [place]) 04/05/2024 12/02/2023 Meningococcal B Vaccine Aged Out No l onger eligible based on patient's age to complete this topic Meningococcal Vaccine Aged Out No anderson charly eligible based on patient's age to complete this topic RSV Immunizations Under 20 Months Aged Out No longer eligible b ased on patient's age to complete this topic Insurance [employer] [facility] Care Teams Leather Fitter Relationship Specialty Start Date End Date Bubba Mari MD [address] [place] [address] PCP - General FAMILY PRACTICE 12/02/23
--- OUTSIDE RECORDS SUMMARY | 2024-07-21 22:29 | XMS_ITS ---
Author Organization [facility] Care Team Providers Care Manager Customer Name Role Phone Bubba Mari Unavailable Unavailable Papo Eisenberg Unavailable Unavai lable Allergies and adverse reactions Code CodeSystem Substance Reaction Severity StartDate Concern Status 433199590 SNOMED CT Sulfa Antibiotics Skin react ion - finding (code- 650939605, SNOMED CT) Severe 10/08/2022 active Care Team Name Role Address Phone Organization Dates Bubba Mari PCP [address] [place], [address], [place] (Office): : [facility] 10/08/2022 - 10/23/2022 Papo Eisenberg Attending Physician [address], [place], [address], [place] (Office): [facility] 10/08/2022 - 10/23/2022 Mental Status Section Date Assessment Total Score Description 10/23/2022 BIMS 13 cognitively int act CAM 0 No delirium ind icated PHQ-9 15 moderately zeenat re depression 10/14/2022 BIMS 13 cognitively int act CAM 0 No delirium ind icated PHQ-9 15 moderately zeenat re depression Problems Problem # Description Date of onset Resolved Date Code CodeSystem Concern Status 1 ALTERED MENTAL STATUS, UNSPECIFIED [address] active 2 ATAXIA, UNSPECIFIED [address] active 3 BALANITIS 3 10/09/[address] completed 4 BENIGN PROSTATIC HYPERPLASIA WITH LOWER URINARY TRACT SYMPTOMS [address] active 5 CEREBRAL ATHEROSCLEROSIS [address] active 6 CONSTIPATION, UNSPECIFIED [address] active 7 CYST OF KIDNEY, ACQUIRED [address] active 8 DIVERTICULOSIS OF INTESTINE, PART UNSPECIFIED, WITHOUT PERFORATION OR ABSCESS WITHOUT BLEEDING [address] active 9 HYPERLIPIDEMIA, UNSPECIFIED [address] active 10 MUSCLE WEAKNESS (GENERALIZED) [address] active 11 OTHER ABNORMALITIES OF GAIT AND MOBILITY [address] active 12 OTHER FATIGUE [address] active 13 PARKINSON'S DISEASE [address] active 14 PERSONAL HISTORY OF OTHER (HEALED) PHYSICAL INJURY AND TRAUMA [address] active 15 POLYP OF COLON [address] active 16 SPONDYLOSIS WITHOUT MYELOPATHY OR RADICULOPATHY, LUMBAR REGION [address] active 17 TRANSIENT CEREBRAL ISCHEMIC ATTACK, UNSPECIFIED [address] active 18 UNSPECIFIED PROTEIN-CALORIE MALNUTRITION [address] active 19 VERTEBROGENIC LOW BACK PAIN [address] active Reason for Referral No Reasons for Referral Entered Social History Social History Observation Description Start Date End Date Code Code System Current Smoking Status Tobacco smoking consumption unknown 860833921 SNOMED CT Sex Assigned At Male 1945 36207-9 [facility] Vital Signs Code Code System Vitals Name Values and Units Timing Information 50205-1 [facility] Pain Level Value=0.0 10/23/2022 9279-1 [facility] Respiratory Rate Value=20.0 Units=/m in 10/21/2022 8462-4 [facility] Blood Pressure-Diastolic Value=78 Un its=mmHg 10/21/2022 8480-6 [facility] Blood Pressure-Systolic Kuvrd=452 Un its=mmHg 10/21/2022 8310-5 [facility] Body Temperature Value=97.8 Units= F 10/21/2022 8867-4 [facility] Heart rate Value=86.0 Units=/min 96613-2 [facility] O2 % BldC Oximetry Value=99.0 Units= % 10/21/2022 97079-5 [facility] Weight Eftir=620.0 Units=Lbs 8302-2 [facility] Height Value=68.0 Units=Inches 10/08/2022
--- OUTSIDE RECORDS SUMMARY | 2024-07-21 22:29 | XMS_ITS | Continuity of Care Document ---
Author Name [facility] Organization [facility] Care Team Providers Care Carpenter Ship Name Role Phone [facility] Unavailable Unavailable Problems Combined list of problems from Department of Defense and [facility] facilities. It does not include entries that were removed or entered in error. Problem Status Onset Date Problem Type Date of Resolution Comments Source Abdominal Pain of the Left Upper Quadrant (ICD-9-CM 789.02) Active Condition [facility] Benign prostatic hyperplasia Active Condition [facility] Chest Pain Active Condition [facility] Colonic Polyps (ICD-9-CM 211.3) Active Condition [facility] DD - Diverticular disease Active Condition [facility] Debility Active Condition [facility] Gastroesophageal reflux disease Active Condition [facility] HLD - Hyperlipidaemia Active Condition [facility] Impaired FASTING Glucose Active Condition [facility] Impotence of Psychogenic Origin Active Condition [facility] Low back pain Active Condition [facility] Parkinsonism Active Condition [facility] Transient ischemic attack Active Condition Feb 17, 2023 Entered By: MACKENZIE LEON Comment: 10/2022 [facility] Diagnosis: ICD-10-CM G20.C Parkinsonism, unspecified Active Diagnosis [facility] Diagnosis: ICD-10-CM N40.1 Benign prostatic hyperplasia with lower urinary tract symp Active Diagnosis [facility] Diagnosis: ICD-10-CM G45.9 Transient cerebral ischemic attack, unspecified Active Diagnosis [facility] Diagnosis: ICD-10-CM Z74.2 Need for assist at home & no house memb able to render care Active Diagnosis [facility] Diagnosis: ICD-10-CM Z74.09 Other reduced mobility Active Diagnosis [facility] Diagnosis: ICD-10-CM Z13.5 Encounter for screening for eye and ear disorders Active Diagnosis [facility] Diagnosis: ICD-10-CM R54 Age-related physical debility Active Diagnosis [facility] Diagnosis: ICD-10-CM M54.50 Low back pain, unspecified Active Diagnosis [facility] Medications Combined list of outpatient medications from [...] BEDTIME ORAL ACTIVE ALBERT BOOTH I 2013 [facility] AMITRIPTYLI NE HCL 50MG TAB TAKE ONE TABLET BY MOUTH AT BEDTIME ORAL ACTIVE DEPJACQUESLO,S UZABRUCEE 2023 [facility] ASPIRIN 81MG TAB,EC TAKE ONE TABLET BY MOUTH ONCE A DAY ORAL ACTIVE GAUTAM LEON 2004 [facility] ATORVASTATI N CA 80MG TAB TAKE ONE-HALF TABLET BY MOUTH EVERY EVENING ORAL ACTIVE DEPAULO,S UZANNE 2023 [facility] CARBIDOPA 10MG/LEVODO PA 100MG TAB TAKE 3 TABLETS BY MOUTH THREE TIMES A DAY FOR PARKINSO N DISEASE TAKE WITH FOOD ORAL ACTIVE 06/08/2025 [id number] DEPAULO,S UZANNE 2024 810 [facility] CARBIDOPA 10MG/LEVODO PA 100MG TAB TAKE TWO TABLETS BY MOUTH THREE TIMES A DAY ORAL ACTIVE ALBERT BOOTH I 2013 [facility] CARBIDOPA 25MG/LEVODO PA 100MG TAB,SA TAKE 1 TABLET BY MOUTH FOUR TIMES A DAY FOR PARKINSO N DISEASE DO NOT CRUSH OR CHEW ORAL ACTIVE 06/08/2025 [id number] 5 DEPAULO,S UZANNE 2024 360 [facility] CARBIDOPA 25MG/LEVODO PA 250MG TAB TAKE ONE TABLET BY MOUTH TWICE A DAY ORAL ACTIVE DEPAULO,S UZANNE 2023 [facility] HYDROPHILIC (EQV EUCERIN) CREAM,TOP APPLY LIGHTLY TO AFFECTED AREA(S) ONCE A DAY FOR DRY SKIN (EXTERNA L USE ONLY) TOPICA L ACTIVE 05/16/2025 [id number] DEPAULO,S UZANNE 2024 454 [facility] MELOXICAM 7.5MG TAB TAKE ONE TABLET BY MOUTH ONCE A DAY ORAL ACTIVE DEPAULO,S UZANNE 2023 [facility] OMEPRAZOLE 40MG CAP,EC TAKE 1 CAPSULE BY MOUTH EVERY MORNING BEFORE A MEAL ORAL ACTIVE DEPAULO,S UZANNE 2023 [facility] OXYBUTYNIN CL 5MG TAB TAKE ONE TABLET BY MOUTH THREE TIMES A DAY FOR OVERACTI VE BLADDER ORAL ACTIVE 09/13/2024 [id number] 5 Kanika TREJO A 2024 270 [facility] ROPINIROLE HCL 1MG TAB TAKE ONE TABLET BY MOUTH ONCE A DAY ORAL ACTIVE DEPAULO,S UZANNE 2023 [facility] TAMSULOSIN HCL 0.4MG CAP TAKE TWO CAPSULES BY MOUTH EVERY EVENING APPROXIM ATELY 30 MINUTES AFTER THE SAME MEAL EACH DAY ORAL ACTIVE 05/09/2025 [id number] CECILIO BOLAÑOS 2024 180 [facility] TIZANIDINE HCL 4MG TAB TAKE ONE-HALF TABLET BY MOUTH AT BEDTIME ORAL ACTIVE DEPAULO,S UZANNE 2023 [facility] Allergies, Adverse Reactions, Alerts Combined list of allergies from Department of Defense and Veterans Affairs facilities. It does not include entries that were removed or entered in error. Substance Category Reaction Severity Reaction type Status Date Reported Comments Source SIMVASTATIN Propensity to adverse reactions to drug (finding) MYALGIA, PAIN,JOINT active 5 [facility] SULFA DRUGS Propensity to adverse reactions to drug (finding) Urticaria active 3 [facility] Immunizations Combined list of available immunizations from the Department of Defense and Veterans Affairs facilities. Immunization Series Date Given Administered By Site Reaction Lot Number CVX Code Drug Title Vehicle Service Attendant Status Comments Source TDAP 2013 115 complet ed Left Deltoid [facility] INFLUENZA, UNSPECIFIED FORMULATION 2002 88 complet ed [facility] TD(ADULT) UNSPECIFIED FORMULATION 2001 139 complet ed [facility] Results Combined list of recent chemistry, hematology and other laboratory results from Department of Defense and Veterans Affairs, ranging from 15 months to all on record, depending upon the facility. Order Name Results Value Reference Range Date Interpretation Specimen Comments Source POC UA (STL-PB-M A) PROTEIN [MASS/VOLU ME] IN URINE BY TEST STRIP Negative mg/dL 06/12 Specimen Type: URINE Comment: Test Performed by: Markr Meter #: [id number] Ordering Provider: PENELOPE MORALES Report Released Date/Time: Jun 12, 2024 12:56 PM Reporting Lab: [address] [address] Performing Lab: [address] [address] [facility] POC UA (STL-PB-M A) HEMOGLOBIN [MASS/VOLU ME] IN URINE BY TEST STRIP Negative 06/12 Specimen Type: URINE Comment: Test Performed by: Markr Meter #: [id number] Ordering Provider: PENELOPE MORALES Report Released Date/Time: Jun 12, 2024 12:56 PM Reporting Lab: [address] [address] Performing Lab: [address] [address] [facility] POC UA (STL-PB-M A) LEUKOCYTES [PRESENCE] IN URINE Negative 06/12 Specimen Type: URINE Comment: Test Performed by: Markr Meter #: [id number] Ordering Provider: PENELOPE MORALES Report Released Date/Time: Jun 12, 2024 12:56 PM Reporting Lab: [address] [address] Performing Lab: [address] [address] [facility] POC UA (STL-PB-M A) COLOR OF URINE Yellow 06/12 Specimen Type: URINE Comment: Test Performed by: [id number] Meter #: [id number] Ordering Provider: PENELOPE MORALES Report Released Date/Time: Jun 12, 2024 12:56 PM Reporting Lab: [address] [address] Performing Lab: [place] [address] [facility] [address] [facility] POC UA (STL-PB-M A) SPECIFIC GRAVITY OF URINE 1.020 1.005 - 1.030 06/12 Specimen Type: URINE Comment: Test Performed by: [id number] Meter #: [id number] Ordering Provider: PENELOPE MORALES Report Released Date/Time: Jun 12, 2024 12:56 PM Reporting Lab: [address] [address] Performing Lab: [place] [address] [facility] [address] [facility] POC UA (STL-PB-M A) UROBILINOG EN [UNITS/VOL UME] IN URINE 0.2 {John 'U}/dL 0.1 - 1.0 06/12 Specimen Type: URINE Comment: Test Performed by: [id number] Meter #: [id number] Ordering Provider: PENELOPE MORALES Report Released Date/Time: Jun 12, 2024 12:56 PM Reporting Lab: [place] [address] [facility] [address] Performing Lab: [place] [address] [facility] [address] [facility] POC UA (STL-PB-M A) BILIRUBIN. TOTAL [PRESENCE] IN URINE Negative 06/12 Specimen Type: URINE Comment: Test Performed by: [id number] Meter #: [id number] Ordering Provider: PENELOPE MORALES Report Released Date/Time: Jun 12, 2024 12:56 PM Reporting Lab: [place] [address] [address] [facility] [address] Performing Lab: [place] [address] [facility] [address] [facility] POC UA (STL-PB-M A) KETONES [MASS/VOLU ME] IN URINE BY TEST STRIP Negative mg/dL 06/12 Specimen Type: URINE Comment: Test Performed by: [id number] Meter #: [id number] Ordering Provider: PENELOPE MORALES Report Released Date/Time: Jun 12, 2024 12:56 PM Reporting Lab: [place] [address] [address] [facility] [address] Performing Lab: [place] [address] [facility] [address] [facility] POC UA (STL-PB-M A) GLUCOSE [MASS/VOLU ME] IN URINE BY TEST STRIP Negative mg/dL 06/12 Specimen Type: URINE Comment: Test Performed by: [id number] Meter #: [id number] Ordering Provider: PENELOPE MORALES Report Released Date/Time: Jun 12, 2024 12:56 PM Reporting Lab: [place] [address] [facility] [address] Performing Lab: [place] [address] [address] [facility] [address] [facility] POC UA (STL-PB-M A) PH OF URINE 6.0 5.0 - 8.0 06/12 Specimen Type: URINE Comment: Test Performed by: [id number] Meter #: [id number] Ordering Provider: PENELOPE MORALES Report Released Date/Time: Jun 12, 2024 12:56 PM Reporting Lab: [place] [address] [address] [facility] [address] Performing Lab: [place] [address] [facility] [address] [facility] POC UA (STL-PB-M A) NITRITE [PRESENCE] IN URINE BY TEST STRIP Negative 06/12 Specimen Type: URINE Comment: Test Performed by: [id number] Meter #: [id number] Ordering Provider: PENELOPE MORALES Report Released Date/Time: Jun 12, 2024 12:56 PM Reporting Lab: [place] [address] [facility] [address] Performing Lab: [place] [address] [facility] [address] [facility] POC UA (STL-PB-M A) CLARITY OF URINE Clear 06/12 Specimen Type: URINE Comment: Test Performed by: [id number] Meter #: [id number] Ordering Provider: PENELOPE MORALES Report Released Date/Time: Jun 12, 2024 12:56 PM Reporting Lab: [place] [address] [facility] [address] Performing Lab: [place] [address] [facility] [address] [facility] URINALYSI S (STL-PB) COLOR OF URINE Yellow 04/06 Specimen Type: URINE No comment entered. Ordering Provider: JUANA STOLL Report Released Date/Time: Apr 04, 2024 01:59 PM Reporting Lab: [place] [address] [facility] [address] Performing Lab: [place] [address] [facility] [address] [facility] URINALYSI S (STL-PB) BILIRUBIN. TOTAL [PRESENCE] IN URINE BY TEST STRIP Negative mg/dL 04/06 Specimen Type: URINE No comment entered. Ordering Provider: JUANA STOLL Report Released Date/Time: Apr 04, 2024 01:59 PM Reporting Lab: [facility] [address] [facility] [address] Performing Lab: [facility] [address] [facility] [address] [facility] URINALYSI S (STL-PB) PH OF URINE BY TEST STRIP 6.0 5.0 - 8.0 04/06 Specimen Type: URINE No comment entered. Ordering Provider: JUANA STOLL Report Released Date/Time: Apr 04, 2024 01:59 PM Reporting Lab: [facility] [address] [facility] [address] Performing Lab: [facility] [address] [facility] [phone] URINALYSI S (STL-PB) APPEARANCE OF URINE Clear 04/06 Specimen Type: URINE No comment entered. Ordering Provider: JUANA STOLL Report Released Date/Time: Apr 04, 2024 01:59 PM Reporting Lab: [facility] [address] [facility] [address] Performing Lab: [facility] [address] [facility] [address] [facility] URINALYSI S (STL-PB) NITRITE [PRESENCE] IN URINE BY TEST STRIP Negative mg/dL 04/06 Specimen Type: URINE No comment entered. Ordering Provider: JUANA STOLL Report Released Date/Time: Apr 04, 2024 01:59 PM Reporting Lab: [facility] [address] [facility] [address] Performing Lab: [facility] [address] [facility] [address] [facility] URINALYSI S (STL-PB) GLUCOSE [MASS/VOLU ME] IN URINE BY TEST STRIP Normalmg /dL 04/06 Specimen Type: URINE No comment entered. Ordering Provider: JUANA STOLL Report Released Date/Time: Apr 04, 2024 01:59 PM Reporting Lab: [facility] [address] [place] [phone] Performing Lab: [facility] [address] [place] [phone] [facility] URINALYSI S (STL-PB) PROTEIN [MASS/VOLU ME] IN URINE BY TEST STRIP 10 mg/dL 04/06 H Specimen Type: URINE No comment entered. Ordering Provider: JUANA STOLL Report Released Date/Time: Apr 04, 2024 01:59 PM Reporting Lab: [facility] [address] [place] [phone] Performing Lab: [facility] [address] [place] [phone] [place] [address] URINALYSI S (STL-PB) URN.UROBIL INOGEN Normalmg /dL 04/06 Specimen Type: URINE No comment entered. Ordering Provider: JUANA STOLL Report Released Date/Time: Apr 04, 2024 01:59 PM Reporting Lab: [facility] [address] [place] [address] Performing Lab: [facility] [address] [place] [phone] [facility] URINALYSI S (STL-PB) HEMOGLOBIN [MASS/VOLU ME] IN URINE BY TEST STRIP Negative mg/dL 04/06 Specimen Type: URINE No comment entered. Ordering Provider: JUANA STOLL Report Released Date/Time: Apr 04, 2024 01:59 PM Reporting Lab: [facility] [address] [place] [phone] Performing Lab: [facility] [address] [place] [phone] [facility] URINALYSI S (STL-PB) KETONES [MASS/VOLU ME] IN URINE BY TEST STRIP 10 mg/dL 04/06 H Specimen Type: URINE No comment entered. Ordering Provider: JUANA STOLL Report Released Date/Time: Apr 04, 2024 01:59 PM Reporting Lab: [facility] [address] [facility] [address] Performing Lab: [facility] [address] [facility] [address] [facility] URINALYSI S (STL-PB) URN.LEUK.E ST. Negative mg/dL 04/06 Specimen Type: URINE No comment entered. Ordering Provider: JUANA STOLL Report Released Date/Time: Apr 04, 2024 01:59 PM Reporting Lab: [facility] [address] [place] [phone] Performing Lab: [facility] [address] [place] [phone] [facility] URINALYSI S (STL-PB) SPECIFIC GRAVITY OF URINE 1.028 04/06 Specimen Type: URINE No comment entered. Ordering Provider: JUANA STOLL Report Released Date/Time: Apr 04, 2024 01:59 PM Reporting Lab: [facility] [address] [place] [phone] Performing Lab: [facility] [address] [place] [phone] [facility] Vital Signs Combined list of inpatient and outpatient Vital Signs from Department of Defense and Veterans Affairs, ranging from 12 months to all on record, depending upon the facility. Vital Sign Value Date Comments Source SYSTOLIC BLOOD PRESSURE 149 05/15/2024 12:52:29 [facility] DIASTOLIC BLOOD PRESSURE 83 05/15/2024 12:52:29 [facility] PULSE OXIMETRY 98 05/15/2024 12:52:29 [facility] WEIGHT 197.2 05/15/2024 12:52:29 [facility] BMI 30 kg/m2 05/15/2024 12:52:29 [facility] PAIN 5 05/15/2024 12:52:29 [facility] HEIGHT 68 05/15/2024 12:52:29 [facility] TEMPERATURE 98.3 05/15/2024 12:52:29 STTamar [facility]ES [facility] PULSE 74 05/15/2024 12:52:29 STTamar [facility] RESPIRATION 18 05/15/2024 12:52:29 STTamar LEES [facility] SYSTOLIC BLOOD PRESSURE 139 05/08/2024 11:44:14 [facility] DIASTOLIC BLOOD PRESSURE 74 05/08/2024 11:44:14 [facility] PULSE OXIMETRY 93 05/08/2024 11:44:14 S [facility] TEMPERATURE 98.4 05/08/2024 11:44:14 [facility] PULSE 89 05/08/2024 11:44:14 Tamar Garcia [facility] RESPIRATION 18 05/08/2024 11:44:14 [facility] Encounters Combined list of: 1) Encounters from Department of [facility] Affairs facilities going backup to the last 18 months, not all VA inpatient encounters are included; 2) Encounters from the Department of [facility] facilities going backup to 280 months. Location Location Details Encounter Type Encounter Number Reason For Visit Attending Provider ADM Date DC Date Status Disposition Source [facility] Outpatient Encounter [id number] 01/28 [facility] Outpatient Encounter [id number] 02/02 [facility] N [facility] Outpatient Encounter [id number] 02/08 [facility] N [facility] Outpatient Encounter [id number] 02/09 [facility] Outpatient Encounter [id number] TERESA BARCLAYALBERT 02/16 [facility] OFFICE O/P EST HI 40-54 MIN [id number] Diagnos is: ICD-10- CM M54.50 Low back pain, unspeci fied MACKENZIE LEON 02/17 [facility] Outpatient Encounter [id number] 02/22 [facility] Outpatient Encounter [id number] 02/22 [facility] Outpatient Encounter [id number] JUSTEN MILLER 02/24 [facility] SELF CARE MNGMENT TRAINING [id number] Diagnos is: ICD-10- CM R54 Age-rel ated physica l eveit y AYDEN MAGALLANES 03/04 [facility] Outpatient Encounter [id number] 03/15 [facility] Outpatient Encounter [id number] 05/12 [facility] IMG RTA DETCJ/MNTR DS STAFF [id number] Diagnos is: ICD-10- CM Z13.5 Encount er for screeni ng for eye and ear disorde PRAMOD Garcia 05/[address] [facility] OFFICE O/P EST MOD 30 MIN [id number] Diagnos is: ICD-10- CM G20.C Makeda onism, unspeci fied JUANA STOLL 05/[address] [facility] HC PRO PHONE CALL 5-10 MIN [id number] Diagnos is: ICD-10- CM Z74.09 Other reduced mobilit y Juan JAMES 05/20 [facility] Outpatient Encounter [id number] Diagnos is: ICD-10- CM Z13.5 Encount er for screeni ng for eye and ear disorde MATT Dowell 05/20 [facility] Outpatient Encounter [id number] PRAMOD NARAYAN 05/20 [facility] Outpatient Encounter [id number] 06/07 [facility] WHEELCHAIR MNGMENT TRAINING [id number] Diagnos is: ICD-10- CM G20.C Makeda onism, unspeci fied IVETTE PITTMAN 07/14 [facility] Outpatient Encounter [id number] 08/01 [facility] Outpatient Encounter [id number] Juan ESCOBAR 08/08 [facility] Outpatient Encounter [id number] 08/16 [facility] HC PRO PHONE CALL 5-10 MIN [id number] Diagnos is: ICD-10- CM Z74.09 Other reduced mobilit y Juan JAMES KEI 08/16 [facility] Outpatient Encounter [id number] 08/17 [facility] Outpatient Encounter [id number] 08/23 [facility] Outpatient Encounter [id number] 11/03 [facility] HC PRO PHONE CALL 5-10 MIN [id number] Diagnos is: ICD-10- CM Z74.2 Need for assist at home and no house memb able to render care Juan JAMES 11/04 [facility] CASE MANAGEMENT [id number] Diagnos is: ICD-10- CM G20.C Makeda onism, unspeci fied GHISLAINE POSEY 11/09 [facility] Outpatient Encounter [id number] GHISLAINE POSEY 11/09 [facility] HC PRO PHONE CALL 5-10 MIN [id number] Diagnos is: ICD-10- CM G45.9 Transie nt cerebra l ischemi c attack, unspeci fied SMOOTH SULLIVAN 11/17 [facility] CASE MANAGEMENT [id number] Diagnos is: ICD-10- CM G20.C Makeda onism, unspeci fied GHISLAINE POSEY 12/14 [facility] Outpatient Encounter [id number] PEREZ HDEZMAXIMGHISLAINE Garcia 12/14 [facility] Outpatient Encounter [id number] 12/19 [facility] Outpatient Encounter [id number] 12/20 [facility] OFFICE O/P EST LOW 20 MIN [id number] Diagnos is: ICD-10- CM G20.C Makeda onism, unspeci fied JUANA STOLL 12/29 [facility] CASE MANAGEMENT [id number] Diagnos is: ICD-10- CM G20.C Makeda onism, unspeci fied PEREZ KETTYMAXIMGHISLAIEN Jose 12/30 [facility] Outpatient Encounter [id number] 01/11 [facility] Outpatient Encounter [id number] 01/18 [facility] Outpatient Encounter [id number] 01/18 [facility] Outpatient Encounter [id number] 01/30 [facility] Encounter [id number] 02/07 [facility] Outpatient Encounter [id number] 03/22 [facility] Outpatient Encounter [id number] 03/24 [facility] Outpatient Encounter [id number] 03/27 [facility] Outpatient Encounter [id number] GHISLAINE POSEY 04/11 [facility] Outpatient Encounter [id number] 05/01 [facility] OFFICE O/P EST LOW 20 MIN [id number] Diagnos is: ICD-10- CM G20.C Makeda onism, unspeci CASSIUS Lara IS J 05/08 [facility] Outpatient Encounter [id number] 05/09 [facility] OFFICE O/P EST MOD 30 MIN [id number] Diagnos is: ICD-10- CM N40.1 Benign prostat ic hyperpl jaciel with lower urinary tract symp JUANA STOLL 05/15 [facility] Outpatient Encounter [id number] 05/31 [facility] Out[facility] Encounter [id number] 06/06 [facility] Encounter [id number] 06/07 [facility] Out[facility] Encounter [id number] 06/12 [facility] O/P EST MOD 30 MIN [id number] Diagnos is: ICD-10- CM N40.1 Benign prostat ic hyperpl jaciel with lower urinary tract symp PENELOPE MORALES 06/12 [facility] Out[facility] Encounter [id number] 07/14 [facility] MANAGEMENT [id number] Diagnos is: ICD-10- CM G20.C Makeda onleah, kimoi GHISLAINE Ngo 07/18 [facility] Social History Combined list of available smoking, tobacco, and other social history from [facility] of Defense and [facility] facilities. Social History Type Response Date Comment [facility] e Tobacco smoking status NHIS VA-TOBACCO USE FORMER CIGARETTES 05/15/2024 STTamar N[facility]EEL [facility] History of tobacco use VA-TOBACCO NEVER USED OTHER TYPE 05/15/2024 STTamar NABEEL [facility] History of tobacco use VA-TOBACCO FORMER USER 02/17/2023 [facility] [place] [facility] History of tobacco use QUIT TOBACCO >7 YEARS AGO 12/19/2013 Tamar NABEEL [facility] History of tobacco use QUIT TOBACCO >7 YEARS AGO 09/02/2012 Tamar NABEEL [facility] History of tobacco use QUIT TOBACCO >7 YEARS AGO 02/03/2010 Tamar NABEEL [facility] History of tobacco use CURRENT TOBACCO USER 12/24/2008 Tamar Poon [facility] History of tobacco use QUIT TOBACCO IN THE LAST 12 MONTHS 12/12/2007 Tamar LEES [facility] History of tobacco use TOBACCO OFFERED STOP SMOKING CLINIC 06/30/2007 Tamar LEES [facility] History of tobacco use CURRENT TOBACCO USER 12/17/2006 Tamar Poon [facility] History of tobacco use CURRENT TOBACCO USER 06/04/2006 Tamar LEES [facility] History of tobacco use CURRENT TOBACCO USER 11/18/2005 [facility]ABEEL [facility] History of tobacco use CURRENT NON-TOBACCO USER-HX OF USE 05/19/2005 Tamar LEES [facility] History of tobacco use CURRENT TOBACCO USER 09/10/2004 Tamar Poon [facility] History of tobacco use CURRENT TOBACCO USER 06/10/2004 Tamar Poon [facility] History of tobacco use CURRENT TOBACCO USER 06/27/2003 Tamar LEES [facility] History of tobacco use CURRENT TOBACCO USER 01/24/2003 Tamar LEES [facility] History of tobacco use CURRENT TOBACCO USER 09/20/2002 Tamar Poon [facility] History of tobacco use CURRENT TOBACCO USER 03/22/2002 Tamar LEES [facility] History of tobacco use CURRENT TOBACCO USER 09/21/2001 Tamar LEES [facility] History of tobacco use CURRENT TOBACCO USER 05/17/2001 Tamar LEES [facility] History of tobacco use CURRENT TOBACCO USER 01/17/2001 [facility] NABEEL [facility] Plan of Care List of future care activities from [facility] facilities. Additional future care activities may be listed in the Assessment and Plan section. Date/Time Care Activity Care Activity Detail Facili ty 12/13/2024 AMBULATORY - SURGERY AMBULATORY - SURGERY [facility] Advance Directives List of completed, amended, or rescinded Advance Directives on record at [facility] facilities. An actual copy of the Directive is not included. Date Advance Directive Provider Source 02/08/2023 ADVANCE DIRECTIVE DMITRIY WEBB [facility] 06/30/2007 ADVANCE DIRECTIVE SANTIAGO WALLER Tamar [facility]
--- NOTE | 2024-07-21 23:10 | ED.GENADULT ---
HPI - General Adult General Chief complaint: Extremity Injury, Lower Stated complaint: glf x4d ago, right hip pain Time Seen by Provider: 07/21/24 22:21 History of Present Illness HPI narrative: Patient is an 79-year-old male who presents emergency department this evening complaining of right hip pain for the past 4 days. Patient states that he had a ground level fall at home while he was walking to the mailbox. Patient's daughter and son are present at bedside and they are upset with the patient as he knows that he is supposed to walk using his walker which he sometimes does not use. Patient states that this is the 1st time he is being evaluated for this injury. He admits that he has been ambulatory since the fall. Denies any additional injuries or concerns at this time. Related Data Home Medications ?Medication ?Instructions ?Recorded ?Confirmed ?Last Taken ?Type aspirin 81 mg tablet,delayed 81 mg PO Q48H 11/22/20 12/15/23 10/03/22 History release (Adult Aspirin Regimen) docusate sodium 50 mg capsule 50 mg PO Q48H 10/06/22 12/15/23 10/03/22 History timolol maleate 0.5 % eye drops 1 drp LEFT EYE DAILY 10/06/22 12/15/23 10/03/22 History cholecalciferol (vitamin D3) 125 125 mcg PO DAILY 01/24/24 Unknown History mcg (5,000 unit) capsule ferrous sulfate 325 mg (65 mg 325 mg PO DAILY 01/24/24 Unknown History iron) tablet (Feosol) multivitamin 1 tablet PO DAILY 01/24/24 Unknown History Allergies Allergy/AdvReac Type Severity Reaction Status Date / Time Sulfa (Sulfonamide Allergy Unknown HIVES Verified 07/21/24 20:25 Antibiotics) Review of Systems Review of Systems: All systems are reviewed and are negative unless stated otherwise in the HPI. [facility] Past Medical History Medical History Leg pain Shoulder pain Depressed Falls frequently Dizziness Elevated glucose Elevated bilirubin Screening for thyroid disorder Tinea unguium Lumbar spondylosis BMI 28.0-28.9,adult Abnormal MRI, lumbar spine Parkinsons disease Constipation Adenomatous polyp Abdominal pain Ataxia Screening for prostate cancer Surgical History Surgical History H/O knee surgery History of knee replacement procedure of left knee Family History Family History Sibling Cancer brain Hypertension Mother Family history of diabetes mellitus in first degree relative Cancer Father Cancer Unknown Family history of arthritis Family history of malignant neoplasm Sibling Brain tumor Malignant neoplasm of prostate Social History Social History Smoking status: Former smoker Second hand tobacco smoke exposure: Yes Alcohol intake: current Substance use: never Substance use type: does not use Do You Feel Safe in your Home?: Yes Lack of Transportation: No Lack of Food: Never True Current Housing: I Have Housing Concerned About Future Housing: No Difficulty Paying Gas/Electric Bills: No Difficulty Paying for Meds: No Currently Unemployed: No Education: High School Diploma/GED Difficulty w/ Childcare or Family Care: No Living arrangements: with family 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 Gender identity (if verbalized by the patient): Male Spiritual care concerns: No Agree to blood products: Yes Exam Narrative: General: Alert, awake, afebrile, in no acute distress. HEENT: PERRL, no rhinorrhea, no post nasal drip, oropharynx clear. Neck: Trachea midline, no JVD, no lymphadenopathy. Cardiovascular: Regular rate and rhythm, no murmurs, rubs or gallops, no peripheral edema. Respiratory: Clear to auscultation bilaterally, no tachypnea, no wheezing, no rhonchi, no rubs, no respiratory distress. Abdomen: Soft, nontender, nondistended, no rebound, no guarding, no peritoneal signs. Musculoskeletal: No joint swelling or deformity, normal muscle tone, intact bilateral hip flexions any extensions. Skin: No rashes or petechia, no signs of infection. Psychiatric: Alert and oriented, normal behavior and judgment for situation. Neurological: Alert and oriented to person, place, and time. Follows all commands. No focal deficits, speech is clear and fluent. Course Vital Signs Vital signs: Vital Signs Temperature 97.1 F L 07/21/24 20:25 Pulse Rate 101 H 07/21/24 20:25 Respiratory Rate 14 07/21/24 20:25 Blood Pressure 148/77 H 07/21/24 20:25 Pulse Oximetry 97 07/21/24 20:25 Oxygen Delivery Room Air 07/21/24 20:25 Temperature 97.1 F L 07/21/24 20:25 Pulse Rate 101 H 07/21/24 20:25 Respiratory Rate 14 07/21/24 20:25 Blood Pressure 148/77 H 07/21/24 20:25 Pulse Oximetry 97 07/21/24 20:25 Oxygen Delivery Room Air 07/21/24 20:25 Medical Decision Making MDM Narrative Medical decision making narrative: The patient was evaluated by myself in the emergency department. History is obtained from patient who is an independent historian and physical exam was performed. External medical records were reviewed at this time. Patient was administered 1 g of oral Tylenol for pain. Imaging studies obtained included right hip x-ray which was independently interpreted by me revealing: No acute osseous abnormality pelvis and right hip. CT of the right hip without IV contrast was also obtained at this time for additional evaluation of the patient's right hip joint and it was independently interpreted by me revealing: No acute fracture or dislocation. Differential diagnosis considerations include hip fracture versus dislocation, musculoskeletal injury. Comorbidities impacting this visit include none. I have evaluated and discussed social determinants of health with the patient that could potentially impact subsequent diagnosis and treatment plans. On repeat assessment of the patient, reevaluation revealed that the patient is doing well and is in no acute distress. Patient symptoms have improved since he arrived to our emergency department. Repeat vital signs were all reviewed and noted to be stable. Differential diagnosis and treatment plan were discussed with the patient at bedside. Patient agrees with discussion and after shared medical decision making agrees with discharge. All questions were answered to the patient's satisfaction. Patient will follow up with his PCP in 3-5 days. Patient was provided with strict return precautions and instructed to return to the emergency department if any new or worsening symptoms develop. The patient was discharged in stable condition. Vital Signs Vital Signs: Vital Signs Temperature 97.1 F L 07/21/24 20:25 Pulse Rate 101 H 07/21/24 20:25 Respiratory Rate 14 07/21/24 20:25 Blood Pressure 148/77 H 07/21/24 20:25 Pulse Oximetry 97 07/21/24 20:25 Oxygen Delivery Room Air 07/21/24 20:25 Temperature 97.1 F L 07/21/24 20:25 Pulse Rate 101 H 07/21/24 20:25 Respiratory Rate 14 07/21/24 20:25 Blood Pressure 148/77 H 07/21/24 20:25 Pulse Oximetry 97 07/21/24 20:25 Oxygen Delivery Room Air 07/21/24 20:25 Discharge Plan Discharge Clinical Impression: Fall from ground level, Acute pain of right hip Patient Disposition: Home Condition: Improved Instructions: Antibiotic Form, Fall Prevention (ED), Hip Pain (ED) Additional Instructions: Please follow-up with your family doctor within the next 3-5 days. Return emergency department if any new or worsening symptoms develop. Patient Language: Albanian Prescriptions: No Action aspirin [Adult Aspirin Regimen] 81 mg tablet,delayed release (DR/EC) 81 mg PO Q48H ferrous sulfate [Feosol] 325 mg (65 mg iron) tablet 325 mg PO DAILY cholecalciferol (vitamin D3) 125 mcg (5,000 unit) capsule 125 mcg PO DAILY multivitamin Tablet 1 tablet PO DAILY docusate sodium 50 mg Capsule 50 mg PO Q48H timolol maleate 0.5 % drops 1 drp LEFT EYE DAILY ropinirole 1 mg tablet 1 mg PO BID Qty: 180 3RF carbidopa-levodopa 10-100 mg tablet 1 tablet PO TID Qty: 20 0RF atorvastatin 40 mg tablet See Rx Instructions .ROUTE .COMPLEX Qty: 90 3RF Dose Instruction: TAKE 1 TABLET EVERY DAY Rx Instructions: TAKE 1 TABLET EVERY DAY tizanidine 2 mg tablet See Rx Instructions .ROUTE .COMPLEX Qty: 90 3RF Dose Instruction: TAKE 1 TABLET AT BEDTIME FOR MUSCLE SPASTICITY Rx Instructions: TAKE 1 TABLET AT BEDTIME FOR MUSCLE SPASTICITY amitriptyline 25 mg tablet 50 mg PO HS Qty: 180 1RF tamsulosin 0.4 mg capsule 0.4 mg PO DAILY Qty: 90 1RF duloxetine 60 mg capsule,delayed release(DR/EC) 60 mg PO DAILY Qty: 90 1RF meloxicam 7.5 mg tablet 7.5 mg PO DAILY Qty: 90 1RF omeprazole 40 mg capsule,delayed release(DR/EC) See Rx Instructions .ROUTE .COMPLEX Qty: 90 3RF Dose Instruction: TAKE 1 CAPSULE EVERY DAY Rx Instructions: TAKE 1 CAPSULE EVERY DAY carbidopa-levodopa 25-100 mg tablet 1 tablet PO TID Qty: 21 1RF Rx Instructions: short supply Follow-up/Referrals: Bubba Mari MD [Primary Care Provider] - 3 Days Time of Disposition: 23:14
[2024-07-21] MEDS: ACETAMINOPHEN 500 MG TABLET 1000 MG PO (23:20)
[2024-07-22 00:01] VITALS: BP 161/85; PULSE 102; RESP 26; O2SAT 97
[2024-07-22 01:51] VITALS: BP 153/83; PULSE 98; RESP 24; O2SAT 97
== END 2024-07-22 01:07 | disposition home or self-care (01) ==
PROVIDERS: Emergency Provider Emergency Medicine; PCP Family Medicine
DX: S79.911A Unspecified injury of right hip, initial encounter (principal); G20.A1 Parkinson's disease without dyskinesia, without mention of fluctuations; Z96.652 Presence of left artificial knee joint; Z86.0101 Personal history of adenomatous and serrated colon polyps; Z87.891 Personal history of nicotine dependence; Z79.82 Long term (current) use of aspirin; Z79.899 Other long term (current) drug therapy; W18.30XA Fall on same level, unspecified, initial encounter
CPT/HCPCS: 73502; 73700; 99284; A9270

== ENCOUNTER 2024-07-26 21:10 | Emergency (ER) | payer MEDICARE, SELFPAY ==
--- NOTE | ~2024-07-26 | CT_ITS ---
CT of the Abdomen and Pelvis: Indication: Abdominal pain Technique: 2.5 mm axial scans were obtained through the abdomen and pelvis following intravenous adm inistration of 100 cc of Omnipaque 350. Dose reduction technique was used on this scan by utilizing a utomated exposure control and iterative reconstruction technique. The dose-length product (DLP) was 1 195.32 mGy-cm. Findings: Scans through the lung bases are unremarkable. The liver, spleen, pancreas, gallbladder, adrenals and kidneys are within normal limits. There are at herosclerotic calcifications of the aorta. No lymphadenopathy. No bowel obstruction or bowel wall thickening. There is no evidence to suggest acute appendicitis. Images through the pelvis were performed. Probable tiny layering urinary bladder stone. No pelvic mas s seen. No ascites. Impression: No acute abnormalities seen. Reviewed, dictated and finalized at location . Impression: No acute abnormalities seen.
--- NOTE | ~2024-07-26 | CT_ITS ---
History: Fall PROCEDURE: CT head without contrast. COMPARISON: 10/05/2022 TECHNIQUE: Axial imaging of the head performed from the skull base to the vertex without IV contrast. Sagittal a nd coronal reformations obtained. DLP: 681 mGy-cm FINDINGS: The ventricles are enlarged. The dilatation of the ventricles is proportional to the degree of sulcal prominence, not uncommon in the senescent brain. Decreased attenuation is identified within the periventricular white matter, likely secondary to micr ovascular ischemic disease, in a patient of this age. There is no mass, mass effect or midline shift. There is no abnormal extra-axial fluid collection or intracranial hemorrhage. Visualized paranasal sinuses are clear. The mastoid air cells are well aerated. No acute displaced fractures within the overlying cranium. Impression: No acute intracranial hemorrhage or suspicious mass effect. Reviewed, dictated and finalized at location A. Impression: No acute intracranial hemorrhage or suspicious mass effect.
--- NOTE | ~2024-07-26 | XR_ITS ---
HISTORY: falls, knee pain COMPARISON: None TECHNIQUE: 4 views of the right knee were performed FINDINGS: No acute or subacute fracture, erosion, lytic or sclerotic lesion. Significant medial tibiofemoral joint space narrowing is identified. No suprapatellar joint effusion is identified. The infrapatellar joint space is clear. IMPRESSION: Degenerative disease without acute fracture. Reviewed, dictated and finalized at location A.
--- NOTE | ~2024-07-26 | CT_ITS ---
History: Fall PROCEDURE: CT cervical spine without intravenous contrast. COMPARISON: None TECHNIQUE: Multiple contiguous axial images of the cervical spine were performed without the administration of i ntravenous contrast. DLP: 361 mGy-cm FINDINGS: Straightening and slight reversal of the normal curvature of the cervical spine is identified, likely muscular in origin. Degenerative disease is noted, with osteophyte formation, disc space narrowing, endplate changes and vacuum phenomena. Facet arthropathy is also noted. No acute fractures are present. The bilateral lung apices demonstrate panlobular emphysematous disease. No soft tissue abnormality is present. The airway is patent. Impression: Straightening and slight reversal of the normal curvature of the cervical spine, likely muscular in o rigin. Severe degenerative disease, without acute fracture. Reviewed, dictated and finalized at location A. Impression: Straightening and slight reversal of the normal curvature of the cervical spine , likely muscular in origin. Severe degenerative disease, without acute fracture.
--- NOTE | ~2024-07-26 | XR_ITS ---
CHEST RADIOGRAPH CLINICAL HISTORY: weak, frequent falls . COMPARISON: 10/05/2022 TECHNIQUE: Single portable view of the chest. FINDINGS The cardiomediastinal silhouette is unremarkable. Multiple metallic fragments redemonstrated projecting over the right lower lobe. The lungs are clear. IMPRESSION: No focal infiltrate or effusion. Reviewed, dictated and finalized at location A.
--- NOTE | ~2024-07-26 | XR_ITS ---
HISTORY: falls, knee pain COMPARISON: 01/25/2020 TECHNIQUE: 4 views of the left knee were performed FINDINGS: A total left knee arthroplasty is identified without patellar resurfacing. The tibial and femoral components are in good position. Trace extra-axial articular bone formation is present within the tibia. No periprosthetic fracture is noted. No acute or subacute fracture is appreciated. IMPRESSION: No periprosthetic fracture is appreciated. Reviewed, dictated and finalized at location A.
--- OUTSIDE RECORDS SUMMARY | 2024-07-26 21:13 | XMS_ITS ---
Author Organization [facility] Address [address] [facility] [address] [place], [place] [id number] Care Team Providers Care Pcts Name Role Phone ADAM CUMMINGS Unavailable [phone] Bubba Mari Unavailable Unavailable Allergies No Known [...] [facility] [address] [place], [place] [id number] 06/22/2024 ADAM CUMMINGS 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 ; Pain in right toe(s) M79.674 ; Pain in left toe(s) M79.675 and Unspecified atherosclerosis of [place] arteries of extremities, bilateral legs I70.203 Assessments [...] (ICD-10 - M79.675) 06/22/2024 Unspecified atherosclerosis of [place] arteries of extremities, bilateral legs (ICD-10 - [...] MATHUR, 08/24/2024 01:20:00 PM, [address], [address], [id number], Progress Notes * LOIS FAUSTOB:1945 ([age] yo M)Acc No.[id number]:06/22/2024 Patient: CATHERINE ARROYO Provider: Kanika Cummings DPM :1945 A ge:78 Y S ex:Male Date:06/22/2024 Address:[address] [place], [place] [id number] Subjective: * Chief Complaints: * 1 . [...] M79.675 4 . U nspecified atherosclerosis of [place] arteries of extremities, bilateral legs - I70.203 Plan: * Treatment: * Immunizations: Immunization record has been reviewed and updated. * Follow Up: 9 weeks * Billing Information: * Visit Code: 92083 Office Visit, Est Pt., Level 3. * Procedure Codes: * Electronic signature of ADAM CUMMINGS DPM on 07/26/2024 at 09:13 PM CDT Sign off status: Pending * Provider: Kanika Cummings DPM Date: 0 06/22/2024 Generated for Tree Lowery/Jenna on: 0 07/26/2024 09:13 PM CDT History and Physical Notes * [...]
--- OUTSIDE RECORDS SUMMARY | 2024-07-26 21:13 | XMS_ITS | Continuity of Care Document ---
Author Name [facility] Organization [facility] Care Team Providers Care Meat Washer Name Role Phone [facility] Unavailable Unavailable Problems Combined list of problems from Department of Defense and [facility] facilities. It does not include entries that were removed or entered in error. Problem Status Onset Date Problem Type Date of Resolution Comments Source Abdominal Pain of the Left Upper Quadrant (ICD-9-CM 789.02) Active Condition [facility] Benign prostatic hyperplasia Active Condition [facility] Chest Pain Active Condition [facility] Colonic Polyps (ICD-9-CM 211.3) Active Condition [facility] DD - Diverticular disease Active Condition [facility] Debility Active Condition [facility] Gastroesophageal reflux disease Active Condition [facility] HLD - Hyperlipidaemia Active Condition [facility] Impaired FASTING Glucose Active Condition [facility] Impotence of Psychogenic Origin Active Condition [facility] Low back pain Active Condition [facility] Parkinsonism Active Condition [facility] Transient ischemic attack Active Condition Feb 17, 2023 Entered By: MACKENZIE LEON Comment: 10/2022 [facility] Diagnosis: ICD-10-CM G20.C Parkinsonism, unspecified Active Diagnosis [facility] Diagnosis: ICD-10-CM N40.1 Benign prostatic hyperplasia with lower urinary tract symp Active Diagnosis [facility] Diagnosis: ICD-10-CM G45.9 Transient cerebral ischemic attack, unspecified Active Diagnosis [facility] Diagnosis: ICD-10-CM Z74.2 Need for assist at home & no house memb able to render care Active Diagnosis [facility] Diagnosis: ICD-10-CM Z74.09 Other reduced mobility Active Diagnosis [facility] Diagnosis: ICD-10-CM Z13.5 Encounter for screening for eye and ear disorders Active Diagnosis [facility] Diagnosis: ICD-10-CM R54 Age-related physical debility Active Diagnosis [facility] Diagnosis: ICD-10-CM M54.50 Low back pain, unspecified Active Diagnosis [facility] Medications Combined list of outpatient medications [...] BOOTH I 2013 [facility] AMITRIPTYLI NE HCL 50MG TAB TAKE ONE TABLET BY MOUTH AT BEDTIME ORAL ACTIVE DEPJACQUESLO,S UZABRUCEE 2023 [facility] ASPIRIN 81MG TAB,EC TAKE ONE TABLET BY MOUTH ONCE A DAY ORAL ACTIVE GAUTAM LEON 2004 [facility] ATORVASTATI N CA 80MG TAB TAKE ONE-HALF TABLET BY MOUTH EVERY EVENING ORAL ACTIVE DEPAULO,S UZANNE 2023 [facility] CARBIDOPA 10MG/LEVODO PA 100MG TAB TAKE 3 TABLETS BY MOUTH THREE TIMES A DAY FOR PARKINSO N DISEASE TAKE WITH FOOD ORAL ACTIVE 06/08/2025 [id number] DEPAULO,S UZANNE 2024 810 [facility] CARBIDOPA 10MG/LEVODO PA 100MG TAB TAKE TWO TABLETS BY MOUTH THREE TIMES A DAY ORAL ACTIVE ALBERT BOOTH I 2013 [facility] CARBIDOPA 25MG/LEVODO PA 100MG TAB,SA TAKE 1 TABLET BY MOUTH FOUR TIMES A DAY FOR PARKINSO N DISEASE DO NOT CRUSH OR CHEW ORAL ACTIVE 06/08/2025 [id number] 5 DEPAULO,S UZANNE 2024 360 [facility] CARBIDOPA 25MG/LEVODO PA 250MG TAB TAKE ONE TABLET BY MOUTH TWICE A DAY ORAL ACTIVE DEPAULO,S UZANNE 2023 [facility] HYDROPHILIC (EQV EUCERIN) CREAM,TOP APPLY LIGHTLY TO AFFECTED AREA(S) ONCE A DAY FOR DRY SKIN (EXTERNA L USE ONLY) TOPICA L ACTIVE 05/16/2025 [id number] 5 DEPAULO,S UZANNE 2024 454 [facility] MELOXICAM 7.5MG TAB TAKE ONE TABLET BY MOUTH ONCE A DAY ORAL ACTIVE DEPAULO,S UZANNE 2023 [facility] OMEPRAZOLE 40MG CAP,EC TAKE 1 CAPSULE BY MOUTH EVERY MORNING BEFORE A MEAL ORAL ACTIVE DEPAULO,S UZANNE 2023 [facility] OXYBUTYNIN CL 5MG TAB TAKE ONE TABLET BY MOUTH THREE TIMES A DAY FOR OVERACTI VE BLADDER ORAL ACTIVE 09/13/2024 [id number] Kanika TREJO A 2024 270 [facility] ROPINIROLE HCL 1MG TAB TAKE ONE TABLET BY MOUTH ONCE A DAY ORAL ACTIVE DEPAULO,S UZANNE 2023 [facility] TAMSULOSIN HCL 0.4MG CAP TAKE TWO CAPSULES BY MOUTH EVERY EVENING APPROXIM ATELY 30 MINUTES AFTER THE SAME MEAL EACH DAY ORAL ACTIVE 05/09/2025 [id number] 5 CECILIO BOLAÑOS 2024 180 [facility] TIZANIDINE HCL 4MG TAB TAKE ONE-HALF TABLET BY MOUTH AT BEDTIME ORAL ACTIVE DEPAULO,S UZANNE 2023 [facility] Allergies, Adverse Reactions, Alerts Combined list of allergies from Department of Defense and Veterans Affairs facilities. It does not include entries that were removed or entered in error. Substance Category Reaction Severity Reaction type Status Date Reported Comments Source SIMVASTATIN Propensity to adverse reactions to drug (finding) MYALGIA, PAIN,JOINT active 5 [facility] SULFA DRUGS Propensity to adverse reactions to drug (finding) Urticaria active 3 [facility] Immunizations Combined list of available immunizations from the Department of Defense and Veterans Affairs facilities. Immunization Series Date Given Administered By Site Reaction Lot Number CVX Code Drug Rehabilitation Aide/Scheduler Status Comments Source TDAP 2013 115 complet ed Left Deltoid [facility] INFLUENZA, UNSPECIFIED FORMULATION 2002 88 complet ed [facility] TD(ADULT) UNSPECIFIED FORMULATION 2001 139 complet ed [facility] Results Combined list of recent chemistry, hematology and other laboratory results from Department of Defense and Veterans Affairs, ranging from 15 months to all on record, depending upon the facility. Order Name Results Value Reference Range Date Interpretation Specimen Comments Source POC UA (STL-PB-M A) PROTEIN [MASS/VOLU ME] IN URINE BY TEST STRIP Negative mg/dL 06/12 Specimen Type: URINE Comment: Test Performed by: Parametric Meter #: [id number] Ordering Provider: PENELOPE MORALES Report Released Date/Time: Jun 12, 2024 12:56 PM Reporting Lab: [address] [address] Performing Lab: [address] [address] [facility] POC UA (STL-PB-M A) HEMOGLOBIN [MASS/VOLU ME] IN URINE BY TEST STRIP Negative 06/12 Specimen Type: URINE Comment: Test Performed by: Parametric Meter #: [id number] Ordering Provider: PENELOPE MORALES Report Released Date/Time: Jun 12, 2024 12:56 PM Reporting Lab: [address] [address] Performing Lab: [address] [address] [facility] POC UA (STL-PB-M A) LEUKOCYTES [PRESENCE] IN URINE Negative 06/12 Specimen Type: URINE Comment: Test Performed by: Parametric Meter #: [id number] Ordering Provider: PENELOPE MORALES Report Released Date/Time: Jun 12, 2024 12:56 PM Reporting Lab: [address] [address] Performing Lab: [address] [address] [facility] POC UA (STL-PB-M A) COLOR OF URINE Yellow 06/12 Specimen Type: URINE Comment: Test Performed by: [id number] Meter #: [id number] Ordering Provider: PENELOPE MORALES Report Released Date/Time: Jun 12, 2024 12:56 PM Reporting Lab: [address] [address] Performing Lab: [place] [address] [facility] [address] [facility] POC UA (STL-PB-M A) SPECIFIC GRAVITY OF URINE 1.020 1.005 - 1.030 06/12 Specimen Type: URINE Comment: Test Performed by: [id number] Meter #: [id number] Ordering Provider: PENELOPE MORALES Report Released Date/Time: Jun 12, 2024 12:56 PM Reporting Lab: [address] [address] Performing Lab: [place] [address] [facility] [address] [facility] POC UA (STL-PB-M A) UROBILINOG EN [UNITS/VOL UME] IN URINE 0.2 {John 'U}/dL 0.1 - 1.0 06/12 Specimen Type: URINE Comment: Test Performed by: [id number] Meter #: [id number] Ordering Provider: PENELOPE MORALES Report Released Date/Time: Jun 12, 2024 12:56 PM Reporting Lab: [place] [address] [facility] [address] Performing Lab: [place] [address] [facility] [address] [facility] POC UA (STL-PB-M A) BILIRUBIN. TOTAL [PRESENCE] IN URINE Negative 06/12 Specimen Type: URINE Comment: Test Performed by: [id number] Meter #: [id number] Ordering Provider: PENELOPE MORALES Report Released Date/Time: Jun 12, 2024 12:56 PM Reporting Lab: [place] [address] [address] [facility] [address] Performing Lab: [place] [address] [facility] [address] [facility] POC UA (STL-PB-M A) KETONES [MASS/VOLU ME] IN URINE BY TEST STRIP Negative mg/dL 06/12 Specimen Type: URINE Comment: Test Performed by: [id number] Meter #: [id number] Ordering Provider: PENELOPE MORALES Report Released Date/Time: Jun 12, 2024 12:56 PM Reporting Lab: [place] [address] [address] [facility] [address] Performing Lab: [place] [address] [facility] [address] [facility] POC UA (STL-PB-M A) GLUCOSE [MASS/VOLU ME] IN URINE BY TEST STRIP Negative mg/dL 06/12 Specimen Type: URINE Comment: Test Performed by: [id number] Meter #: [id number] Ordering Provider: PENELOPE MORALES Report Released Date/Time: Jun 12, 2024 12:56 PM Reporting Lab: [place] [address] [facility] [address] Performing Lab: [place] [address] [address] [facility] [address] [facility] POC UA (STL-PB-M A) PH OF URINE 6.0 5.0 - 8.0 06/12 Specimen Type: URINE Comment: Test Performed by: [id number] Meter #: [id number] Ordering Provider: PENELOPE MORALES Report Released Date/Time: Jun 12, 2024 12:56 PM Reporting Lab: [place] [address] [address] [facility] [address] Performing Lab: [place] [address] [facility] [address] [facility] POC UA (STL-PB-M A) NITRITE [PRESENCE] IN URINE BY TEST STRIP Negative 06/12 Specimen Type: URINE Comment: Test Performed by: [id number] Meter #: [id number] Ordering Provider: PENELOPE MORALES Report Released Date/Time: Jun 12, 2024 12:56 PM Reporting Lab: [place] [address] [facility] [address] Performing Lab: [place] [address] [facility] [address] [facility] POC UA (STL-PB-M A) CLARITY OF URINE Clear 06/12 Specimen Type: URINE Comment: Test Performed by: [id number] Meter #: [id number] Ordering Provider: PENELOPE MORALES Report Released Date/Time: Jun 12, 2024 12:56 PM Reporting Lab: [place] [address] [facility] [address] Performing Lab: [place] [address] [facility] [address] [facility] URINALYSI S (STL-PB) COLOR OF URINE Yellow 04/06 Specimen Type: URINE No comment entered. Ordering Provider: JUANA STOLL Report Released Date/Time: Apr 04, 2024 01:59 PM Reporting Lab: [place] [address] [facility] [address] Performing Lab: [place] [address] [facility] [address] [facility] URINALYSI S (STL-PB) BILIRUBIN. TOTAL [PRESENCE] IN URINE BY TEST STRIP Negative mg/dL 04/06 Specimen Type: URINE No comment entered. Ordering Provider: JUANA STOLL Report Released Date/Time: Apr 04, 2024 01:59 PM Reporting Lab: [facility] [address] [address] Performing Lab: [facility] [address] [address] [facility] URINALYSI S (STL-PB) PH OF URINE BY TEST STRIP 6.0 5.0 - 8.0 04/06 Specimen Type: URINE No comment entered. Ordering Provider: JUANA STOLL Report Released Date/Time: Apr 04, 2024 01:59 PM Reporting Lab: [facility] [address] [facility] [address] Performing Lab: [facility] [address] [phone] URINALYSI S (STL-PB) APPEARANCE OF URINE Clear 04/06 Specimen Type: URINE No comment entered. Ordering Provider: JUANA STOLL Report Released Date/Time: Apr 04, 2024 01:59 PM Reporting Lab: [facility] [address] [address] Performing Lab: [facility] [address] [address] [facility] URINALYSI S (STL-PB) NITRITE [PRESENCE] IN URINE BY TEST STRIP Negative mg/dL 04/06 Specimen Type: URINE No comment entered. Ordering Provider: JUANA STOLL Report Released Date/Time: Apr 04, 2024 01:59 PM Reporting Lab: [facility] [address] [address] Performing Lab: [facility] [address] [address] [facility] URINALYSI S (STL-PB) GLUCOSE [MASS/VOLU ME] IN URINE BY TEST STRIP Normalmg /dL 04/06 Specimen Type: URINE No comment entered. Ordering Provider: JUANA STOLL Report Released Date/Time: Apr 04, 2024 01:59 PM Reporting Lab: [facility] [address] [place] [phone] Performing Lab: [facility] [address] [place] [phone] [facility] URINALYSI S (STL-PB) PROTEIN [MASS/VOLU ME] IN URINE BY TEST STRIP 10 mg/dL 04/06 H Specimen Type: URINE No comment entered. Ordering Provider: JUANA STOLL Report Released Date/Time: Apr 04, 2024 01:59 PM Reporting Lab: [facility] [address] [place] [phone] Performing Lab: [facility] [address] [place] [phone] [place] [address] URINALYSI S (STL-PB) URN.UROBIL INOGEN Normalmg /dL 04/06 Specimen Type: URINE No comment entered. Ordering Provider: JUANA STOLL Report Released Date/Time: Apr 04, 2024 01:59 PM Reporting Lab: [facility] [address] [place] [phone] Performing Lab: [facility] [address] [place] [phone] [facility] URINALYSI S (STL-PB) HEMOGLOBIN [MASS/VOLU ME] IN URINE BY TEST STRIP Negative mg/dL 04/06 Specimen Type: URINE No comment entered. Ordering Provider: JUANA STOLL Report Released Date/Time: Apr 04, 2024 01:59 PM Reporting Lab: [facility] [address] [place] [phone] Performing Lab: [facility] [address] [place] [phone] [facility] URINALYSI S (STL-PB) KETONES [MASS/VOLU ME] IN URINE BY TEST STRIP 10 mg/dL 04/06 H Specimen Type: URINE No comment entered. Ordering Provider: JUANA STOLL Report Released Date/Time: Apr 04, 2024 01:59 PM Reporting Lab: [facility] [address] [facility] [address] Performing Lab: [facility] [address] [facility] [address] [facility] URINALYSI S (STL-PB) URN.LEUK.E ST. Negative mg/dL 04/06 Specimen Type: URINE No comment entered. Ordering Provider: JUANA STOLL Report Released Date/Time: Apr 04, 2024 01:59 PM Reporting Lab: [facility] [address] [place] [phone] Performing Lab: [facility] [address] [place] [phone] [facility] URINALYSI S (STL-PB) SPECIFIC GRAVITY OF URINE 1.028 04/06 Specimen Type: URINE No comment entered. Ordering Provider: JUANA STOLL Report Released Date/Time: Apr 04, 2024 01:59 PM Reporting Lab: [facility] [address] [place] [phone] Performing Lab: [facility] [address] [place] [phone] [facility] Vital Signs Combined list of inpatient and outpatient Vital Signs from Department of Defense and Veterans Affairs, ranging from 12 months to all on record, depending upon the facility. Vital Sign Value Date Comments Source SYSTOLIC BLOOD PRESSURE 149 05/15/2024 12:52:29 [facility] DIASTOLIC BLOOD PRESSURE 83 05/15/2024 12:52:29 [facility] PULSE OXIMETRY 98 05/15/2024 12:52:29 S [facility] WEIGHT 197.2 05/15/2024 12:52:29 [facility] BMI 30 kg/m2 05/15/2024 12:52:29 [facility] PAIN 5 05/15/2024 12:52:29 [facility] HEIGHT 68 05/15/2024 12:52:29 [facility] TEMPERATURE 98.3 05/15/2024 12:52:29 [facility] PULSE 74 05/15/2024 12:52:29 [facility] RESPIRATION 18 05/15/2024 12:52:29 [facility] SYSTOLIC BLOOD PRESSURE 139 05/08/2024 11:44:14 [facility] DIASTOLIC BLOOD PRESSURE 74 05/08/2024 11:44:14 [facility] PULSE OXIMETRY 93 05/08/2024 11:44:14 S [facility] TEMPERATURE 98.4 05/08/2024 11:44:14 [facility] PULSE 89 05/08/2024 11:44:14 Tamar Garcia [facility] RESPIRATION 18 05/08/2024 11:44:14 [facility] Encounters Combined list of: 1) Encounters from Department of [facility] Affairs facilities going backup to the last 18 months, not all VA inpatient encounters are included; 2) Encounters from the Department of [facility] facilities going backup to 280 months. Location Location Details Encounter Type Encounter Number Reason For Visit Attending Provider ADM Date DC Date Status Disposition Source [facility] Outpatient Encounter [id number] 01/28 [facility] Outpatient Encounter [id number] 02/02 [facility] N [facility] Outpatient Encounter [id number] 02/08 [facility] N [facility] Outpatient Encounter [id number] 02/09 [facility] N [facility] Outpatient Encounter [id number] TERESA BARCLAYALBERT 02/16 [facility] OFFICE O/P EST HI 40-54 MIN [id number] Diagnos is: ICD-10- CM M54.50 Low back pain, unspeci fied MACKENZIE LEON 02/17 [facility] Outpatient Encounter [id number] 02/22 [facility] Outpatient Encounter [id number] 02/22 [facility] Outpatient Encounter [id number] JUSTEN MILLER 02/24 [facility] SELF CARE MNGMENT TRAINING [id number] Diagnos is: ICD-10- CM R54 Age-rel ated physica l eveit y AYDEN MAGALLANES 03/04 [facility] Outpatient Encounter [id number] 03/15 [facility] Outpatient Encounter [id number] 05/12 [facility] IMG RTA DETCJ/MNTR DS STAFF [id number] Diagnos is: ICD-10- CM Z13.5 Encount er for screeni ng for eye and ear disorde PRAMOD Garcia 05/19 [facility] OFFICE O/P EST MOD 30 MIN [id number] Diagnos is: ICD-10- CM G20.C Makeda onism, unspeci fied JUANA STOLL 05/19 [facility] HC PRO PHONE CALL 5-10 MIN [id number] Diagnos is: ICD-10- CM Z74.09 Other reduced mobilit y Juan JAMES 05/20 [facility] Outpatient Encounter [id number] Diagnos is: ICD-10- CM Z13.5 Encount er for screeni ng for eye and ear disorde MATT Dowell 05/20 [facility] Outpatient Encounter [id number] PRAMOD NARAYAN 05/20 [facility] Outpatient Encounter [id number] 06/07 [facility] WHEELCHAIR MNGMENT TRAINING [id number] Diagnos is: ICD-10- CM G20.C Makeda onism, unspeci fied IVETTE PITTMAN 07/14 [facility] Outpatient Encounter [id number] 08/01 [facility] Outpatient Encounter [id number] Juan ESCOBAR 08/08 [facility] Outpatient Encounter [id number] 08/16 [facility] HC PRO PHONE CALL 5-10 MIN [id number] Diagnos is: ICD-10- CM Z74.09 Other reduced mobilit y Juan JAMES KEI 08/16 [facility] Outpatient Encounter [id number] 08/17 [facility] Outpatient Encounter [id number] 08/23 [facility] Outpatient Encounter [id number] 11/03 [facility] HC PRO PHONE CALL 5-10 MIN [id number] Diagnos is: ICD-10- CM Z74.2 Need for assist at home and no house memb able to render care Juan JAMES 11/04 [facility] CASE MANAGEMENT [id number] Diagnos is: ICD-10- CM G20.C Makeda onism, unspeci fied GHISLAINE POSEY 11/09 [facility] Outpatient Encounter [id number] GHISLAINE POSEY 11/09 [facility] HC PRO PHONE CALL 5-10 MIN [id number] Diagnos is: ICD-10- CM G45.9 Transie nt cerebra l ischemi c attack, unspeci fied SMOOTH SULLIVAN 11/17 [facility] CASE MANAGEMENT [id number] Diagnos is: ICD-10- CM G20.C Makeda onism, unspeci fied GHISLAINE POSEY 12/14 [facility] Outpatient Encounter [id number] PEREZ HDEZMAXIMGHISLAINE Garcia 12/14 [facility] Outpatient Encounter [id number] 12/19 [facility] Outpatient Encounter [id number] 12/20 [facility] OFFICE O/P EST LOW 20 MIN [id number] Diagnos is: ICD-10- CM G20.C Makeda onism, unspeci fied JUANA STOLL 12/29 [facility] CASE MANAGEMENT [id number] Diagnos is: ICD-10- CM G20.C Makeda onism, unspeci fied PEREZ KETTYMAXIMGHISLAINE Jose 12/30 [facility] Outpatient Encounter [id number] 01/11 [facility] Outpatient Encounter [id number] 01/18 [facility] Outpatient Encounter [id number] 01/18 [facility] Outpatient Encounter [id number] 01/30 [facility] En[facility] [id number] 02/07 [facility] Outpatient Encounter [id number] 03/22 [facility] Outpatient Encounter [id number] 03/24 [facility] Outpatient Encounter [id number] 03/27 [facility] Outpatient Encounter [id number] GHISLAINE POSEY 04/11 [facility] Outpatient Encounter [id number] 05/01 [facility] OFFICE O/P EST LOW 20 MIN [id number] Diagnos is: ICD-10- CM G20.C Makeda onism, unspeci CASSIUS Lara IS J 05/08 [facility] Outpatient Encounter [id number] 05/09 [facility] OFFICE O/P EST MOD 30 MIN [id number] Diagnos is: ICD-10- CM N40.1 Benign prostat ic hyperpl jaciel with lower urinary tract symp JUANA STOLL 05/15 [facility] Outpatient Encounter [id number] 05/31 [facility] Outpatient Encounter [id number] 06/06 [facility] Outpatient Encounter [id number] 06/07 [facility] Outpatient Encounter [id number] 9 06/12 [facility] OFFICE O/P EST MOD 30 MIN [id number] Diagnos is: ICD-10- CM N40.1 Benign prostat ic hyperpl jaciel with lower urinary tract symp PENELOPE MORALES 06/12 [facility] N [facility] Outpatient Encounter [id number] 07/14 [facility] CASE MANAGEMENT [id number] Diagnos is: ICD-10- CM G20.C Makeda onleah, kimoi GHISLAINE Ngo 07/18 [facility] Social History Combined list of available smoking, tobacco, and other social history from Department of Defense and Veterans Affairs facilities. Social History Type Response Date Comment [facility] e Tobacco smoking status NHIS VA-TOBACCO USE FORMER CIGARETTES 05/15/2024 [facility] History of tobacco use VA-TOBACCO NEVER USED OTHER TYPE 05/15/2024 [facility] History of tobacco use VA-TOBACCO FORMER USER 02/17/2023 [facility] [place] [facility] History of tobacco use QUIT TOBACCO >7 YEARS AGO 12/19/2013 Tam[facility] History of tobacco use QUIT TOBACCO >7 YEARS AGO 09/02/2012 Tam[facility] History of tobacco use QUIT TOBACCO >7 YEARS AGO 02/03/2010 Tam[facility] History of tobacco use CURRENT TOBACCO USER 12/24/2008 Tamar Poon [facility] History of tobacco use QUIT TOBACCO IN THE LAST 12 MONTHS 12/12/2007 [facility] History of tobacco use TOBACCO OFFERED STOP SMOKING CLINIC 06/30/2007 [facility] History of tobacco use CURRENT TOBACCO USER 12/17/2006 Tamar Poon [facility] History of tobacco use CURRENT TOBACCO USER 06/04/2006 Tamar LEES [facility] History of tobacco use CURRENT TOBACCO USER 11/18/2005 [facility] History of tobacco use CURRENT NON-TOBACCO USER-HX OF USE 05/19/2005 [facility] History of tobacco use CURRENT TOBACCO USER 09/10/2004 Tamar Poon [facility] History of tobacco use CURRENT TOBACCO USER 06/10/2004 Tamar Poon [facility] History of tobacco use CURRENT TOBACCO USER 06/27/2003 Tamar LEES [facility] History of tobacco use CURRENT TOBACCO USER 01/24/2003 Tamar LEES [facility] History of tobacco use CURRENT TOBACCO USER 09/20/2002 Tamar Poon [facility] History of tobacco use CURRENT TOBACCO USER 03/22/2002 Tamar LEES [facility] History of tobacco use CURRENT TOBACCO USER 09/21/2001 Tamar LEES [facility] History of tobacco use CURRENT TOBACCO USER 05/17/2001 Tamar LEES [facility] History of tobacco use CURRENT TOBACCO USER 01/17/2001 [facility] NABEEL [facility] Plan of Care List of future care activities from [facility] facilities. Additional future care activities may be listed in the Assessment and Plan section. Date/Time Care Activity Care Activity Detail Facili ty 12/13/2024 AMBULATORY - SURGERY AMBULATORY - SURGERY [facility] Advance Directives List of completed, amended, or rescinded Advance Directives on record at [facility] facilities. An actual copy of the Directive is not included. Date Advance Directive Provider Source 02/08/2023 ADVANCE DIRECTIVE DMITRIY WEBB [facility] 06/30/2007 ADVANCE DIRECTIVE SANTIAGO WALLER Tamar [facility]
--- OUTSIDE RECORDS SUMMARY | 2024-07-26 21:13 | XMS_ITS | Clinical Summary ---
Author Organization [facility] Address [address] [place] [address] Care Team Providers Care Dial Buffer Name Role Phone Bubba Mari MD Primary Care Provider [phone] Allergies Active Allergy Reactions Criticality Noted Date [...] Comments Blood Pressure 146/80 04/13/2024 11:28 AM IT BUSINESS ANALYST Pulse 72 04/13/2024 11:28 AM IT BUSINESS ANALYST Temperature 36.7 C (98.1 F) 04/13/2024 11:28 AM IT BUSINESS ANALYST Respiratory Rate 16 04/27/2023 2:54 PM IT BUSINESS ANALYST Oxygen Saturation 99% 04/13/2024 11:28 AM IT BUSINESS ANALYST Inhaled Oxygen Concentration - - Weight 89.5 kg (197 lb 4.8 oz) 04/13/2024 11:28 AM IT BUSINESS ANALYST Height 172.7 cm (5' 8 ) 04/13/2024 11:28 AM IT BUSINESS ANALYST Body Mass Index 30 04/13/2024 11:28 AM IT BUSINESS ANALYST Plan of Treatment Upcoming Encounters Date Type Department Care Team (Late st Contact Info) Description 09/05/2024 1:40 PM CDT Office Visit [facility] - [facility] [address] [facility], [address] [place] [address] Perfecto Marx MD [address] [place] [address] Health Maintenance Due Date Last Done Comments [...] or Tdap) 12/20/2023 12/19/2013, 05/17/2001 PHQ-2 (Physician Newell) 04/05/2024 12/02/2023 Meningococcal B Vaccine Aged Out No l onger eligible based on patient's age to complete this topic Meningococcal Vaccine Aged Out No anderson charly eligible based on patient's age to complete this topic RSV Immunizations Under 20 Months Aged Out No longer eligible b ased on patient's age to complete this topic Insurance [facility] Care Teams Dial Buffer Relationship Specialty Start Date End Date Bubba Mari MD [address] [id number] PCP - General FAMILY PRACTICE 12/02/23
--- OUTSIDE RECORDS SUMMARY | 2024-07-26 21:13 | XMS_ITS ---
Author Organization [facility] Address [address] [facility] [address] [place], [place] [id number] Care Team Providers Care Insights Strategist Name Role Phone ADAM CUMMINGS Unavailable [phone] Bubba Mari Unavailable Unavailable REASON FOR VISIT [...] Location Date Provider Diagnosis [facility] [place] [address] [place], [place] [id number] 01/13/2024 ADAM CUMMINGS 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 ; Pain in right toe(s) M79.674 ; Pain in left toe(s) M79.675 and Unspecified atherosclerosis of [place] arteries of extremities, bilateral legs I70.203 Assessments [...] (ICD-10 - M79.675) 01/13/2024 Unspecified atherosclerosis of [place] arteries of extremities, bilateral legs (ICD-10 - [...] MATHUR, 08/24/2024 01:20:00 PM, [address], [address], [id number], Progress Notes * LOIS FAUSTOB:1945 ([age] yo M)Acc No.[id number]:01/13/2024 Patient: CATHERINE ARROYO Provider: Kanika Cummings DPM :1945 A ge:78 Y S ex:Male Date:01/13/2024 Address:[address] [place], [place] [id number] Subjective: * Chief Complaints: * * General [...] M79.675 4 . U nspecified atherosclerosis of [place] arteries of extremities, bilateral legs - I70.203 Plan: * Treatment: * Procedure Codes: * Follow Up: 9 weeks * Billing Information: * Visit Code: 12817 Office Visit, Est Pt., Level 3. * Procedure Codes: * Sign off status: Completed true * Provider: Kanika Cummings DPM Date: Generated for Tree acevedo/Norah/Bereitting on: 0 07/26/2024 09:13 PM CDT History [...]
--- OUTSIDE RECORDS SUMMARY | 2024-07-26 21:13 | XMS_ITS | Patient Health Record ---
Author Organization [facility] Address [address] [place], [place] [id number] Care Team Providers Care Carpet Layer Helper Name Role Phone ADAM FABIAN Unavailable [phone] Bubba Mari Unavailable Unavailable Allergies No Known [...] Location Date Provider Diagnosis [facility] [place] [address] [place], [place] [phone] 06/22/2024 ADAM FABIAN 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 ; Pain in right toe(s) M79.674 ; Pain in left toe(s) M79.675 and Unspecified atherosclerosis of [place] arteries of extremities, bilateral legs I70.203 [facility] [place] [address] [place] [id number] 07/30/2023 ADAM [place] 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 ; Pain in right toe(s) M79.674 ; Pain in left toe(s) M79.675 and Unspecified atherosclerosis of [place] arteries of extremities, bilateral legs I70.203 [facility] [place] [address] [place] [id number] 10/14/2023 ADAM [place] 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 ; Pain in right toe(s) M79.674 ; Pain in left toe(s) M79.675 and Unspecified atherosclerosis of [place] arteries of extremities, bilateral legs I70.203 [facility] [place] [address] [place] [id number] 01/13/2024 ADAM [place] 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 ; Pain in right toe(s) M79.674 ; Pain in left toe(s) M79.675 and Unspecified atherosclerosis of [place] arteries of extremities, bilateral legs I70.203 [facility] [place] [address] [place] [id number] 03/16/2024 ADAM [place] 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 ; Pain in right toe(s) M79.674 ; Pain in left toe(s) M79.675 and Unspecified atherosclerosis of [place] arteries of extremities, bilateral legs I70.203 Assessments [...] (ICD-10 - M79.675) 06/22/2024 Unspecified atherosclerosis of [place] arteries of extremities, bilateral legs (ICD-10 - I70.203) 03/16/2024 Unspecified atherosclerosis of [place] arteries of extremities, bilateral legs (ICD-10 - I70.203) 01/13/2024 Unspecified atherosclerosis of [place] arteries of extremities, bilateral legs (ICD-10 - I70.203) 10/14/2023 Unspecified atherosclerosis of [place] arteries of extremities, bilateral legs (ICD-10 - I70.203) 07/30/2023 Unspecified atherosclerosis of [place] arteries of extremities, bilateral legs (ICD-10 - I70.203) Plan Of Treatment Next Appt Details Provider Name:ADAM MATHUR, 08/24/2024 01:20:00 PM, [address] [facility], [place], [place], [phone], Insurance Providers Payer Name Payer Address Payer Phone Subscriber Number Group Number Insured Name Patient Relationship to Insured Coverage Start Date Coverage End Date [facility] [address] [place], [place] [id number] CATHERINE FAUST Self - patient is the insured
[2024-07-26 21:18] VITALS: BP 120/49; PULSE 99; RESP 16; TEMP 36.2; O2SAT 99
[2024-07-26 21:44] VITALS: PULSE 89; O2SAT 98
[2024-07-26 21:46] VITALS: BP 157/85; PULSE 95; RESP 24; O2SAT 97
--- NOTE | 2024-07-26 22:05 | ECG_ITS ---
Test Date: 2024-07-26 22:30:30 Measurements Intervals Herminie Rate: 89 P: 44 TX: 135 QRS: 35 QRSD: 106 T: 39 QT: 365 QTc: 446 Interpretive Statements SINUS RHYTHM POSSIBLE LEFT ATRIAL ENLARGEMENT BORDERLINE ECG No previous ECG available for comparison Electronically Signed On 07-27-2024 05:22:46 CDT by Shahriar Esparza D.O.
--- OUTSIDE RECORDS SUMMARY | 2024-07-26 22:23 | XMS_ITS | Continuity of Care Document ---
Author Name [facility] Organization [facility] Care Team Providers Care Product Analyst Name Role Phone [facility] Unavailable Unavailable Problems Combined list of problems from Department of Defense and [facility] facilities. It does not include entries that were removed or entered in error. Problem Status Onset Date Problem Type Date of Resolution Comments Source Abdominal Pain of the Left Upper Quadrant (ICD-9-CM 789.02) Active Condition [facility] Benign prostatic hyperplasia Active Condition [facility] Chest Pain Active Condition [facility] Colonic Polyps (ICD-9-CM 211.3) [facility] - Diverticular disease Active Condition [facility] Debility Active Condition [facility] Gastroesophageal reflux disease Active Condition [facility] HLD - Hyperlipidaemia Active Condition [facility] Impaired FASTING Glucose Active Condition [facility] Impotence of Psychogenic Origin Active Condition [facility] Low back pain Active Condition [facility] Parkinsonism Active Condition [facility] Transient ischemic attack Active Condition Feb 17, 2023 Entered By: MACKENZIE LEON Comment: 10/2022 [facility] Diagnosis: ICD-10-CM G20.C Parkinsonism, unspecified Active Diagnosis [facility] Diagnosis: ICD-10-CM N40.1 Benign prostatic hyperplasia with lower urinary tract symp Active Diagnosis [facility] Diagnosis: ICD-10-CM G45.9 Transient cerebral ischemic attack, unspecified Active Diagnosis [facility] Diagnosis: ICD-10-CM Z74.2 Need for assist at home & no house memb able to render care Active Diagnosis [facility] Diagnosis: ICD-10-CM Z74.09 Other reduced mobility Active Diagnosis [facility] Diagnosis: ICD-10-CM Z13.5 Encounter for screening for eye and ear disorders Active [facility] Diagnosis: ICD-10-CM R54 Age-related physical debility Active Diagnosis [facility] Diagnosis: ICD-10-CM M54.50 Low back pain, unspecified Active Diagnosis [facility] Medications Combined list of outpatient medications [...] BEDTIME ORAL ACTIVE ALBERT BOOTH I 2013 [facility] AMITRIPTYLI NE HCL 50MG TAB TAKE ONE TABLET BY MOUTH AT BEDTIME ORAL ACTIVE DEPJACQUESLO,S UZABRUCEE 2023 [facility] ASPIRIN 81MG TAB,EC TAKE ONE TABLET BY MOUTH ONCE A DAY ORAL ACTIVE GAUTAM LEON 2004 [facility] ATORVASTATI N CA 80MG TAB TAKE ONE-HALF TABLET BY MOUTH EVERY EVENING ORAL ACTIVE DEPAULO,S UZANNE 2023 [facility] CARBIDOPA 10MG/LEVODO PA 100MG TAB TAKE 3 TABLETS BY MOUTH THREE TIMES A DAY FOR PARKINSO N DISEASE TAKE WITH FOOD ORAL ACTIVE 06/08/2025 [id number] DEPAULO,S UZANNE 2024 810 [facility] CARBIDOPA 10MG/LEVODO PA 100MG TAB TAKE TWO TABLETS BY MOUTH THREE TIMES A DAY ORAL ACTIVE ALBERT BOOTH I 2013 [facility] CARBIDOPA 25MG/LEVODO PA 100MG TAB,SA TAKE 1 TABLET BY MOUTH FOUR TIMES A DAY FOR PARKINSO N DISEASE DO NOT CRUSH OR CHEW ORAL ACTIVE 06/08/2025 [id number] DEPAULO,S UZANNE 2024 360 [facility] CARBIDOPA 25MG/LEVODO PA 250MG TAB TAKE ONE TABLET BY MOUTH TWICE A DAY ORAL ACTIVE DEPAULO,S UZANNE 2023 [facility] HYDROPHILIC (EQV EUCERIN) CREAM,TOP APPLY LIGHTLY TO AFFECTED AREA(S) ONCE A DAY FOR DRY SKIN (EXTERNA L USE ONLY) TOPICA L ACTIVE 05/16/2025 [id number] DEPAULO,S UZANNE 2024 454 [facility] MELOXICAM 7.5MG TAB TAKE ONE TABLET BY MOUTH ONCE A DAY ORAL ACTIVE DEPAULO,S UZANNE 2023 [facility] OMEPRAZOLE 40MG CAP,EC TAKE 1 CAPSULE BY MOUTH EVERY MORNING BEFORE A MEAL ORAL ACTIVE DEPAULO,S UZANNE 2023 [facility] OXYBUTYNIN CL 5MG TAB TAKE ONE TABLET BY MOUTH THREE TIMES A DAY FOR OVERACTI VE BLADDER ORAL ACTIVE 09/13/2024 [id number] 5 Kanika TREJO A 2024 270 [facility] ROPINIROLE HCL 1MG TAB TAKE ONE TABLET BY MOUTH ONCE A DAY ORAL ACTIVE DEPAULO,S UZANNE 2023 [facility] TAMSULOSIN HCL 0.4MG CAP TAKE TWO CAPSULES BY MOUTH EVERY EVENING APPROXIM ATELY 30 MINUTES AFTER THE SAME MEAL EACH DAY ORAL ACTIVE 05/09/2025 [id number] CECILIO BOLAÑOS 2024 180 [facility] N TIZANIDINE HCL 4MG TAB TAKE ONE-HALF TABLET BY MOUTH AT BEDTIME ORAL ACTIVE DEPAULO,S UZANNE 2023 [facility] Allergies, Adverse Reactions, Alerts Combined list of allergies from Department of Defense and [facility] facilities. It does not include entries that were removed or entered in error. Substance Category Reaction Severity Reaction type Status Date Reported Comments Source SIMVASTATIN Propensity to adverse reactions to drug (finding) MYALGIA, PAIN,JOINT active 5 [facility] SULFA DRUGS Propensity to adverse reactions to drug (finding) Urticaria active 3 [facility] Immunizations Combined list of available immunizations from the Department of Defense and Veterans Affairs facilities. Immunization Series Date Given Administered By Site Reaction Lot Number CVX Code Drug Porcelain Waxer Status Comments Source TDAP 2013 115 complet ed Left Deltoid [facility] INFLUENZA, UNSPECIFIED FORMULATION 2002 88 complet ed [facility] TD(ADULT) UNSPECIFIED FORMULATION 2001 139 complet ed [facility] Results Combined list of recent chemistry, hematology and other laboratory results from Department of Defense and Veterans Affairs, ranging from 15 months to all on record, depending upon the facility. Order Name Results Value Reference Range Date Interpretation Specimen Comments Source POC UA (STL-PB-M A) PROTEIN [MASS/VOLU ME] IN URINE BY TEST STRIP Negative mg/dL 06/12 Specimen Type: URINE Comment: Test Performed by: [employer] Meter #: [id number] Ordering Provider: PENELOPE MORALES Report Released Date/Time: Jun 12, 2024 12:56 PM Reporting Lab: [address] [address] Performing Lab: [address] [address] [facility] POC UA (STL-PB-M A) HEMOGLOBIN [MASS/VOLU ME] IN URINE BY TEST STRIP Negative 06/12 Specimen Type: URINE Comment: Test Performed by: [employer] Meter #: [id number] Ordering Provider: PENELOPE MORALES Report Released Date/Time: Jun 12, 2024 12:56 PM Reporting Lab: [address] [address] Performing Lab: [address] [address] [facility] POC UA (STL-PB-M A) LEUKOCYTES [PRESENCE] IN URINE Negative 06/12 Specimen Type: URINE Comment: Test Performed by: [employer] Meter #: [id number] Ordering Provider: PENELOPE MORALES Report Released Date/Time: Jun 12, 2024 12:56 PM Reporting Lab: [address] [address] Performing Lab: [address] [address] [facility] POC UA (STL-PB-M A) COLOR OF URINE Yellow 06/12 Specimen Type: URINE Comment: Test Performed by: [id number] Meter #: [id number] Ordering Provider: PENELOPE MORALES Report Released Date/Time: Jun 12, 2024 12:56 PM Reporting Lab: [address] [address] Performing Lab: [place] [address] [facility] [address] [facility] POC UA (STL-PB-M A) SPECIFIC GRAVITY OF URINE 1.020 1.005 - 1.030 06/12 Specimen Type: URINE Comment: Test Performed by: [id number] Meter #: [id number] Ordering Provider: PENELOPE MORALES Report Released Date/Time: Jun 12, 2024 12:56 PM Reporting Lab: [address] [address] Performing Lab: [place] [address] [facility] [address] [facility] POC UA (STL-PB-M A) UROBILINOG EN [UNITS/VOL UME] IN URINE 0.2 {John 'U}/dL 0.1 - 1.0 06/12 Specimen Type: URINE Comment: Test Performed by: [id number] Meter #: [id number] Ordering Provider: PENELOPE MORALES Report Released Date/Time: Jun 12, 2024 12:56 PM Reporting Lab: [place] [address] [facility] [address] Performing Lab: [place] [address] [facility] [address] [facility] POC UA (STL-PB-M A) BILIRUBIN. TOTAL [PRESENCE] IN URINE Negative 06/12 Specimen Type: URINE Comment: Test Performed by: [id number] Meter #: [id number] Ordering Provider: PENELOPE MORALES Report Released Date/Time: Jun 12, 2024 12:56 PM Reporting Lab: [place] [address] [facility] [address] Performing Lab: [place] [address] [facility] [address] [facility] POC UA (STL-PB-M A) KETONES [MASS/VOLU ME] IN URINE BY TEST STRIP Negative mg/dL 06/12 Specimen Type: URINE Comment: Test Performed by: [id number] Meter #: [id number] Ordering Provider: PENELOPE MORALES Report Released Date/Time: Jun 12, 2024 12:56 PM Reporting Lab: [place] [address] [address] [facility] [address] Performing Lab: [place] [address] [facility] [address] [facility] POC UA (STL-PB-M A) GLUCOSE [MASS/VOLU ME] IN URINE BY TEST STRIP Negative mg/dL 06/12 Specimen Type: URINE Comment: Test Performed by: [id number] Meter #: [id number] Ordering Provider: PENELOPE MORALES Report Released Date/Time: Jun 12, 2024 12:56 PM Reporting Lab: [place] [address] [facility] [address] Performing Lab: [place] [address] [address] [facility] [address] [facility] POC UA (STL-PB-M A) PH OF URINE 6.0 5.0 - 8.0 06/12 Specimen Type: URINE Comment: Test Performed by: [id number] Meter #: [id number] Ordering Provider: PENELOPE MORALES Report Released Date/Time: Jun 12, 2024 12:56 PM Reporting Lab: [place] [address] [address] [facility] [address] Performing Lab: [place] [address] [facility] [address] [facility] POC UA (STL-PB-M A) NITRITE [PRESENCE] IN URINE BY TEST STRIP Negative 06/12 Specimen Type: URINE Comment: Test Performed by: [id number] Meter #: [id number] Ordering Provider: PENELOPE MORALES Report Released Date/Time: Jun 12, 2024 12:56 PM Reporting Lab: [place] [address] [facility] [address] Performing Lab: [place] [address] [facility] [address] [facility] POC UA (STL-PB-M A) CLARITY OF URINE Clear 06/12 Specimen Type: URINE Comment: Test Performed by: [id number] Meter #: [id number] Ordering Provider: PENELOPE MORALES Report Released Date/Time: Jun 12, 2024 12:56 PM Reporting Lab: [place] [address] [facility] [address] Performing Lab: [place] [address] [facility] [address] [facility] URINALYSI S (STL-PB) COLOR OF URINE Yellow 04/06 Specimen Type: URINE No comment entered. Ordering Provider: JUANA STOLL Report Released Date/Time: Apr 04, 2024 01:59 PM Reporting Lab: [place] [address] [facility] [address] Performing Lab: [place] [address] [facility] [address] [facility] URINALYSI S (STL-PB) BILIRUBIN. TOTAL [PRESENCE] IN URINE BY TEST STRIP Negative mg/dL 04/06 Specimen Type: URINE No comment entered. Ordering Provider: JUANA STOLL Report Released Date/Time: Apr 04, 2024 01:59 PM Reporting Lab: [facility] [address] [address] Performing Lab: [facility] [address] [address] [facility] URINALYSI S (STL-PB) PH OF URINE BY TEST STRIP 6.0 5.0 - 8.0 04/06 Specimen Type: URINE No comment entered. Ordering Provider: JUANA STOLL Report Released Date/Time: Apr 04, 2024 01:59 PM Reporting Lab: [facility] [address] [address] Performing Lab: [facility] [address] [phone] URINALYSI S (STL-PB) APPEARANCE OF URINE Clear 04/06 Specimen Type: URINE No comment entered. Ordering Provider: JUANA STOLL Report Released Date/Time: Apr 04, 2024 01:59 PM Reporting Lab: [facility] [address] [address] Performing Lab: [facility] [address] [address] [facility] URINALYSI S (STL-PB) NITRITE [PRESENCE] IN URINE BY TEST STRIP Negative mg/dL 04/06 Specimen Type: URINE No comment entered. Ordering Provider: JUANA STOLL Report Released Date/Time: Apr 04, 2024 01:59 PM Reporting Lab: [facility] [address] [address] Performing Lab: [facility] [address] [address] [facility] URINALYSI S (STL-PB) GLUCOSE [MASS/VOLU ME] IN URINE BY TEST STRIP Normalmg /dL 04/06 Specimen Type: URINE No comment entered. Ordering Provider: JUANA STOLL Report Released Date/Time: Apr 04, 2024 01:59 PM Reporting Lab: [facility] [address] [place] [phone] Performing Lab: [facility] [address] [place] [phone] [facility] URINALYSI S (STL-PB) PROTEIN [MASS/VOLU ME] IN URINE BY TEST STRIP 10 mg/dL 04/06 H Specimen Type: URINE No comment entered. Ordering Provider: JUANA STOLL Report Released Date/Time: Apr 04, 2024 01:59 PM Reporting Lab: [facility] [address] [place] [phone] Performing Lab: [facility] [address] [place] [phone] [place] [address] URINALYSI S (STL-PB) URN.UROBIL INOGEN Normalmg /dL 04/06 Specimen Type: URINE No comment entered. Ordering Provider: JUANA STOLL Report Released Date/Time: Apr 04, 2024 01:59 PM Reporting Lab: [facility] [address] [place] [address] Performing Lab: [facility] [address] [place] [address] [facility] URINALYSI S (STL-PB) HEMOGLOBIN [MASS/VOLU ME] IN URINE BY TEST STRIP Negative mg/dL 04/06 Specimen Type: URINE No comment entered. Ordering Provider: JUANA STOLL Report Released Date/Time: Apr 04, 2024 01:59 PM Reporting Lab: [facility] [address] [place] [phone] Performing Lab: [facility] [address] [place] [phone] [facility] URINALYSI S (STL-PB) KETONES [MASS/VOLU ME] IN URINE BY TEST STRIP 10 mg/dL 04/06 H Specimen Type: URINE No comment entered. Ordering Provider: JUANA STOLL Report Released Date/Time: Apr 04, 2024 01:59 PM Reporting Lab: [facility] [address] [facility] [address] Performing Lab: [facility] [address] [facility] [address] [facility] URINALYSI S (STL-PB) URN.LEUK.E ST. Negative mg/dL 04/06 Specimen Type: URINE No comment entered. Ordering Provider: JUANA STOLL Report Released Date/Time: Apr 04, 2024 01:59 PM Reporting Lab: [facility] [address] [place] [phone] Performing Lab: [facility] [address] [place] [phone] [facility] URINALYSI S (STL-PB) SPECIFIC GRAVITY OF URINE 1.028 04/06 Specimen Type: URINE No comment entered. Ordering Provider: JUANA STOLL Report Released Date/Time: Apr 04, 2024 01:59 PM Reporting Lab: [facility] [address] [place] [phone] Performing Lab: [facility] [address] [place] [phone] [facility] Vital Signs Combined list of inpatient and outpatient Vital Signs from Department of Defense and Veterans Affairs, ranging from 12 months to all on record, depending upon the facility. Vital Sign Value Date Comments Source SYSTOLIC BLOOD PRESSURE 149 05/15/2024 12:52:29 [facility] DIASTOLIC BLOOD PRESSURE 83 05/15/2024 12:52:29 [facility] PULSE OXIMETRY 98 05/15/2024 12:52:29 [facility] WEIGHT 197.2 05/15/2024 12:52:29 [facility] BMI 30 kg/m2 05/15/2024 12:52:29 [facility] PAIN 5 05/15/2024 12:52:29 [facility] HEIGHT 68 05/15/2024 12:52:29 [facility] [place] [facility] TEMPERATURE 98.3 05/15/2024 12:52:29 STTamar LEES [facility] PULSE 74 05/15/2024 12:52:29 STTamar [facility] RESPIRATION 18 05/15/2024 12:52:29 STTamar LEES [facility] SYSTOLIC BLOOD PRESSURE 139 05/08/2024 11:44:14 [facility] DIASTOLIC BLOOD PRESSURE 74 05/08/2024 11:44:14 [facility] PULSE OXIMETRY 93 05/08/2024 11:44:14 [facility] TEMPERATURE 98.4 05/08/2024 11:44:14 [facility] PULSE 89 05/08/2024 11:44:14 Tamar Garcia [facility] RESPIRATION 18 05/08/2024 11:44:14 [facility] Encounters Combined list of: 1) Encounters from Department of [facility] Affairs facilities going backup to the last 18 months, not all VA inpatient encounters are included; 2) Encounters from the Department of [facility] facilities going backup to 280 months. Location Location Details Encounter Type Encounter Number Reason For Visit Attending Provider ADM Date DC Date Status Disposition Source [facility] Outpatient Encounter [id number] 01/28 [facility] N [facility] Outpatient Encounter [id number] 02/02 [facility] N [facility] Outpatient Encounter [id number] 02/08 [facility] N [facility] Outpatient Encounter [id number] 02/09 [facility] N [facility] Outpatient Encounter [id number] TERESA BARCLAYALBERT 02/16 [facility] OFFICE O/P EST HI 40-54 MIN [id number] Diagnos is: ICD-10- CM M54.50 Low back pain, unspeci fied MACKENZIE LEON 02/17 [facility] Outpatient Encounter [id number] 02/22 [facility] Outpatient Encounter [id number] 02/22 [facility] Outpatient Encounter [id number] JUSTEN MILLER 02/24 [facility] SELF CARE MNGMENT TRAINING [id number] Diagnos is: ICD-10- CM R54 Age-rel ated physica l eveit y AYDEN MAGALLANES 03/04 [facility] Outpatient Encounter [id number] 03/15 [facility] Outpatient Encounter [id number] 05/[address] [facility] IMG RTA DETCJ/MNTR DS STAFF [id number] Diagnos is: ICD-10- CM Z13.5 Encount er for screeni ng for eye and ear disorde PRAMOD Garcia 05/[address] [facility] OFFICE O/P EST MOD 30 MIN [id number] Diagnos is: ICD-10- CM G20.C Makeda onism, unspeci fied JUANA STOLL 05/[address] [facility] HC PRO PHONE CALL 5-10 MIN [id number] Diagnos is: ICD-10- CM Z74.09 Other reduced mobilit y Juan JAMES 05/20 [facility] Outpatient Encounter [id number] Diagnos is: ICD-10- CM Z13.5 Encount er for screeni ng for eye and ear disorde MATT Dowell 05/20 [facility] Outpatient Encounter [id number] PRAMOD NARAYAN 05/20 [facility] Outpatient Encounter [id number] 06/07 [facility] WHEELCHAIR MNGMENT TRAINING [id number] Diagnos is: ICD-10- CM G20.C Makeda onism, unspeci fied IVETTE PITTMAN 07/14 [facility] Outpatient Encounter [id number] 08/01 [facility] Outpatient Encounter [id number] Juan ESCOBAR 08/08 [facility] Outpatient Encounter [id number] 08/[address] [facility] HC PRO PHONE CALL 5-10 MIN [id number] Diagnos is: ICD-10- CM Z74.09 Other reduced mobilit y Juan JAMES KEI 08/16 [facility] Outpatient Encounter [id number] 08/17 [facility] Outpatient Encounter [id number] 08/23 [facility] Outpatient Encounter [id number] 11/[address] [facility] HC PRO PHONE CALL 5-10 MIN [id number] Diagnos is: ICD-10- CM Z74.2 Need for assist at home and no house memb able to render care Juan JAMES 11/04 [facility] CASE MANAGEMENT [id number] Diagnos is: ICD-10- CM G20.C Makeda onism, unspeci fied GHISLAINE POSEY 11/09 [facility] Outpatient Encounter [id number] GHISLAINE POSEY 11/09 [facility] HC PRO PHONE CALL 5-10 MIN [id number] Diagnos is: ICD-10- CM G45.9 Transie nt cerebra l ischemi c attack, unspeci fied SMOOTH SULLIVAN 11/17 [facility] CASE MANAGEMENT [id number] Diagnos is: ICD-10- CM G20.C Makeda onism, unspeci fied GHISLAINE POSEY 12/14 [facility] Outpatient Encounter [id number] PEREZ HDEZMAXIMGHISLAINE Garcia 12/14 [facility] Outpatient Encounter [id number] 12/19 [facility] Outpatient Encounter [id number] 12/[address] [facility] OFFICE O/P EST LOW 20 MIN [id number] Diagnos is: ICD-10- CM G20.C Makeda onism, unspeci fied JUANA STOLL 12/29 [facility] CASE MANAGEMENT [id number] Diagnos is: ICD-10- CM G20.C Makeda onism, unspeci fied PEREZ KETTYMAXIMGHISLAINE Jose 12/30 [facility] Outpatient Encounter [id number] 01/11 [facility] Outpatient Encounter [id number] 01/18 [facility] Outpatient Encounter [id number] 01/18 [facility] Outpatient Encounter [id number] [id number] 01/30 [facility] [id number] 02/07 [facility] Outpatient Encounter [id number] 03/22 [facility] Outpatient Encounter [id number] 03/24 [facility] Outpatient Encounter [id number] 03/27 [facility] Outpatient Encounter [id number] [id number] GHISLAINE POSEY 04/11 [facility] Outpatient Encounter [id number] [id number] 05/01 [facility] OFFICE O/P EST LOW 20 MIN 04346-3.65 [id number] Diagnos is: ICD-10- CM G20.C Makeda onism, unspeci CASSIUS Lara IS J 05/08 [facility] Outpatient Encounter [id number] 05/[address] [facility] OFFICE O/P EST MOD 30 MIN [id number] Diagnos is: ICD-10- CM N40.1 Benign prostat ic hyperpl jaciel with lower urinary tract symp JUANA STOLL 05/15 [facility] Outpatient Encounter [id number] 05/31 [facility] Out[facility] Encounter [id number] [id number] 06/06 [facility] [facility] Outpatient Encounter [id number] 06/07 [facility] Outpatient Encounter [id number] 06/12 [facility] OFFICE O/P EST MOD 30 MIN [id number] Diagnos is: ICD-10- CM N40.1 Benign prostat ic hyperpl jaciel with lower urinary tract symp PENELOPE MORALES 06/12 [facility] N [facility] Outpatient Encounter [id number] 07/14 [facility] CASE MANAGEMENT [id number] Diagnos is: ICD-10- CM G20.C Makeda onleah, kimoi GHISLAINE Ngo 07/18 [facility] N Social History Combined list of available smoking, tobacco, and other social history from Department of Defense and Veterans Affairs facilities. Social History Type Response Date Comment [facility] e Tobacco smoking status NHIS VA-TOBACCO USE FORMER CIGARETTES 05/15/2024 STTamar NABEEL [facility] History of tobacco use VA-TOBACCO NEVER USED OTHER TYPE 05/15/2024 STTamar NABEEL [facility] History of tobacco use VA-TOBACCO FORMER USER 02/17/2023 [facility] History of tobacco use QUIT TOBACCO >7 YEARS AGO 12/19/2013 Tamar NABEEL [facility] History of tobacco use QUIT TOBACCO >7 YEARS AGO 09/02/2012 Tamar NABEEL [facility] History of tobacco use QUIT TOBACCO >7 YEARS AGO 02/03/2010 Tamar NABEEL [facility] History of tobacco use CURRENT TOBACCO USER 12/24/2008 Tamar Poon [facility] History of tobacco use QUIT TOBACCO IN THE LAST 12 MONTHS 12/12/2007 Tamar LEES [facility] History of tobacco use TOBACCO OFFERED STOP SMOKING CLINIC 06/30/2007 Tamar LEES [facility] History of tobacco use CURRENT TOBACCO USER 12/17/2006 Tamar Poon [facility] History of tobacco use CURRENT TOBACCO USER 06/04/2006 Tamar LEES [facility] History of tobacco use CURRENT TOBACCO USER 11/18/2005 [facility] NABEEL [facility] History of tobacco use CURRENT NON-TOBACCO USER-HX OF USE 05/19/2005 Tamar LEES [facility] History of tobacco use CURRENT TOBACCO USER 09/10/2004 Tamar Poon [facility] History of tobacco use CURRENT TOBACCO USER 06/10/2004 Tamar Poon [facility] History of tobacco use CURRENT TOBACCO USER 06/27/2003 Tamar LEES [facility] History of tobacco use CURRENT TOBACCO USER 01/24/2003 Tamar LEES [facility] History of tobacco use CURRENT TOBACCO USER 09/20/2002 Tamar Poon [facility] History of tobacco use CURRENT TOBACCO USER 03/22/2002 Tamar LEES [facility] History of tobacco use CURRENT TOBACCO USER 09/21/2001 Tamar LEES [facility] History of tobacco use CURRENT TOBACCO USER 05/17/2001 Tamar LEES [facility] History of tobacco use CURRENT TOBACCO USER 01/17/2001 [facility] NABEEL [facility] Plan of Care List of future care activities from [facility] facilities. Additional future care activities may be listed in the Assessment and Plan section. Date/Time Care Activity Care Activity Detail Facili ty 12/13/2024 AMBULATORY - SURGERY AMBULATORY - SURGERY [facility] Advance Directives List of completed, amended, or rescinded Advance Directives on record at [facility] facilities. An actual copy of the Directive is not included. Date Advance Directive Provider Source 02/08/2023 ADVANCE DIRECTIVE DMITRIY WEBB [facility] 06/30/2007 ADVANCE DIRECTIVE SANTIAGO WALLER Tamar [facility]
--- OUTSIDE RECORDS SUMMARY | 2024-07-26 22:23 | XMS_ITS | Clinical Summary ---
Author Organization [facility] Address [address] [place] [address] Care Team Providers Care Consumer Marketing Analyst Name Role Phone Bubba Mari MD Primary Care Provider [phone] Allergies Active Allergy Reactions Criticality Noted Date [...] Comments Blood Pressure 146/80 04/13/2024 11:28 AM SENIOR SYSTEMS ARCHITECT Pulse 72 04/13/2024 11:28 AM SENIOR SYSTEMS ARCHITECT Temperature 36.7 C (98.1 F) 04/13/2024 11:28 AM SENIOR SYSTEMS ARCHITECT Respiratory Rate 16 04/27/2023 2:54 PM SENIOR SYSTEMS ARCHITECT Oxygen Saturation 99% 04/13/2024 11:28 AM SENIOR SYSTEMS ARCHITECT Inhaled Oxygen Concentration - - Weight 89.5 kg (197 lb 4.8 oz) 04/13/2024 11:28 AM SENIOR SYSTEMS ARCHITECT Height 172.7 cm (5' 8 ) 04/13/2024 11:28 AM SENIOR SYSTEMS ARCHITECT Body Mass Index 30 04/13/2024 11:28 AM SENIOR SYSTEMS ARCHITECT Plan of Treatment Upcoming Encounters Date Type Department Care Team (Late st Contact Info) Description 09/05/2024 1:40 PM CDT Office Visit [facility] Medical [facility] Multispecialty Care - [facility] [address], [address] [place] [address] Perfecto Marx MD [address] [place] [address] Health Maintenance Due Date Last Done Comments [...] or Tdap) 12/20/2023 12/19/2013, 05/17/2001 PHQ-2 (Physician Sullivan) 04/05/2024 12/02/2023 Meningococcal B Vaccine Aged Out No l onger eligible based on patient's age to complete this topic Meningococcal Vaccine Aged Out No anderson charly eligible based on patient's age to complete this topic RSV Immunizations Under 20 Months Aged Out No longer eligible b ased on patient's age to complete this topic Insurance [facility] Care Teams Consumer Marketing Analyst Relationship Specialty Start Date End Date Bubba Mari MD [address] [id number] PCP - General FAMILY PRACTICE 12/02/23
--- OUTSIDE RECORDS SUMMARY | 2024-07-26 22:23 | XMS_ITS ---
Author Organization [facility] Address [address] [facility] [address] [place], [place] [id number] Care Team Providers Care Lithograph Press Feeder Name Role Phone ADAM CUMMINGS Unavailable [phone] Bubba Mari Unavailable Unavailable REASON FOR VISIT [...] Location Date Provider Diagnosis [facility] [place] [address] [place], [place] [id number] 03/16/2024 ADAM CUMMINGS 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 ; Pain in right toe(s) M79.674 ; Pain in left toe(s) M79.675 and Unspecified atherosclerosis of [place] arteries of extremities, bilateral legs I70.203 Assessments [...] (ICD-10 - M79.675) 03/16/2024 Unspecified atherosclerosis of [place] arteries of extremities, bilateral legs (ICD-10 - [...] MATHUR, 08/24/2024 01:20:00 PM, [address], [address], [id number], Progress Notes * LOIS FAUSTOB:1945 ([age] yo M)Acc No.[id number]:03/16/2024 Patient: CATHERINE ARROYO Provider: Kanika Cummings DPM :1945 A ge:78 Y S ex:Male Date:03/16/2024 Address:[address] [place], [place] [id number] Subjective: * Chief Complaints: * * General [...] M79.675 4 . U nspecified atherosclerosis of [place] arteries of extremities, bilateral legs - I70.203 Plan: * Treatment: * Procedure Codes: * Follow Up: 9 weeks * Billing Information: * Visit Code: 86937 Office Visit, Est Pt., Level 3. * Procedure Codes: * Sign off status: Completed true * Provider: Kanika Cummings DPM Date: 05/17/2023 Generated for Tree acevedo/Norah/Jenna on: 0 07/26/2024 10:22 PM CDT History and Physical Notes * [...]
--- NOTE | 2024-07-26 22:28 | ED_ITS ---
HPI - Fall General Chief Complaint: Fall Stated Complaint: frequent fall, slurred speech, leaning to left Time Seen by Provider: 07/26/24 21:24 History of Present Illness HPI Narrative: 79-year-old male with history of Parkinson's disease and frequent falls presents to the emergency department with family at bedside for frequent falls and generalized weakness for the past month. Patient's family assist with history. States the patient lives at home with his . The patient is supposed to be ambulating with his walker but has only been using his cane. About a month ago he began having increase in falls and generalized weakness. The patient was started on oxybutynin by his neurologist about a month ago and they attributed his symptoms to the oxybutynin. They discontinued the patient off of his oxybutynin approximately in 2 weeks ago however symptoms have not improved. States he falls 2 to 3 times a day, a lot of the falls are unwitnessed and they are unsure if he hit his head. He is not anticoagulated. Today the patient states that he was walking with his cane and holding something in his other hand, was unable to hold onto the wall and stabilize himself and fell to the ground landing on his knees. States he did not hit his head or lose consciousness today. The patient is reporting pain to his knees from falling on them. He presents with a healing abrasion to the right knee. Last Tdap unknown. He denies other injuries or complaints including chest pain shortness of breath, abdominal pain. Upon arrival to the ED the patient was found to have a black substance in his mouth. Upon further questioning he states it is because he chewed up his iron supplement with pudding earlier today. Pt's neurologist is with [facility]. His PCP is Dr. Jimenez, he has an appointment scheduled within the following week. Related Data Home Medications ?Medication ?Instructions ?Recorded ?Confirmed ?Last Taken ?Type aspirin 81 mg tablet,delayed 81 mg PO Q48H 11/22/20 12/15/23 10/03/22 History release (Adult Aspirin Regimen) docusate sodium 50 mg capsule 50 mg PO Q48H 10/06/22 12/15/23 10/03/22 History timolol maleate 0.5 % eye drops 1 drp LEFT EYE DAILY 10/06/22 12/15/23 10/03/22 History cholecalciferol (vitamin D3) 125 125 mcg PO DAILY 01/24/24 Unknown History mcg (5,000 unit) capsule ferrous sulfate 325 mg (65 mg 325 mg PO DAILY 01/24/24 Unknown History iron) tablet (Feosol) multivitamin 1 tablet PO DAILY 01/24/24 Unknown History Allergies Allergy/AdvReac Type Severity Reaction Status Date / Time Sulfa (Sulfonamide Allergy Unknown HIVES Verified 07/21/24 20:25 Antibiotics) Review of Systems 2 Review of Systems: All systems reviewed & are unremarkable except as noted in HPI and below PMFSH Past Medical History Medical History Leg pain Shoulder pain Depressed Falls frequently Dizziness Elevated glucose Elevated bilirubin Screening for thyroid disorder Tinea unguium Lumbar spondylosis BMI 28.0-28.9,adult Abnormal MRI, lumbar spine Parkinsons disease Constipation Adenomatous polyp Abdominal pain Ataxia Screening for prostate cancer Surgical History Surgical History H/O knee surgery History of knee replacement procedure of left knee Family History Family History Sibling Cancer brain Hypertension Mother Family history of diabetes mellitus in first degree relative Cancer Father Cancer Unknown Family history of arthritis Family history of malignant neoplasm Sibling Brain tumor Malignant neoplasm of prostate Social History Social History Smoking status: Former smoker Second hand tobacco smoke exposure: Yes Alcohol intake: current Substance use: never Substance use type: does not use Do You Feel Safe in your Home?: Yes Lack of Transportation: No Lack of Food: Never True Current Housing: I Have Housing Concerned About Future Housing: No Difficulty Paying Gas/Electric Bills: No Difficulty Paying for Meds: No Currently Unemployed: No Education: High School Diploma/GED Difficulty w/ Childcare or Family Care: No Living arrangements: with family 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 Gender identity (if verbalized by the patient): Male Spiritual care concerns: No Agree to blood products: Yes Exam 2 Narrative: GENERAL: Well-appearing, well-nourished, and in no acute distress. HEAD: Normocephalic, atraumatic. EYES: EOMI ENT: Nares clear, no rhinorrhea or epistaxis. Mucous membranes moist. Black substance to tongue, lips, pharynx NECK: Supple. No midline cervical spinous tenderness, step-offs or deformities BACK: No midline thoracolumbar spinous tenderness, crepitus, step-offs or deformity CHEST: Clear to auscultation. No respiratory distress. HEART: Regular rate and rhythm. No murmur heard. Normal peripheral pulses. ABDOMEN: Soft, nontender, nondistended, normal active bowel sounds. EXTREMITIES: Diffuse tenderness to bilateral knees with full active and passive range of motion. DP pulses 2+. Sensation intact. Healing abrasion to the right knee with no active bleeding or surrounding erythema, no drainage. 2+ pitting edema bilateral lower extremities SKIN: Warm, dry, no rash. NEURO: No focal deficits. Alert and oriented x4. Speech is slow but not dysarthric. Cranial nerves 2-12 are intact. Strength 5/5 in BUE and BLE. Sensation intact throughout. Normal [id number]. No pronator drift. Course Vital Signs Vital signs: Vital Signs Temperature 97.1 F L 07/26/24 21:18 Pulse Rate 99 07/26/24 21:18 Respiratory Rate 16 07/26/24 21:18 Blood Pressure 120/49 L 07/26/24 21:18 Pulse Oximetry 99 07/26/24 21:18 Oxygen Delivery Room Air 07/26/24 21:18 Temperature 97.1 F L 07/26/24 21:18 Pulse Rate 99 07/27/24 01:14 Respiratory Rate 17 07/27/24 01:14 Blood Pressure 162/87 H 07/27/24 01:14 Pulse Oximetry 97 07/27/24 01:14 Oxygen Delivery Room Air 07/26/24 21:44 MDM - Fall MDM Narrative Medical decision making narrative: 79-year-old male with history of Parkinson's disease and frequent falls presents to the ED with family at bedside for increased generalized weakness and frequent falls for the past several weeks. Triage vitals are stable. Exam significant for the above. Per triage note patient's family is concerned for CVA. Patient was evaluated at stroke stop by physician with NIHSS 0. Patient has no lateralizing neurologic deficits. Sx have been present for several weeks and the patient has no findings concerning for acute CVA. Given frequent falls and progressive weakness, will order broad workup including lab work, UA, chest x- ray, CT brain and cervical spine, x-ray of bilateral knees. Tdap updated. Lab work shows no leukocytosis. Hemoglobin is low at 12.6 with normal MCV and MCH. Most recent hemoglobin 01/26 is 13.5. Chemistries with mild hypokalemia of 3.3 which is been orally repleted. Magnesium is within normal limits. UA with hematuria and trace leuk esterase, no white blood cells or bacteria. UDS negative. EKG shows normal sinus rhythm, normal WV interval, normal QRS duration, normal QTC, no ischemic changes. Troponin is undetectable. CT brain and cervical spine show no acute traumatic findings, no acute intracranial findings. Chest x-ray without acute cardiopulmonary findings. X-ray bilateral knee show no acute findings. Lactic within normal limits. ProBNP within normal limits. TSH is low at 0.239, however reflex T4 within normal limits. Pt and family updated on results. He did report lower back pain after laying on the CT table and was given Tylenol for this with improvement. No point tenderness to back on repeat exam. While discussing patient's workup, patient endorsed he is now having lower abdominal pain and is concerned he has diverticulitis. Reports a hx of this and admits to eating cashews earlier. Abdomen is soft with diffuse mild lower tenderness, no rebound, guarding or rigidity. Shared decision making regarding further imaging. Pt and family would like CT abd/pelvis. I suspect patient's overall symptoms are due to progressing Parkinsons. Discussed close f/u with PCP. Strongly advised that he always ambulate carefully and with a walker. Pending CT abd/pelvis at time of sign-out to Dr. Perdomo. Lab Data 07/26/24 22:24 07/26/24 22:23 Labs: Lab Results 07/26/24 07/26/24 07/26/24 Range/Units 21:15 22:22 22:23 WBC (4.5-10.0) K/mm3 RBC (4.6-6.20) M/mm3 Hgb (14.0-18.0) g/dL Hct (42.0-52.0) % MCV (80-100) fl MCH (26-34) pg MCHC (32-36) g/dl RDW (11.5-14.5) % Plt Count (150-375) k/mm3 MPV (7.4-10.4) fl Immature Gran % (Auto) (0-0.5) % Neut % (Auto) (45.5-73.1) % Lymph % (Auto) (18.3-44.2) % [place] % (Auto) (2.6-8.5) % Eos % (Auto) (0-4.4) % Baso % (Auto) (0.2-1.2) % Lymph # (Auto) (0.9-3.2) K/mm3 [place] # (Auto) (0.1-0.6) K/mm3 Eos # (Auto) (0-0.3) K/mm3 Baso # (Auto) (0.0-0.1) K/mm3 Abs Immat Gran (auto) (0.00-0.031) K/mm3 Absolute Neuts (auto) (1.3-6.7) K/mm3 Absolute Nucleated RBC (0.0-0.012) K/mm3 Nucleated RBC % (0.0-0.2) % PT (11.1-14.7) Seconds INR APTT (22.3-36.8) Seconds Sodium 142 (137-145) mmol/L Potassium 3.3 L (3.4-5.0) mmol/L Chloride 106 (98-107) mmol/L Carbon Dioxide 25 (22-30) mmol/L Anion Gap 11 (4-12) mmol/L BUN 28 H (9-20) mg/dL Creatinine 1.02 (0.7-1.3) mg/dL Estim Creat Clear Calc 47 ml/min Estimated GFR > 60 (59 - ) Glucose 97 (65-110) mg/dL POC Capillary Glucose 105 (65-105) mg/dl Lactic Acid (0.7-2.0) mmol/L Calcium 9.3 (8.4-10.2) mg/dL Magnesium 2.1 (1.6-2.3) mg/dL Total Bilirubin 1.1 (0.2-1.3) mg/dL AST 22 (17-59) U/L ALT 17 (6-50) U/L Alkaline Phosphatase 136 H (38-126) U/L Troponin I < 0.012 (0.000-0.034) ng/mL NT-Pro-B Natriuret Pep 111 H (19.9-100) pg/mL Total Protein 7.0 (6.3-8.2) g/dL Albumin 4.2 (3.5-5.1) g/dL TSH 0.239 L (0.465-4.680) uIU/mL Free T4 1.27 (0.78-2.19) ng/dL Urine Color (Yellow) Urine Appearance (Clear) Urine pH (5.0-9.0) Ur Specific [place] (1.001-1.035) Urine Protein (Negative) mg/dL Urine Glucose (UA) (Negative) mg/dL Urine Ketones (Negative) mg/dL Ur Blood (Man) (Negative) Urine Nitrate (Negative) Urine Bilirubin (Negative) Urine Urobilinogen (<2.0) mg/dL Add Ur Microanalysis Leukocyte Esterase Rfl (Negative) INES/UL Urine RBC (0-2) /hpf Urine WBC (0-3) /hpf Ur Squamous Epith Cells (Few) /hpf Amorphous Sediment (None) Urine Bacteria /hpf Urine Casts Urine Opiates Screen (Negative) Urine Methadone Screen (Negative) Ur Barbiturates Screen (Negative) Ur Phencyclidine Scrn (Negative) Ur Amphetamine Screen (Negative) U Benzodiazepines Scrn (Negative) Urine Cocaine Screen (Negative) U Cannabinoids Screen (Negative) 07/26/24 Range/Units 22:24 WBC 7.3 (4.5-10.0) K/mm3 RBC 4.17 L (4.6-6.20) M/mm3 Hgb 12.6 L (14.0-18.0) g/dL Hct 38.4 L (42.0-52.0) % MCV 92.1 (80-100) fl MCH 30.2 (26-34) pg MCHC 32.8 (32-36) g/dl RDW 13.8 (11.5-14.5) % Plt Count 194 (150-375) k/mm3 MPV 9.7 (7.4-10.4) fl Immature Gran % (Auto) 0.4 (0-0.5) % Neut % (Auto) 72.9 (45.5-73.1) % Lymph % (Auto) 16.7 L (18.3-44.2) % [place] % (Auto) 7.4 (2.6-8.5) % Eos % (Auto) 2.1 (0-4.4) % Baso % (Auto) 0.5 (0.2-1.2) % Lymph # (Auto) 1.22 (0.9-3.2) K/mm3 [place] # (Auto) 0.5 (0.1-0.6) K/mm3 Eos # (Auto) 0.2 (0-0.3) K/mm3 Baso # (Auto) 0.0 (0.0-0.1) K/mm3 Abs Immat Gran (auto) 0.03 (0.00-0.031) K/mm3 Absolute Neuts (auto) 5.3 (1.3-6.7) K/mm3 Absolute Nucleated RBC 0.000 (0.0-0.012) K/mm3 Nucleated RBC % 0.0 (0.0-0.2) % PT 14.4 (11.1-14.7) Seconds INR 1.1 APTT 31.5 (22.3-36.8) Seconds Sodium (137-145) mmol/L Potassium (3.4-5.0) mmol/L Chloride (98-107) mmol/L Carbon Dioxide (22-30) mmol/L Anion Gap (4-12) mmol/L BUN (9-20) mg/dL Creatinine (0.7-1.3) mg/dL Estim Creat Clear Calc ml/min Estimated GFR (59 - ) Glucose (65-110) mg/dL POC Capillary Glucose (65-105) mg/dl Lactic Acid 1.5 (0.7-2.0) mmol/L Calcium (8.4-10.2) mg/dL Magnesium (1.6-2.3) mg/dL Total Bilirubin (0.2-1.3) mg/dL AST (17-59) U/L ALT (6-50) U/L Alkaline Phosphatase (38-126) U/L Troponin I (0.000-0.034) ng/mL NT-Pro-B Natriuret Pep (19.9-100) pg/mL Total Protein (6.3-8.2) g/dL Albumin (3.5-5.1) g/dL TSH (0.465-4.680) uIU/mL Free T4 (0.78-2.19) ng/dL Urine Color Yellow (Yellow) Urine Appearance Turbid H (Clear) Urine pH 5.5 (5.0-9.0) Ur Specific [place] 1.021 (1.001-1.035) Urine Protein Trace (Negative) mg/dL Urine Glucose (UA) Negative (Negative) mg/dL Urine Ketones 1+ H (Negative) mg/dL Ur Blood (Man) Negative (Negative) Urine Nitrate Negative (Negative) Urine Bilirubin Negative (Negative) Urine Urobilinogen 1.0 (<2.0) mg/dL Add Ur Microanalysis Reviewed Leukocyte Esterase Rfl Trace H (Negative) INES/UL Urine RBC 11-20 H (0-2) /hpf Urine WBC 0-5 (0-3) /hpf Ur Squamous Epith Cells None seen (Few) /hpf Amorphous Sediment Few H (None) Urine Bacteria None seen /hpf Urine Casts 6-10 Urine Opiates Screen Negative (Negative) Urine Methadone Screen Negative (Negative) Ur Barbiturates Screen Negative (Negative) Ur Phencyclidine Scrn Negative (Negative) Ur Amphetamine Screen Negative (Negative) U Benzodiazepines Scrn Negative (Negative) Urine Cocaine Screen Negative (Negative) U Cannabinoids Screen Negative (Negative) Discharge Plan Discharge Clinical Impression: Parkinson disease, Normocytic anemia, Frequent falls Hematuria Qualifiers: Hematuria type: benign essential microscopic Qualified Code(s): R31.1 - Benign essential microscopic hematuria Patient Disposition: Home Condition: Stable Instructions: Antibiotic Form, Parkinson Disease (ED), Hematuria (ED), Fall Prevention (ED) Additional Instructions: You were evaluated in the emergency department for weakness and frequent falls. Your workup here has been reassuring. Incidentally were found to be anemic and also had some blood in your urine. Please follow-up your primary care provider neurologist regarding this for further evaluation. Please make sure you are always ambulating with a walker in her ambulating slowly and carefully. Return to the emergency department if you fall and hit your head, lose consciousness, develop fever, chest pain or other concerning symptoms. Patient Language: Citizen Of [place] Prescriptions: No Action aspirin [Adult Aspirin Regimen] 81 mg tablet,delayed release (DR/EC) 81 mg PO Q48H ferrous sulfate [Feosol] 325 mg (65 mg iron) tablet 325 mg PO DAILY cholecalciferol (vitamin D3) 125 mcg (5,000 unit) capsule 125 mcg PO DAILY multivitamin Tablet 1 tablet PO DAILY docusate sodium 50 mg Capsule 50 mg PO Q48H timolol maleate 0.5 % drops 1 drp LEFT EYE DAILY ropinirole 1 mg tablet 1 mg PO BID Qty: 180 3RF carbidopa-levodopa 10-100 mg tablet 1 tablet PO TID Qty: 20 0RF atorvastatin 40 mg tablet See Rx Instructions .ROUTE .COMPLEX Qty: 90 3RF Dose Instruction: TAKE 1 TABLET EVERY DAY Rx Instructions: TAKE 1 TABLET EVERY DAY tizanidine 2 mg tablet See Rx Instructions .ROUTE .COMPLEX Qty: 90 3RF Dose Instruction: TAKE 1 TABLET AT BEDTIME FOR MUSCLE SPASTICITY Rx Instructions: TAKE 1 TABLET AT BEDTIME FOR MUSCLE SPASTICITY amitriptyline 25 mg tablet 50 mg PO HS Qty: 180 1RF tamsulosin 0.4 mg capsule 0.4 mg PO DAILY Qty: 90 1RF duloxetine 60 mg capsule,delayed release(DR/EC) 60 mg PO DAILY Qty: 90 1RF meloxicam 7.5 mg tablet 7.5 mg PO DAILY Qty: 90 1RF omeprazole 40 mg capsule,delayed release(DR/EC) See Rx Instructions .ROUTE .COMPLEX Qty: 90 3RF Dose Instruction: TAKE 1 CAPSULE EVERY DAY Rx Instructions: TAKE 1 CAPSULE EVERY DAY carbidopa-levodopa 25-100 mg tablet 1 tablet PO TID Qty: 21 1RF Rx Instructions: short supply Follow-up/Referrals: Rainer Chauhan MD [Physician] - Bubba Mari MD [Primary Care Provider] -
[2024-07-26 22:31] VITALS: BP 144/83; PULSE 91; RESP 22; O2SAT 97
[2024-07-26 22:33] LABS: Basophils Percent Auto 0.5 % (0.2-1.2); Eosinophils Absolute Auto 0.2 K/mm3 (0-0.3); Eosinophils Percent Auto 2.1 % (0-4.4); Hematocrit 38.4 % (42.0-52.0); Hemoglobin 12.6 g/dL (14.0-18.0); Immature Granulocyte Absolute 0.03 K/mm3 (0.00-0.031); Immature Granulocyte Percent A 0.4 % (0-0.5); Lymphocytes Absolute Auto 1.22 K/mm3 (0.9-3.2); Lymphocytes Percent Auto 16.7 % (18.3-44.2); Mean Corpuscular HGB Conc 32.8 g/dl (32-36); Mean Corpuscular Hemoglobin 30.2 pg (26-34); Mean Corpuscular Volume 92.1 fl (80-100); Mean Platelet Volume 9.7 fl (7.4-10.4); Monocytes Absolute Auto 0.5 K/mm3 (0.1-0.6); Monocytes Percent Auto 7.4 % (2.6-8.5); Neutrophils Absolute Auto 5.3 K/mm3 (1.3-6.7); Neutrophils Percent Auto 72.9 % (45.5-73.1); Platelet Count Result 194 k/mm3 (150-375); Red Blood Count 4.17 M/mm3 (4.6-6.20); Red Cell Distribution Width 13.8 % (11.5-14.5); White Blood Count 7.3 K/mm3 (4.5-10.0)
[2024-07-26 22:42] LABS: Lactic Acid Reflex 1.5 mmol/L (0.7-2.0)
[2024-07-26 22:43] LABS: Alanine Aminotransferase 17 U/L (6-50); Albumin Level 4.2 g/dL (3.5-5.1); Alkaline Phosphatase 136 U/L (38-126); Anion Gap 11 mmol/L (4-12); Aspartate Amino Transferase 22 U/L (17-59); Bilirubin,Total 1.1 mg/dL (0.2-1.3); Blood Urea Nitrogen 28 mg/dL (9-20); Calcium 9.3 mg/dL (8.4-10.2); Carbon Dioxide 25 mmol/L (22-30); Chloride 106 mmol/L (98-107); Estimated CRCL calculation 47 ml/min; Estimated Glomerular Filt Rate > 60; Glucose 97 mg/dL (65-110); Potassium 3.3 mmol/L (3.4-5.0); Sodium 142 mmol/L (137-145)
[2024-07-26 22:45] LABS: INR 1.1; Prothrombin Time 14.4 Seconds (11.1-14.7)
[2024-07-26 22:46] LABS: Add Urine Microscopic? YES; Appearance Urine Turbid (Clear); Bacteria Urine None Seen /hpf; Bilirubin Urine Negative (Negative); Blood Urine Negative (Negative); Color Urine Yellow (Yellow); Glucose Urine UA Negative (Negative); Ketones Urine 1+ mg/dL (Negative); Leukocyte Esterase Ur Trace LEU/UL (Negative); Need Manual Microscopic Reviewed; Nitrate Urine Negative (Negative); Partial Thromboplastin Time 31.5 Seconds (22.3-36.8); Protein Urine Trace mg/dL (Negative); Specific Grav Ur 1.021 (1.001-1.035); Squamous Epithelial Cell Urine None Seen /hpf (Few); WBC Urine 0-5 /hpf (0-3); pH Urine 5.5 (5.0-9.0)
[2024-07-26 22:51] LABS: Amorphous Sediment Urine Few
[2024-07-26 22:53] LABS: Amphetamine Screen Urine Negative (Negative); Barbiturate Screen Urine Negative (Negative); Benzodiazepines Screen Urine Negative (Negative); Cannabinoid Screen Urine Negative (Negative); Cocaine Screen Urine Negative (Negative); Methadone Screen Urine Negative (Negative); Opiate Screen Urine Negative (Negative); Phencyclidine Screen Urine Negative (Negative)
[2024-07-26 22:57] LABS: Glucose Point of Care 105 mg/dl (65-105)
[2024-07-26 23:01] VITALS: BP 167/86; PULSE 97; RESP 28; O2SAT 99
[2024-07-26 23:01] LABS: Troponin I < 0.012 ng/mL (0.000-0.034)
[2024-07-26 23:09] LABS: Magnesium 2.1 mg/dL (1.6-2.3)
[2024-07-26 23:20] LABS: Thyroid Stimulating Hormone 0.239 uIU/mL (0.465-4.680)
[2024-07-26] MEDS: ACETAMINOPHEN 500 MG TABLET 1000 MG PO (23:25)
[2024-07-26] MEDS: POTASSIUM CHLORIDE 20 MEQ PACKET (FOR LIQUID) PO (23:25)
[2024-07-26] MEDS: TETANUS,DIPHTHERIA,AC PERTUSSIS ADULT (0.5 ML) BOOSTRIX IM (23:26)
[2024-07-26 23:48] LABS: NT Pro B Type Natriuretic Pept 111 pg/mL (19.9-100)
[2024-07-27 00:21] LABS: Free T4 Free Thyroxine 1.27 ng/dL (0.78-2.19)
[2024-07-27 01:14] VITALS: BP 162/87; PULSE 99; RESP 17; O2SAT 97
[2024-07-27 02:35] VITALS: BP 158/84; PULSE 89; RESP 17; O2SAT 97
[2024-07-27 03:21] VITALS: BP 162/81; PULSE 96; RESP 20; TEMP 36.7; O2SAT 98
== END 2024-07-27 03:23 | disposition home or self-care (01) ==
PROVIDERS: Emergency Provider Physician Assistant; PCP Family Medicine
DX: G20.A1 Parkinson's disease without dyskinesia, without mention of fluctuations (principal); D64.9 Anemia, unspecified; R31.1 Benign essential microscopic hematuria; R29.6 Repeated falls; Z23 Encounter for immunization; F32.A Depression, unspecified; Z96.652 Presence of left artificial knee joint; Z86.0101 Personal history of adenomatous and serrated colon polyps; Z87.891 Personal history of nicotine dependence; M47.816 Spondylosis without myelopathy or radiculopathy, lumbar region; M17.11 Unilateral primary osteoarthritis, right knee; R94.31 Abnormal electrocardiogram [ECG] [EKG]
CPT/HCPCS: 36415; 70450; 71045; 72125; 73564; 74177; 80053; 80307; 81001; 82948; 83605; 83735; 83880; 84439; 84443; 84484; 85025; 85610; 85730; 90471; 90715; 93005; 99284; A9270; Q9967

== ENCOUNTER 2024-10-26 14:30 | Outpatient (RCR) | payer MEDICARE, SELFPAY ==
--- NOTE | 2024-08-29 14:32 | OPREHPOC ---
Outpatient Therapy Plan of Care This is a Multidisciplinary Plan of Care that may contain components documented by all disciplines (PT, OT, and ST.) PT Problem 1 PT Problem #1 Knowledge Deficit PT Goal 1 Goal / Goal Update *independent with HEP Target Visit 8 PT Problem 2 PT Problem #2 Impaired Strength PT Goal 1 Goal / Goal Update * increase strength of LE's to 4/5, to improve mobility and gait, transfer skills Target Visit 8 PT Problem 3 PT Problem #3 Impaired Functional Mobility PT Goal 1 Goal / Goal Update 1* 2 minute walking test distance of 150' with wheeled walker 2* 5 reps sit/stand from wheelchair, time of 38 seconds 3* sit/ stand transfer with use of 1 UE from wheelchair 4* Tinetti balance score of 14/28, to improve standing balance and gait skill Target Visit 8
--- NOTE | 2024-08-29 14:32 | PTOPEVAL1 ---
Assessment and note entered by Brisa Pederson, PT Evaluation Information Assessment Status Evaluation ICD-10 Condition Codes (PT) Pain in low back M54.50,Difficulty Walking R26.2, Abnormalities of gait and mobility R26.9,Weakness R53.1 Other ICD-10 Condition Codes ( Parkinson's [id number] PT) Onset July Subjective Information have had 5 falls in the past 6 months, to ER for 2 falls in July; have a fear of falling again; activity: in home use wheeled walker and wheel chair for distances; at home, grandson, daughter and brother assist with bathing, dressing, home tasks; have a chair lift for stairs at home; goal: want to walk without the walker and balance better; Reported Pain Level Pain Score 3: Self Report Additional Pain Score Comments bilateral knee and low back pain; Assessment PT Clinical Summary Nancy Alexis has the diagnosis' of Parkinson's, falls and LBP. He has had 5 falls in the past 6 months, with 2 going to the ER. At home, requires assistance for self care and home tasks, is using a rollator for in home distances and wheel chair for outings in community. He wants to start treatment for weakness and falls . With the evaluation: 5 reps sit/stand time of 56 seconds, from his wheelchair and use of both UE's; 2 minute walking test distance of 110' with wheeled walker and maximum walking distance of 130 '; Tinetti balance score of 8/28= high risk for falls; decreased strength and motor control of both LE's; decreased volume of voice. Skilled PT services are indicated to increase LE strength, transfer, gait and balance skills, with education for HEP and safety with mobility. Plan of Care Interventions Gait Training,Neuro Re-education,Patient/Caregiver Education,Therapeutic Activities,Therapeutic Exercise PT Services Indicated Yes Treatment Frequency and 1-2x/wk for 8 visits Duration These treatments will address the objective and functional deficits as defined above. The patient will be advanced safely and appropriately in order for the patient to progress towards his/her prior level of function. Additional exercises will be introduced and as well as a comprehensive home exercise program upon discharge, if needed, ?to ensure carryover of functional gains achieved in the clinic. This treatment plan has been reviewed and agreement upon by the patient.
--- NOTE | 2024-10-26 16:17 | OPREHPOC ---
Outpatient Therapy Plan of Care This is a Multidisciplinary Plan of Care that may contain components documented by all disciplines (PT, OT, and ST.) PT Problem 1 PT Problem #1 Knowledge Deficit PT Goal 1 Goal / Goal Update *independent with HEP 10-26-24 d/c goal met Target Visit 8 Progress Met PT Problem 2 PT Problem #2 Impaired Strength PT Goal 1 Goal / Goal Update * increase strength of LE's to 4/5, to improve mobility and gait, transfer skills 10-26-24 d/c goal not met- 3+ to 4-/ Target Visit 8 Progress Not Met PT Problem 3 PT Problem #3 Impaired Functional Mobility PT Goal 1 Goal / Goal Update 1* 2 minute walking test distance of 150' with wheeled walker 2* 5 reps sit/stand from wheelchair, time of 38 seconds 3* sit/ stand transfer with use of 1 UE from wheelchair 4* Tinetti balance score of 14/28, to improve standing balance and gait skill 10-26-24 d/c goals not met #1 75'; #2 43 seconds; #3 required bilateral UE use; #4 11/28 Target Visit 8 Progress Not Met
--- NOTE | 2024-10-26 16:17 | PTOPDC ---
Assessment and note entered by Brisa Pederson, PT Assessment Status Discharge ICD-10 Condition Codes (PT) Pain in low back M54.50,Difficulty Walking R26.2, Abnormalities of gait and mobility R26.9,Weakness R53.1 Other ICD-10 Condition Codes ( Parkinson's [id number] PT) Onset July Subjective Information have not had any falls; been trying to keep up with the exercises; his daughter is setting up PT through the [facility], so he wants to stop therapy here [facility]. Reported Pain Level Pain Score 3: Self Report Assessment PT Clinical Summary Marline has received a total of 8 PT sessions. With today's assessment, compared to initial evaluation: reports pain 3/10 in back; 2 minute walking test from 110' to 75' with rollator; 5 reps sit/stand time from wheelchair from 56 to 43 seconds with use of both UE's; gross strength of R and L LE 3+ to 4-/5; tinetti balance score of 8/ 26 is same; static standing time of 1 minute and 38 seconds; education for HEP completed. Continues to have rigid trunk and in standing, has flexion of trunk, hips and knees. The goals were partially met. Discharge PT services. His daughter is arranging for him to have Home Health PT through the [facility]. Stop therapy here. Plan of Care PT Services Indicated No
--- NOTE | 2024-10-27 09:40 | PCPTNOTE ---
October 11, 2024 S: Pt reports no new complaints. Continues to note fatigue and occaional HEP compliance when he watches the ball game. O: Gait 150ft with one standing break. Cueing needed to decrease shuffleling and posture, and wider stance. -side stepping in parallel bars, bwd, fwd walking in parallel bars with focus on posture and step length -step taps on 4 in step x 15 ea leg alternating -standing hip abduction, flex x 10 ea leg -marching x 20 ea leg -high marching fwd 3 laps Seated with yellow band -bilateral hip abduction x 15 -marches x 20 alternating -long arc quads 10x ea leg -hamstring curls ea leg x 10 A: Pt tolerated session well with increase distance with walking and only one standing break with gait. Improved strengthening with seated exercises. Pt has re-eval next visit. Pt: Re-eval next visit.
== END 2024-10-27 09:11 | disposition home or self-care (01) ==
LOC: ANHPT 14:30
PROVIDERS: PCP Family Medicine; Visit Provider Family Medicine
DX: R27.0 Ataxia, unspecified (principal); M47.816 Spondylosis without myelopathy or radiculopathy, lumbar region; G20.B1 Parkinson's disease with dyskinesia, without mention of fluctuations
CPT/HCPCS: 97110; 97116; 97161; 97530